=== PATIENT | female | born 1965 | race Caucasian/White ===

== ENCOUNTER 2018-07-26 13:02 | Emergency (ER) | payer OTHER ==
[~2018-07-26] VITALS: Ht 167.6 cm; Wt 68.0 kg
[~2018-07-26 13:02] MED LIST: BACTRIM DS TAB1 EACH PO; CEPHALEXIN500 MG PO; CIPRO500 MG PO; NORCO 5-325 TA1 EACH PO
== END 2018-07-26 13:31 | disposition home or self-care (01) ==
LOC: ED 13:02
DX: M79.602 Pain in left arm (principal); R21 Rash and other nonspecific skin eruption

== ENCOUNTER 2020-03-20 10:09 | Emergency (ER) | payer OTHER ==
[~2020-03-20] VITALS: Ht 167.6 cm; Wt 68.0 kg
--- OUTSIDE RECORDS SUMMARY | ~2020-03-20 | XMS | Encounter Summary ---
Demographics + + + | Address | [address] | | | [place] [address] | + + + | Home Phone | | + + + | Preferred Language | Unknown | + + + | Marital Status | | + + + | Congregational Affiliation | 1013 | + + + | Race | Unknown | + + + | Ethnic Group | Not or | + + + Author + + + | Author | [facility] | | | and [place] | + + + | Organization | [facility] | | | and [place] | + + + | Address | Unknown | + + + | Phone | Unavailable | + + + Support + + +---------+ + | Name | Relationship | Address | Phone | + + +---------+ + | Aggie Black | ECON | Unknown | | + + +---------+ + | Wily Beauregard | ECON | Unknown | | + + +---------+ + Care Team Providers + +------+ + | Care Uniform Patrol Police Officer Name | Role | Phone | + +------+ + | No, Physician | PCP | Unavailable | + +------+ + Reason for Visit +--------+ + | Reason | Comments | +--------+ + | Rash | | +--------+ + Encounter Details +--------+ + + + + | Date | Type | Department | Care Team | Description | +--------+ + + + + | 05/06/ | Emergency | [facility] | Bam Dean, | Herpes zoster | | 2017 | | [facility] | MD [address] | without complication | | | | CENTER [address] | [place], [place] | (Primary Dx); Chest | | | | [place], [place] | [address] | pain, unspecified | | | | [address] | | type | | | | [phone] | | | +--------+ + + + + Social History + + + +--------+------+ | Tobacco Use | Types | Packs/Day | Years | Date | | | | | Used | | + + + +--------+------+ | Current Every Day | Cigarettes | 1 | | | | Smoker | | | | | + + + +--------+------+ + + +---------+ + | Alcohol Use | Drinks/Week | oz/Week | Comments | + + +---------+ + | Yes | | | rarely | + + +---------+ + + + + | Sex Assigned at | Date Recorded | | | | + + + | Not on file | | + + + documented as of this encounter Last Filed Vital Signs + + + + + | Vital Sign | Reading | Time Taken | Comments | + + + + + | Blood Pressure | 110/96 | 05/06/2017 6:42 PM | | | | | PDT | | + + + + + | Pulse | 94 | 05/06/2017 6:42 PM | | | | | PDT | | + + + + + | Temperature | 36 C (96.8 F) | 05/06/2017 6:42 PM | | | | | PDT | | + + + + + | Respiratory Rate | 12 | 05/06/2017 6:42 PM | | | | | PDT | | + + + + + | Oxygen Saturation | 100% | 05/06/2017 6:42 PM | | | | | PDT | | + + + + + | Inhaled Oxygen | - | - | | | Concentration | | | | + + + + + | Weight | 65.8 kg (145 lb) | 05/06/2017 6:42 PM | | | | | PDT | | + + + + + | Height | 167.6 cm (5' 6") | 05/06/2017 6:42 PM | | | | | PDT | | + + + + + | Body Mass Index | 23.4 | 05/06/2017 6:42 PM | | | | | PDT | | + + + + + documented in this encounter Discharge Instructions AttachmentsThe following attachments cannot be sent through Care Everywhere.Asher (Herpe s Zoster) (Lebanese)documented in this encounter Medications at Time of Discharge + + + +---------+ + + | Medication | Sig | Dispensed | Refills | Start | End Date | | | | | | Date | | + + + +---------+ + + | acyclovir | Take 1 tablet by | 35 | 0 | 05/06/20 | | | (ZOVIRAX) 800 mg | mouth 5 times daily | tablet | | 17 | 7 | | tablet | for 7 days. | | | | | + + + +---------+ + + | | Take 1 tablet by | 30 | 0 | 05/06/20 | | | HYDROcodone-acetamin | mouth every 6 hours | tablet | | 17 | 8 | | ophen (NORCO) 5-325 | as needed. | | | | | | mg per tablet | | | | | | + + + +---------+ + + | lidocaine | Apply up to 3 | 30 | 0 | 05/06/20 | | | (LIDODERM) 5% patch | patches at once in a | patch | | 17 | 8 | | | 12 hour period to | | | | | | | affected area; | | | | | | | remove after 12 | | | | | | | hours | | | | | + + + +---------+ + + | methylPREDNISolone | Follow package | 21 | 0 | 05/06/20 | | | (MEDROL DOSEPAK) 4 | directions. | tablet | | 17 | 8 | | mg tablet | | | | | | + + + +---------+ + + documented as of this encounter ED Notes Amelia Juan RN - 05/06/2017 6:42 PM PDTC/o Rt rib/chest pain & rash. Possible shingles . axBam weathers MD - 05/06/2017 6:40 PM PDT [facility] Leslie Leung Emergency Department Encounter Note [address] [place] [id number] PCP:No Physician on file ED08 CHIEF COMPLAINT: Chief Complaint Patient presents with Rash HPI Leslie Leung is a 51 y.o. female who presents to the Emergency Department with chest wall pain on the right. This is a 51-year-old female who developed a severe burning type pain i n her back wrapping around her chest at about the T4 dermatome. Now she has a large vesicul ar burning rash associated with pain. There are lesions on the skin. The rash is made wors e with any movement. Nothing makes it better. Initially, she felt she had chest pain and h e could not breathe. That has resolved but now the pain from the rash has worsened. PAST MEDICAL & SURGICAL HISTORY History reviewed. No pertinent past medical history. History reviewed. No pertinent surgical history. CURRENT MEDICATIONS Previous Medications No medications on file ALLERGIES Allergies Allergen Reactions Sulfa Antibiotics Other (See Comments) "lip swelling" FAMILY AND SOCIAL HISTORY History reviewed. No pertinent family history. Social History Social History Marital status: Spouse name: N/A Number of children: N/A Years of education: N/A Social History Main Topics Smoking status: Current Every Day Smoker Packs/day: 1.00 Types: Cigarettes Smokeless tobacco: None Alcohol use Yes Comment: rarely Drug use: Types: Marijuana Sexual activity: Not Asked Other Topics Concern None Social History Narrative None REVIEW OF SYSTEMS Review of Systems Constitutional: Negative for chills and fever. Cardiovascular: Positive for chest pain. Skin: Positive for rash. As in history of present illness. A 10 system review was otherwise negative. PHYSICAL EXAM VITAL SIGNS: (first vital signs):Temp: 36 C (96.8 F) Pulse: 94 Resp: 12 SpO2: 100 % BP: (!) 110/96 Body mass index is 23.4 kg/m. Constitutional: female patient, anxious, alert and appropriate, conversant with nurse and staff. HEENT: Atraumatic, patient follows me around the room with their eyes, PERRL, Oropharynx s hows no redness, moist mucus membranes. Skin: Warm, Dry. Capillary refill is brisk <3 seconds and shows good perfusion on areas o f visible skin. The patient does have a vesicular rash over the T4 dermatome on the right side. It is very clearly shingles and stops at the midline Neurologic: Alert & oriented. Cranial nerves II-XII intact. No focal deficits. Gait is n ormal. Speech is normal. Psychiatric: Normal mood, affect and judgement. No evidence of suicidal or homicidal idea tion at this time. LABS No results found for this or any previous visit. IMAGING STUDIES Recent imaging: No results found for this or any previous visit (from the past 360 hour(s)). ED COURSE & MEDICAL DECISION MAKING Pertinent Labs & Imaging studies were reviewed along with EMS notes and retirement record s if applicable. Medication and Allergy lists reviewed in [facility]. Nurses note and old record s were reviewed if available within [facility] ER course 18:40 - Patient care initiated. After introducing myself to the patient, I performed a car eful history and physical examination. This is a 51-year-old female with a very clear-cut case of herpes zoster. We will treat wi th oral pain medications, steroids, antivirals, and patches. Last Set of Vital Signs: Temp: 36 C (96.8 F) Pulse: 94 Resp: 12 SpO2: 100 % BP: (!) 110 /96 FINAL IMPRESSION 1. Herpes zoster without complication 2. Chest pain, unspecified type Disposition: Discharge home Condition: Stable Follow-up Information [facility]. Specialty: Emergency Medicine Why: If symptoms worsen Contact information: [address] [place] [address] New Prescriptions ACYCLOVIR (ZOVIRAX) 800 MG TABLET Take 1 tablet by mouth 5 times daily for 7 days. HYDROCODONE-ACETAMINOPHEN (NORCO) 5-325 MG PER TABLET Take 1 tablet by mouth every 6 ho urs as needed. LIDOCAINE (LIDODERM) 5% PATCH Apply up to 3 patches at once in a 12 hour period to affe cted area; remove after 12 hours METHYLPREDNISOLONE (MEDROL DOSEPAK) 4 MG TABLET Follow package directions. Discontinued Medications No medications on file Discharge References/Attachments Shingles (Herpes Zoster) (Lebanese) Portions of this chart may have been created with [employer]ima voice recognition software. Occasi onal wrong-word or sound-alike substitutions may have occurred due to the inherent galdamez itations of voice recognition software. Please read the chart carefully and recognize, using context, where these substitutions have occurred. Bam Dean MD 05/06/17 1848 documented in this e ncounter Plan of Treatment Not on filedocumented as of this encounter Visit Diagnoses + + | Diagnosis | + + | Herpes zoster without complication - Primary | + + | Chest pain, unspecified type | + + documented in this encounter Administered Medications + +--------+ + +------+------+ | Medication Order | MAR | Action | Dose | Rate | Site | | | Action | Date | | | | + +--------+ + +------+------+ | HYDROcodone-acetaminophen | Given | 05/06/20 | 1 tablet | | | | (NORCO) 5-325 mg per tablet 1 | | 17 6:54 | | | | | tablet 1 tablet, Oral, ONCE, Mon | | PM PDT | | | | | 05/06/17 at 1845, For 1 dose | | | | | | + +--------+ + +------+------+ +---+---+ | | | +---+---+ + +---------+ +---------+---+ + | lidocaine (LIDODERM) 5% patch 3 | Patch | 05/06/20 | 3 | | Chest-Ri | | patch 3 patch, Transdermal, | Applied | 17 6:54 | patches | | ght | | ONCE, 05/06/17 at 1845, For 1 | | PM PDT | | | Anterior | | dose, Apply for 12 hours, then | | | | | | | remove for 12 hours., Time to | | | | | | | remove patch: 6:41 AM | | | | | | + +---------+ +---------+---+ + +---+---+ | | | +---+---+ documented in this encounter
--- OUTSIDE RECORDS SUMMARY | ~2020-03-20 | XMS | Encounter Summary ---
Demographics + + + | Address | [address] | | | [place] [address] | + + + | Home Phone | | + + + | Preferred Language | Unknown | + + + | Marital Status | | + + + | Congregation Affiliation | 1013 | + + + | Race | Unknown | + + + | Ethnic Group | Not or | + + + Author + + + | Author | [facility] | | | and [place] | + + + | Organization | [facility] | | | and [place] | + + + | Address | Unknown | + + + | Phone | Unavailable | + + + Support + + +---------+ + | Name | Relationship | Address | Phone | + + +---------+ + | Aggie Black | ECON | Unknown | | + + +---------+ + | Wily Darden | ECON | Unknown | | + + +---------+ + Care Team Providers + +------+ + | Care Manager Change Name | Role | Phone | + +------+ + PCP | Unavailable | + +------+ + Encounter Details +--------+ + + + + | Date | Type | Department | Care Team | Description | +--------+ + + + + | 02/15/ | Hospital | [facility] | Scottie Elliott | | | 2003 | Encounter | [facility] | [address] | | | | | EMERGENCY [address] | [place] [address] | | | | | [address] [place] | [phone] | | | | | [address] | | | | | | [phone] | Physician, Er | | +--------+ + + + + Social History + +-------+ +--------+------+ | Tobacco Use | Types | Packs/Day | Years | Date | | | | | Used | | + +-------+ +--------+------+ | Never Assessed | | | | | + +-------+ +--------+------+ + + + | Sex Assigned at | Date Recorded | | | | + + + | Not on file | | + + + documented as of this encounter Plan of Treatment Not on filedocumented as of this encounter Visit Diagnoses Not on filedocumented in this encounter"
--- OUTSIDE RECORDS SUMMARY | ~2020-03-20 | XMS | Encounter Summary ---
Demographics + + + | Address | [address] | | | [place] [address] | + + + | Home Phone | | + + + | Preferred Language | Unknown | + + + | Marital Status | | + + + | Sabianist Affiliation | 1013 | + + + | Race | Unknown | + + + | Ethnic Group | Not or | + + + Author + + + | Author | [facility] | | | and [place] | + + + | Organization | [facility] | | | [...] Team Providers + +------+ + | Care Cafeteria Helper Name | Role | Phone | + +------+ + | Miguel Gomez | PCP | | + +------+ + Reason for Visit +--------+ + | Reason | Comments | +--------+ + | Other | HCV | +--------+ + Evaluate & Treat (Routine) +--------+--------+ + + + + | Status | Reason | Specialty | Diagnoses / | Referred By | Referred To | | | | | Procedures | Contact | Contact | +--------+--------+ + + + + | Closed | | | Diagnoses | Jason, | Marialuisa, | | | | | Unspecified | TITO Rivera | [place], | | | | | viral | [address] | | | | | hepatitis C | [address] | | | | | without | [address] | | | | | hepatic coma | [place], | [place], | | | | | Procedures | [place] [address] | [place] [address] | | | | | office | Phone: | Phone: | | | | | visit | [phone] | [phone] | | | | | | Fax: | Fax: | | | | | | [phone] | [phone] | +--------+--------+ + + + + Encounter Details +--------+---------+ + + + | Date | Type | Department | Care Team | Description | +--------+---------+ + + + | 11/05/ | Office | [facility] | [facility], | Chronic hepatitis C | | 2019 | Visit | GASTROENTEROLOGY | [address] | without hepatic coma | | | | [address] | [address] | (HCC) (Primary Dx); | | | | [address] [place], [place] | [place], [place] | Heroin addiction | | | | [address] | [address] | (HCC) | | | | [phone] | | | +--------+---------+ + + + Social History + + + +--------+------+ | Tobacco Use | Types | Packs/Day | Years | Date | | | | | Used | | + + + +--------+------+ | Current Every Day | Cigarettes | 1 | | | | Smoker | | | | | + + + +--------+------+ + +---+---+---+ | Smokeless Tobacco: | | | | | Never Used | | | | + +---+---+---+ + + | Tobacco Cessation: Counseling Given: Yes | + + + + +---------+ + | Alcohol Use [...] + + + | Blood Pressure | 108/76 | 11/05/2018 10:15 AM | | | | | PDT | | + + + + + | Pulse | 81 | 11/05/2018 10:15 AM | | | | | PDT | | + + + + + | Temperature | 36.6 C (97.9 F) | 11/05/2018 10:15 AM | | | | | PDT | | + + + + + | Respiratory Rate | 16 | 11/05/2018 10:15 AM | | | | | PDT | | + + + + + | Oxygen Saturation | 100% | 11/05/2018 10:15 AM | | | | | PDT | | + + + + + | Inhaled Oxygen | - | - | | | Concentration | | | | + + + + + | Weight | 69.4 kg (153 lb) | 11/05/2018 10:15 AM | | | | | PDT | | + + + + + | Height | - | - | | + + + + + | Body Mass Index | 24.69 | 08/22/2017 11:03 AM | | | | | PST | | + + + + + documented in this encounter Functional Status + + + + | Functional Status | Response | Date of Assessment | + + + + | Are you deaf or do you have serious | No | 08/28/2017 | | difficulty hearing? | | | + + + + | Are you blind or do you have serious | No | 08/28/2017 | | difficulty seeing, even when wearing | | | | glasses? | | | + + + + | Do you have serious difficulty walking or | No | 08/28/2017 | | climbing stairs? (5 years old or older) | | | + + + + | Do you have difficulty dressing or bathing? | No | 08/28/2017 | | (5 years old or older) | | | + + + + | Because of a physical, mental, or emotional | No | 08/28/2017 | | condition, do you have difficulty doing | | | | errands alone such as visiting a doctor's | | | | office or shopping? [15 years old or | | | | older)] | | | + + + + + + + + | Cognitive Status | Response | Date of Assessment | + + + + | Because of a physical, mental, or emotional | No | 08/28/2017 | | condition, do you have serious difficulty | | | | concentrating, remembering, or making | | | | decisions? (5 years old or older) | | | + + + + documented as of this encounter Progress Notes Pascale Elam ARNP - 11/05/2018 10:00 AM PDTFormatting of this note might be differe nt from the original. PATIENT NAME: Leslie Wilson : 1965: AGE: 53 y.o. REFERRED BY: Miguel Gomez PRIMARY CARE: TITO Villa CHIEF COMPLAINT: Leslie Wilson is a 53 y.o. female referred by Miguel Gomez for evaluation and tr eatment of HCV. HISTORY OF PRESENT ILLNESS: She was initially diagnosed with HCV 20 years ago. Likely cause of infection of HCV is hist ory of IV drug use or intranasal drug use. Has never been treated for HCV in the past. She does not remember being told a fibrosis level. Last drank alcohol: last week, she had 4-5 vodka drinks. She reports that she typically dri nks about once every 6 months. Last smoked marijuana: about 6 months ago. Last used illegal drugs: This am. She is waiting for Methadone clinic to open. Clinic is se t to open 11/10/2018. She has appointment 11/11/2018 No known risk factors for NAFLD. There is no known personal or family history of autoimmune diseases. Denies ascites, jaundice, hematemesis, peripheral edema, sleep changes, or confusion. Allergies Allergen Reactions Sulfa Antibiotics Other (See Comments) "lip swelling" Past Medical History: Diagnosis Date Hepatitis C Tobacco abuse Past Surgical History: Procedure Laterality Date DILATION AND CURETTAGE OF UTERUS INCISION AND DRAINAGE Right 08/26/2017 Procedure: INCISION AND DRAINAGE RIGHT SHOULDER WITH WOUND CLOSURE OVER DRAIN; Surgeon: Diana Mclain MD; Location: [facility] MAIN OR ROTATOR CUFF REPAIR N/A 08/22/2017 Procedure: I&D of Right Shoulder Abscess and Wound Vac Placement; Surgeon: Ernesto wolfe MD; Location: [facility] MAIN OR TONSILLECTOMY AND ADENOIDECTOMY Family History Problem Relation Age of Onset TIA Mother Hypertension Mother Diabetes Mother Osteoporosis Mother Cancer Father Prostate Social History Socioeconomic History Marital status: Spouse name: Not on file Number of children: Not on file Years of education: Not on file Highest education level: Not on file Social Needs Financial resource strain: Not on file Food insecurity - worry: Not on file Food insecurity - inability: Not on file Transportation needs - medical: Not on file Transportation needs - non-medical: Not on file Occupational History Not on file Tobacco Use Smoking status: Current Every Day Smoker Packs/day: 1.00 Types: Cigarettes Smokeless tobacco: Never Used Substance and Sexual Activity Alcohol use: Yes Comment: rarely Drug use: Yes Types: Marijuana Sexual activity: Not on file Other Topics Concern Not on file Social History Narrative Not on file Review of Systems Constitutional: Negative for diaphoresis, fatigue, fever and unexpected weight change. HENT: Positive for rhinorrhea. Negative for congestion, hearing loss, mouth sores and troub le swallowing. Eyes: Negative for redness and visual disturbance. Respiratory: Positive for cough. Negative for choking, chest tightness, shortness of breath and wheezing. Cardiovascular: Negative for chest pain, palpitations and leg swelling. Gastrointestinal: Positive for nausea. Negative for abdominal distention, abdominal pain, a nal bleeding, blood in stool, constipation, diarrhea, rectal pain and vomiting. Endocrine: Denies enlarged thyroid Genitourinary: Negative for dysuria, flank pain and frequency. Musculoskeletal: Positive for back pain. Negative for arthralgias and joint swelling. Skin: Negative for color change and rash. Neurological: Positive for numbness. Negative for seizures, syncope, weakness and headaches . Hematological: Does not bruise/bleed easily. Denies anemia or enlarged lymph glands. Psychiatric/Behavioral: Negative for dysphoric mood. The patient is not nervous/anxious. OBJECTIVE: PHYSICAL EXAM General: well developed, well nourished, in no acute distress, no muscle wasting noted Head: normocephalic and atraumatic Eyes: Sclera clear Mouth: MMM Lungs: Clear to auscultate bilaterally and throughout Heart: regular rate and rhythm Abdomen: Soft, non tender, non distended, bowel tones positive times 4 quadrants, negative Kaycee y's sign, negative rebound tenderness, no guarding, no hepatosplenomegaly palpated. Msk: symmetrical with no deformity, with normal posture and gait, normal strength. Extremities: no clubbing, cyanosis, edema, or deformity noted Neurologic: no focal deficits, cranial nerves II-XII grossly intact, Negative for asterixis Skin: intact without lesions or rashes. Negative for spider angioma Psych: alert and cooperative; normal mood and affect; normal attention span and concentration, No visits with results within 1 Month(s) from this visit. Latest known visit with results is: Abstract on 09/18/2018 Component Date Value Ref Range Status HEP A IGM 09/19/2017 Non Reactive Non Reactive Final Hepatitis B Surface Ag, External 09/19/2017 Negative Final Hepatitis B Core Ab, Total 09/19/2017 Non Reactive Non Reactive Final HCV Ab 09/19/2017 Positive Final Signal/Cutoff 09/19/2017 38.98 Final ASSESSMENT: 1. Chronic hepatitis C without hepatic coma (HCC) US Abdomen Limited 2. Heroin addiction (HCC) PLAN: Liver fibrosis: A liver biopsy has never been done. Requesting labs from previous hepatitis C workup. Once these records have been reviewed, w devi then order additional laboratory tests as needed. Ordered abdominal ultrasound for routine screening for HCC. APRI Lab Results Component Value Date AST 37 08/23/2017 ALT 31 08/23/2017 PLT 305 08/28/2017 ALBUMIN 2.7 (L) 08/23/2017 MELD Lab Results Component Value Date BILITOT 0.3 08/23/2017 CREA 0.91 08/27/2017 NA 139 08/27/2017 Vaccination: If it has not been done, recommend patient is vaccinated for both Hepatitis A and Hepatitis B. Transmission: Discussed following infection control guidelines. Inform tattoo parlors and [facility] providers of HCV infection. Avoid sharing personal items that might have blood on them, such as razors, toothbrushes, and nail clippers.Despite low risk of transmission throu gh routine sexual contact, recommend safe sex practices, especially if multiple sexual partn ers. Substance use/abuse: Patient was educated on the importance of avoiding all alcohol, illega l drugs, and marijuana. Patient was advised that it does not safe to use heroin and then drive. Highly encouraged patient to have her friend drive her home. Patient agreed. Contraindications to HCV treatment: Absolute contraindications to HCV treatment include: 1. Short life expectancy.severe co morbidities (less than 10 years). 2. Known advanced cirrhosis with clinical decompensation (e.g. Ascites, encephalopathy, va riceal bleeding or SBP) 3. or inability to reliably use control. 4. Severe cardiac disease. Will follow up with results. Patient is to call with any question or concerns. Any fevers, chills, chest pain, SOB or other serious symptoms patient is to call the office or go to ER . Cc: TITO Villa This note was dictated using voice recognition software. Please contact me if there are an y questions regarding its content. Electronically signed by DL Ovalles at 10/27 6:06 PM PDTdocumented in this encounter Plan of Treatment + +---------+--------+ + + | Name | Type | Priori | Associated Diagnoses | Order Schedule | | | | ty | | | + +---------+--------+ + + | US Abdomen Limited | Imaging | Routin | Chronic hepatitis | Expected: | | | | e | C without hepatic | 11/05/2018, Expires: | | | | | coma (HCC) | 03/05/2019 | + +---------+--------+ + + documented as of this encounter Procedures + +--------+ + + + | Procedure Name | Priori | Date/Time | Associated Diagnosis | Comments | | | ty | | | | + +--------+ + + + | LABS - EXTERNAL SCAN | | 11/13/2018 | | Results for this | | | | 12:00 AM | | procedure are in the | | | | PDT | | results section. | + +--------+ + + + documented in this encounter Results LABS - EXTERNAL SCAN (11/13/2018 12:00 AM PDT) + + + | Narrative | Performed At | + + + | Ordered by an | | | unspecified provider. | | + + + documented in this encounter Visit Diagnoses + + | Diagnosis | + + | Chronic hepatitis C without hepatic coma (HCC) - Primary | + + | Heroin addiction (HCC) Opioid type dependence, unspecified | + + documented in this encounter
--- OUTSIDE RECORDS SUMMARY | ~2020-03-20 | XMS | Encounter Summary ---
Demographics + + + | Address | [address] | | | [place] [address] | + + + | Home Phone | | + + + | Preferred Language | Unknown | + + + | Marital Status | | + + + | Church Affiliation | 1013 | + + + | Race | Unknown | + + + | Ethnic Group | Not or | + + + Author + + + | Author | [facility] | | | and [place] | + + + | Organization | [facility] | | | and [...] Team Providers + +------+ + | Care Relocation Director Name | Role | Phone | + +------+ + | No, Physician | PCP | Unavailable | + +------+ + Reason for Visit + + + | Reason | Comments | + + + | Wound Infection | | | (Complicated) | | + + + Auth/Cert +--------+--------+ + + + + | Status | Reason | Specialty | Diagnoses / | Referred By | Referred To | | | | | Procedures | Contact | Contact | +--------+--------+ + + + + | | | | Diagnoses | | | | | | | Abscess of | | | | | | | deltoid | | | | | | | region | | | | | | | Procedures | | | | | | | I&D of | | | | | | | Left/Right | | | | | | | Shoulder | | | | | | | Abscess | | | +--------+--------+ + + + + Encounter Details +--------+---------+ + + + | Date | Type | Department | Care Team | Description | +--------+---------+ + + + | 08/26/ | Surgery | [facility] | Micha Ayala | INC[facility] AND | | 2018 | | [facility] | MD Genaro [address] | DRAINAGE RIGHT | | | | [address] | [place], [place] | SHOULDER WITH WOUND | | | | [place] | [phone] | CLOSURE OVER DRAIN | | | | [phone] | | | | | | [phone] | | | +--------+---------+ + + + [...] + + + | Blood Pressure | 143/85 | 08/26/2017 5:40 PM | | | | | PST | | + + + + + | Pulse | 58 | 08/26/2017 5:40 PM | | | | | PST | | + + + + + | Temperature | 36.3 C (97.3 F) | 08/26/2017 4:40 PM | | | | | PST | | + + + + + | Respiratory Rate | 12 | 08/26/2017 5:40 PM | | | | | PST | | + + + + + | Oxygen Saturation | 99% | 08/26/2017 5:40 PM | | | | | PST | | + + + + + | Inhaled Oxygen | - | - | | | Concentration | | | | + + + + + | Weight | 65.8 kg (145 lb 1 | 08/26/2017 8:45 AM | | | | oz) | PST | | + + + + + | Height | 167.6 cm (5' 6") | 08/22/2017 11:03 AM | | | | | PST | | + + + + + | Body Mass Index | 23.41 | 08/22/2017 11:03 AM | | | [...] + + documented as of this encounter Discharge Summaries Yonathan Krause PA-C - 08/28/2017 9:15 AM PSTFormatting of this note might be differe nt from the original. Name: Jessica Damon : 1965 Age: 52 y.o. Sex: female Todays Date: 08/28/2017 PCP:No Physician on file Date of admission: 08/22/17 Date of Discharge: 08/28/17 Admitting Physician: Dr. Micha Ayala Discharging Physician: Yonathan Krause PA-C Admitting Diagnosis: Chief Complaint Patient presents with Wound Infection (Complicated) *right shoulder abscess *Tobacco abuse *Heroin use Discharge Diagnosis: Right shoulder abscess with incision and drainage Admitting Condition: Stable and Comfortable Discharge Condition: Comfortable. Pain well controlled. Hospital Course: Pt was admitted to [facility] for a incision and drainage of right shoulder abscess. This surgical procedure was performed by Dr. Micha Ayala and Yonathan Krause PA-C. Pt was admitted to inpatient status for recovery. Wound VAC was install ed at the time of incision and drainage. This is in place for 3 days. Within closure on po stoperative day 4 and placed a GEOFFREY drain. Drain output is minimal over the past 2 days with less than 5 ML's out produced last night. The GEOFFREY drain was pulled today and bandages placed at the right shoulder incision and drain site. The plan is for her to be discharged to [facility] for continued recovery and rehabilitation. She will be sent home with Keflex 5 mg 4 times a day 14 days. Follow-up in our office in approximately 1 week for reevaluation. Consults: PT, OT, Respiratory Labs: Vitals: 08/27/17 1516 08/27/17 2026 08/27/17 2300 08/28/17 0847 BP: 119/74 108/59 109/61 123/83 Pulse: 74 77 71 72 Resp: 16 16 16 16 Temp: 36.8 C (98.2 F) 37.1 C (98.8 F) 36.7 C (98.1 F) 35.8 C (96.4 F) TempSrc: Oral Oral Oral Oral SpO2: 96% 94% 94% 99% Weight: Height: @[id number]@ Recent Results (from the past 24 hour(s)) Basic Metabolic Panel Result Value Ref Range NA 139 136 - 149 mmol/L K 3.8 3.5 - 5.1 mmol/L CL 103 98 - 109 mmol/L CO2 29 24 - 31 mmol/L ANION GAP 7 3 - 16 mmol/L GLUCOSE 125 (H) 70 - 109 mg/dL BUN 20 (H) 7 - 18 mg/dL Creatinine, Serum/Plasma 0.91 0.60 - 1.30 mg/dL eGFR if not >60 >=60 mL/min/1.73m2 CALCIUM 8.6 8.3 - 10.5 mg/dL BUN/CREA 22.0 CBC with Differential Result Value Ref Range WBC 13.2 (H) 4.0 - 11.0 K/uL RBC 3.81 3.70 - 5.20 M/uL Hgb 10.7 (L) 11.5 - 16.0 g/dL Hct 32.7 (L) 34.0 - 47.0 % MCV 85.9 83.0 - 101.0 fL MCH 28.1 28.0 - 35.0 pg MCHC 32.7 32.0 - 36.0 g/dL RDW-CV 13.1 <15.0 % Platelet Count 305 140 - 440 K/uL MPV 7.9 fL % Neutrophils 58.5 45.0 - 82.0 % % Lymphocytes 31.2 20.0 - 45.0 % % Monocytes 6.7 4.0 - 12.0 % % Eosinophils 3.2 0.0 - 5.0 % % Basophils 0.4 0.0 - 1.0 % Absolute Neutrophils 7.70 1.80 - 8.50 K/uL Absolute Lymphocytes 4.10 (H) 0.60 - 3.20 K/uL Absolute Monocytes 0.90 0.00 - 1.00 K/uL Absolute Eosinophils 0.40 0.00 - 0.40 K/uL Absolute Basophils 0.10 0.00 - 0.10 K/uL Treatments: No current facility-administered medications on file prior to encounter. No current outpatient prescriptions on file prior to encounter. Discharge Physical Exam: Constitutional:Alert and oriented x 3, in no acute distress Head: Atraumatic and normocephalic Eyes: EOM intact bilaterally Respiratory: Non-labored respiration, no acute SOA Cardiovascular: No ankle or foot edema lower extremities Skin: Removed right anterior shoulder GEOFFREY drain today cement: Less than 5 ML's output overni ght. Incision sites cleaned with Betadine. Dressed with Aquasol bandage over incision and drain site. There is no erythema, induration, ecchymosis, blistering or signs of retained i nfection at the right shoulder. No purulent drainage observed Neuro: Neurovascularly intact lower extremities, bilaterally Pysch: Cooperative with exam and answers questions promptly when asked. M/S: Moves the right elbow and fingers well. Did not assess range of motion of the shoulde r Discharge Medications New Medications Details oxyCODONE 5 mg tablet Take 2 tablets by mouth every 6 hours as needed for Pain. aka: ROXICODONE Changed Medications Details cephalexin 500 mg capsule Take 1 capsule by mouth 4 times daily for 14 days. What changed: when to take this additional instructions aka: KEFLEX Discontinued Medications ibuprofen 200 mg tablet aka: ADVIL, MOTRIN Diet: Regular diet Activity: activity as tolerated on affected shoulder with light activities Wound Care: Keep aquacell bandage in place. At right shoulder until first postoperative vi sit next week Follow Up: Follow up as scheduled with Dr. Ayala at office. Yonathan Krause PA-C 08/28/17. This not was dictated using Swirl Voice recognition system. There may be minor errors in grammar. documented in t his encounter Discharge Instructions Instructions Yonathan Krause PA-C - 08/28/2017Please keep appointment in Dr Ayala' s office as already scheduled. Keep bandages clean and intact at the right shoulder. Keep aqua cell bandage in place at the right shoulder until first postoperative visit next week Take pain medication only as prescribed as necessary. Once prescribed pain medication is c ompleted continue with [id number] anti-inflammatories as needed for right shoulder yevgeniy n control First postoperative visit is scheduled for next week and sutures will be removed at this vi sit Continue with antibiotic Keflex as prescribed today and continue for duration of treatment If you have any questions, comments or concerns please feel free to contact our office Do not exceed 4,000 mg of acetaminophen (Tylenol) per day. Hydrocodone-acetaminophen ([place] ) and Oxycodone-acetaminophen (Percocet) have 325 mg acetaminophen per tablet. Regular [facility] acetaminophen is 325 mg per tablet. Extra strength has 500 mg per tablet. Do not consume alcohol while taking opioid mediations. If constipation arises, try docusate-senna one tablet twice daily; milk of magnesia 30 mL o nce each night; or Miralax one capful (17 grams) dissolved in half a cup of water once daily for 3 days. If constipation does not resolve within 3 days after discharge, contact the doc tor's office. documented in this encounter Medications at Time of Discharge + + + +---------+ + + | Medication | Sig | Dispensed | Refills | Start | End Date | | | | | | Date | | + + + +---------+ + + | cephalexin | Take 1 capsule by | 56 | 0 | 08/28/19 | | | (KEFLEX) 500 mg | mouth 4 times daily | capsule | | 18 | 8 | | capsule | for 14 days. | | | | | + + + +---------+ + + | oxyCODONE | Take 2 tablets by | 42 | 0 | 08/28/19 | | | (ROXICODONE) 5 mg | mouth every 6 hours | tablet | | 18 | 9 | | tablet | as needed for Pain. | | | | | + + + +---------+ + + documented as of this encounter Progress Notes Andres Capone MD - 08/27/2017 7:23 PM PSTFormatting of this note might be different fro m the original. [facility] Hospitalist Progress Note Jessica Damon is a 52 y.o. female INTERVAL HPI: This is a 52 y.o. female with a history of polysubstance abuse , Hepatitis C who presented on 08/22 with right shoulder pain s/p heroin injection in the deltoid 1.5 weeks prior to pre sentation. CT revealed abscess in deltoid region. S/p incision and drainage on 08/22; drain i n place. Wound culture growing Streptococcus intermedius. Vancomycin/zosyn were de-escalated to ceftriaxone. SUBJECTIVE: Doing well. Denies any chest pain, SOB, nausea or vomiting. VITALS: Temp: 36.8 C (98.2 F), Pulse: 74, Resp: 16, BP: 119/74, SpO2 96 % on room air at flow r ate 1L/min Temp Min: 35.9 C (96.6 F) Max: 37 C (98.6 F) Weight: 65.8 kg (145 lb) Intake/Output Summary (Last 24 hours) at 08/27/171922 Last data filed at 08/27/17 1300 Gross per 24 hour Intake 1200 ml Output 1100 ml Net 100 ml PHYSICAL EXAM: Gen Angelique - alert, cooperative and no distress Head - Normocephalic, without obvious abnormality Eyes - PERRL, conjunctiva/corneas clear ENT - mucous membranes moist Neck - supple Lungs - clear to auscultation, no wheezes or rales and unlabored breathing Heart - normal rate, regular rhythm, normal S1, S2, no murmurs, rubs, clicks or gallops Abdomen - soft, non-tender, without masses or organomegaly Extremities - Drain in situ over R arm Skin - no rashes Neurologic - No focal weakness clinically DIAGNOSTIC STUDIES: Available data and images were reviewed personally. Significant results and findings are a ddressed here or in the Assessment and Plan. Recent Results (from the past 24 hour(s)) Basic Metabolic Panel Result Value Ref Range NA 139 136 - 149 mmol/L K 3.8 3.5 - 5.1 mmol/L CL 103 98 - 109 mmol/L CO2 29 24 - 31 mmol/L ANION GAP 7 3 - 16 mmol/L GLUCOSE 125 (H) 70 - 109 mg/dL BUN 20 (H) 7 - 18 mg/dL Creatinine, Serum/Plasma 0.91 0.60 - 1.30 mg/dL eGFR if not >60 >=60 mL/min/1.73m2 CALCIUM 8.6 8.3 - 10.5 mg/dL BUN/CREA 22.0 No results found. Current Facility-Administered Medications: cefTRIAXone 2 g Intravenous Daily diphenhydrAMINE 12.5 mg Intravenous Q4H PRN Or diphenhydrAMINE 25 mg Oral Q4H PRN Or diphenhydrAMINE 25 mg Oral Q4H PRN docusate sodium 100 mg Oral BID PRN lactated ringers Intravenous Continuous magnesium hydroxide 30 mL Oral Nightly PRN melatonin 3 mg Oral Nightly PRN nicotine 1 patch Transdermal Daily ondansetron 4 mg Intravenous Q6H PRN oxyCODONE 5-20 mg Oral Q3H PRN ASSESSMENT and PLAN: Active Hospital Problems Diagnosis Heroin abuse Abscess of deltoid region Substance abuse Hepatitis C Resolved Hospital Problems Diagnosis Date Noted Date Resolved No resolved problems to display. 1. Abscess of deltoid region s/p I and D on 08/22 - h/o heroin injection in the deltoid 1.5 weeks prior to presentation. - Final Currently growing Streptococcus intermedius - blood culture NGTD - continue ceftriaxone - plan to remove the drain tomorrow if output is minimal per primary. - should be okay to switch to PO keflex 500mg QID for atleast 2 weeks after removal of drai nCrescencio Anthony d/w Infectious disease Pharmacy tomorrow. 2. Substance abuse with IM injections 3. Hepatitis C DVT Prophylaxis:encourage ambulation Diet: General Lines: Left arm PICC Code Status: Full Code. Disposition: Per primary team Total time of approximately 30 minutes was spent with the patient and/or patient's family, and/or on the patient's floor/unit, of which more than 50% was spent counseling and/or coord ination the patient's care as outlined above. Andres Capone 08/27/2017 19:23 [facility] Micha Valladares MD - 08/27/2017 8:03 AM PST Jessica Damon SUBJECTIVE: Feeling progressively better. No complaints other than wanting to go home. OBJECTIVE: Vitals with Comments 08/26/2017 08/27/2017 08/27/2017 08/27/2017 SYSTOLIC 121 - 135 - DIASTOLIC 59 - 81 - Pulse 82 69 62 56 Temp - - 97.9 - Resp 16 16 16 16 Weight - - - - Height - - - - SPO2 93 93 95 96 BMI - - - - Intake/Output Summary (Last 24 hours) at 08/27/17 0803 Last data filed at 08/27/17 0525 Gross per 24 hour Intake 1500 ml Output 3405 ml Net -1905 ml No results found for this or any previous visit (from the past 24 hour(s)). Microbiology Results (72 hrs) No results found for the last 72 hours. Bandages clean and dry. NV function intact to both hands. 5 cc out in drain last night. ASSESSMENT: Stable. PLAN: D/C drain tomorrow if minimal output and switch to oral antibiotics. Micha Ayala MD Sonia Ruffin RN - 08/26/2017 6:42 PM PSTPt just arrived, to 310 post surgery. Vital signs stable. Alert and Oriented x 4. Pt pain score 7, will medicate. GEOFFREY drain with T elfa and Tegaderm. Sanguinous drainage, dressing has scant amounts of sanguinous drainage. Hira Danielson MD - 08/25/2017 4:45 PM PST [facility] Hospitalist Progress Note Jessica Damon is a 52 y.o. female ASSESSMENT and PLAN: Active Hospital Problems Heroin abuse Abscess of deltoid region Currently growing a alpha strep which would be an unusual pathogen for a soft tissue infect ion. Will convert from Zosyn and vancomycin to IV ceftriaxone. This patient is not a zack date for outpatient IV antibiotic therapy given that she was skin popping heroin as an etiol ogy for infection. Substance abuse Hepatitis C SUBJECTIVE: Patient reports no new problems. She denies tingling or numbness in her arm, nausea, short ness of breath, or other discomfort. VITALS: Temp: 36.7 C (98.1 F), Pulse: 54, Resp: 16, BP: 139/87, SpO2 98 % on room air at flow r ate L/min Temp Min: 36.7 C (98.1 F) Max: 37.1 C (98.8 F) Weight: 65.8 kg (145 lb) Intake/Output Summary (Last 24 hours) at 08/25/17 1645 Last data filed at 08/25/17 1000 Gross per 24 hour Intake 2510 ml Output 1100 ml Net 1410 ml PHYSICAL EXAM: Cardiovascular: Regular rate and rhythm Respiratory: Clear bilaterally Abdomen: Soft without tenderness Extremities: Examination right upper extremity shows improving erythema/induration DIAGNOSTIC STUDIES: Available data and images were reviewed personally. Significant results and findings are a ddressed here or in the Assessment and Plan. Lab Results Component Value Date HGB 10.5 (L) 08/23/2017 HCT 31.7 (L) 08/23/2017 PLT 284 08/23/2017 WBC 17.4 (H) 08/23/2017 Lab Results Component Value Date NA 141 08/24/2017 K 3.7 08/24/2017 CL 108 08/24/2017 CO2 28 08/24/2017 CREA 0.67 08/24/2017 BUN 12 08/24/2017 MG 1.7 (L) 08/23/2017 No results found for: POCGLU No results found for: POCGLU Xr Chest Ap Portable Result Date: 08/24/2017 CLINICAL INFORMATION: picc line placement. COMPARISON: 08/22/2017. FINDINGS: Portable fronta l chest radiograph. Left internal jugular central venous catheter with the tip at the superi or vena cava. Left PICC line the tip at the superior vena cava. Lungs: No focal airspace dis ease, pleural effusion, or pneumothorax. Heart/mediastinum: Cardiac silhouette is of normal size. Central pulmonary vasculature has a normal appearance. Bones: No acute osseous abnorma lity appreciated. IMPRESSION - Lines as above. No acute cardiopulmonary disease. Dictated an d Signed by: Ambrosio Albarado MD Electronically signed: 08/24/2017 12:19 PM Total time of approximately 20 minutes was spent with the patient and/or patient's family, and/or on the patient's floor/unit, of which more than 50% was spent counseling and/or coord ination the patient's care as outlined above. Hira Mullins 08/25/2017 16:45 [facility] Portions of this chart may have been created with Swirl voice recognition software. Occasi onal wrong-word or sound-alike substitutions may have occurred due to the inherent galdamez itations of voice recognition software. Please read the chart carefully and recognize, using context, where these substitutions have occurred Yonathan Ham P A-C - 08/25/2017 8:35 AM PST Name:Jessica Damon Todays Date: 08/25/2017 SUBJECTIVE: Stable; wants to go home today. OBJECTIVE: Wound vac in place at working appropriately; minimal output noted this am. Comfortable but anxious and verbalizes what she wants to go home. Long discussion about proper treatment f or her shoulder and out anticipated plan. Verbalizes understanding. Vitals with Comments 08/24/2017 08/24/2017 08/24/2017 08/25/2017 SYSTOLIC 116 132 145 139 DIASTOLIC 66 75 73 87 Pulse 64 54 52 54 Temp 97.7 99 98.8 98.1 Resp 16 16 16 16 Weight - - - - Height - - - - SPO2 96 95 98 98 BMI - - - - I/O last 3 completed shifts: In: 3490 [P.O.:2040; IV Piggyback:1450] Out: 1200 [Urine:1200] Vitals: 08/24/17 0802 08/24/17 1547 08/24/17 2000 08/25/17 0731 BP: 116/66 132/75 145/73 139/87 Pulse: 64 54 52 54 Resp: 16 16 16 16 Temp: 36.5 C (97.7 F) 37.2 C (99 F) 37.1 C (98.8 F) 36.7 C (98.1 F) TempSrc: Oral Oral Oral Oral SpO2: 96% 95% 98% 98% Weight: Height: No results found for this or any previous visit (from the past 24 hour(s)). Scheduled Meds: piperacillin-tazobactam 3.375 g Intravenous 3 times per day vancomycin 1 g Intravenous Q12H vancomycin per pharmacy Other Pharmacy Consult Continuous Infusions: PRN Meds:.diphenhydrAMINE OR diphenhydrAMINE OR diphenhydrAMINE, docusate sodium, m agnesium hydroxide, melatonin, ondansetron, oxyCODONE ASSESSMENT/PLAN: 1.Right shoulder abscess with I and D A. Awaiting final sensitivity results of right shoulder. Planning for closure of shoulder tomorrow. NPO at midnight today. Long discussion this am about her treatment plan. Contin ue with current tx plan. B. Patient is advised that if they have any questions, comments or concerns to contact our office. Electronically signed by: Yonathan Krause PA-C 08/25/2017 8:35 This note was dictated using the Swirl voice recognition system. Minor errors in grammar may have occurred Hira Danielson MD - 08/24/2017 3:04 PM PST [facility] Hospitalist Progress Note Jessica Damon is a 52 y.o. female ASSESSMENT and PLAN: Active Hospital Problems Heroin abuse Abscess of deltoid region Currently growing a alpha strep which would be an unusual pathogen for a soft tissue infect ion. If MRSA is not isolated and there is confidence with respect to the culture then certa inly ceftriaxone would be a good choice for continued antibiotic therapy while receiving IV treatment. With a history of heroin use and substance abuse placement of a PICC catheter ce rtainly should only be him placed in a supervised setting and removed if the patient attempt s AMA discharge. Substance abuse Hepatitis C SUBJECTIVE: Patient reports no new problems. She denies tingling or numbness in her arm, nausea, short ness of breath, or other discomfort. VITALS: Temp: 36.5 C (97.7 F), Pulse: 64, Resp: 16, BP: 116/66, SpO2 96 % on room air at flow r ate L/min Temp Min: 36.4 C (97.5 F) Max: 37 C (98.6 F) Weight: 65.8 kg (145 lb) Intake/Output Summary (Last 24 hours) at 08/24/17 1504 Last data filed at 08/24/17 0923 Gross per 24 hour Intake 1100 ml Output 1400 ml Net -300 ml PHYSICAL EXAM: Cardiovascular: Regular rate and rhythm Respiratory: Clear bilaterally Abdomen: Soft without tenderness Extremities: Examination right upper extremity shows improving erythema/induration DIAGNOSTIC STUDIES: Available data and images were reviewed personally. Significant results and findings are a ddressed here or in the Assessment and Plan. Lab Results Component Value Date HGB 10.5 (L) 08/23/2017 HCT 31.7 (L) 08/23/2017 PLT 284 08/23/2017 WBC 17.4 (H) 08/23/2017 Lab Results Component Value Date NA 141 08/24/2017 K 3.7 08/24/2017 CL 108 08/24/2017 CO2 28 08/24/2017 CREA 0.67 08/24/2017 BUN 12 08/24/2017 MG 1.7 (L) 08/23/2017 No results found for: POCGLU No results found for: POCGLU Xr Chest Ap Portable Result Date: 08/24/2017 CLINICAL INFORMATION: picc line placement. COMPARISON: 08/22/2017. FINDINGS: Portable fronta l chest radiograph. Left internal jugular central venous catheter with the tip at the superi or vena cava. Left PICC line the tip at the superior vena cava. Lungs: No focal airspace dis ease, pleural effusion, or pneumothorax. Heart/mediastinum: Cardiac silhouette is of normal size. Central pulmonary vasculature has a normal appearance. Bones: No acute osseous abnorma lity appreciated. IMPRESSION - Lines as above. No acute cardiopulmonary disease. Dictated an d Signed by: Ambrosio Albarado MD Electronically signed: 08/24/2017 12:19 PM Xr Chest Ap Portable Result Date: 08/22/2017 CLINICAL INFORMATION: Central Venous Catheter Placement . COMPARISON: None available. FINDI NGS: Portable frontal chest radiographs. Left internal jugular central venous catheter with the tip at the superior vena cava. Lungs: No focal airspace disease, pleural effusion, or pn eumothorax. Heart/mediastinum: Cardiac silhouette is of normal size. Central pulmonary vascu lature has a normal appearance. Bones: No acute osseous abnormality appreciated. IMPRESSION - Left internal jugular central venous catheter terminating at the superior vena cava. No pn eumothorax. Dictated and Signed by: Ambrosio Albarado MD Electronically signed: 08/22/2017 6:0 6 PM Total time of approximately 20 minutes was spent with the patient and/or patient's family, and/or on the patient's floor/unit, of which more than 50% was spent counseling and/or coord ination the patient's care as outlined above. Hira Mullins 08/24/2017 15:04 [facility] Portions of this chart may have been created with Swirl voice recognition software. Occasi onal wrong-word or sound-alike substitutions may have occurred due to the inherent galdamez itations of voice recognition software. Please read the chart carefully and recognize, using context, where these substitutions have occurred Manjula Case RN - 08/24/2017 1:29 PM PSTVascular access team note- Single lumen PICC placed LEFT basilic per INS standards after discussion with pt and consen t given in unhurried manner. Tolerated stx x1 well despite initial visible anxiety r/t proce dure. States post procedure that "it was a lot better than I thought it would be". Educati on and home management discussed with pt- questions asked and answered- post hospital plan o f care is not in place at this time, probabilities discussed. PICC flushes well and draws bl ood well. Thank you for this referral. Yonathan Ham PA-C - 08/24/2017 8:53 AM PSTFormatting of this note might be different from the or iginal. Name:Jsesica Damon Todays Date: 08/24/2017 SUBJECTIVE: Stable; notes increased pain this am. OBJECTIVE: Appears quite comfortable laying in bed. Family at bedside. Wound vac is operational this am w/ minimal amt of drainage in canister noted. Did not assess range of motion at shoulder . Moves elbow, fingers and wrist well. Vitals with Comments 08/23/2017 08/24/2017 08/24/2017 08/24/2017 SYSTOLIC 103 107 104 116 DIASTOLIC 59 64 61 66 Pulse 76 74 72 64 Temp 98.6 98.2 98.6 97.7 Resp 16 16 16 16 Weight - - - - Height - - - - SPO2 98 99 97 96 BMI - - - - I/O last 3 completed shifts: In: 2700 [P.O.:1800; I.V.:450; IV Piggyback:450] Out: 4750 [Urine:4650; Other:100] Vitals: 08/23/17 2042 08/24/17 0004 08/24/17 0420 08/24/17 0802 BP: 103/59 107/64 104/61 116/66 Pulse: 76 74 72 64 Resp: 16 16 16 16 Temp: 37 C (98.6 F) 36.8 C (98.2 F) 37 C (98.6 F) 36.5 C (97.7 F) TempSrc: Oral Oral Oral Oral SpO2: 98% 99% 97% 96% Weight: Height: Recent Results (from the past 24 hour(s)) CBC no Differential Collection Time: 08/23/17 11:54 Result Value Ref Range WBC 17.4 (H) 4.0 - 11.0 K/uL RBC 3.70 3.70 - 5.20 M/uL Hgb 10.5 (L) 11.5 - 16.0 g/dL Hct 31.7 (L) 34.0 - 47.0 % MCV 85.8 83.0 - 101.0 fL MCH 28.4 28.0 - 35.0 pg MCHC 33.2 32.0 - 36.0 g/dL RDW-CV 13.2 <15.0 % Platelet Count 284 140 - 440 K/uL MPV 8.5 fL Vancomycin, Trough Collection Time: 08/24/17 4:08 Result Value Ref Range DATE OF LAST DOSE TIME OF LAST DOSE VANCOMYCIN TROUGH 11.2 <=20.0 ug/mL Basic Metabolic Panel Collection Time: 08/24/17 4:08 Result Value Ref Range NA 141 136 - 149 mmol/L K 3.7 3.5 - 5.1 mmol/L CL 108 98 - 109 mmol/L CO2 28 24 - 31 mmol/L ANION GAP 5 3 - 16 mmol/L GLUCOSE 114 (H) 70 - 109 mg/dL BUN 12 7 - 18 mg/dL Creatinine, Serum/Plasma 0.67 0.60 - 1.30 mg/dL eGFR if not >60 >=60 mL/min/1.73m2 CALCIUM 8.8 8.3 - 10.5 mg/dL BUN/CREA 17.9 Scheduled Meds: ketorolac 30 mg Intravenous Once piperacillin-tazobactam 3.375 g Intravenous 3 times per day vancomycin 1 g Intravenous Q12H vancomycin per pharmacy Other Pharmacy Consult Continuous Infusions: PRN Meds:.diphenhydrAMINE OR diphenhydrAMINE OR diphenhydrAMINE, docusate sodium, m agnesium hydroxide, melatonin, ondansetron, oxyCODONE ASSESSMENT/PLAN: 1.Right shoulder abscess I and D A. Pain overall appears to be well controlled but I will give her a one time dose of torad ol 30mg. Discussed pain management with patient. Cultures still pending. Gram stain does demonstrate gram positive cocci and bacilli. Will wait for final c and s tomorrow. Continu e with current tx plan. B. Patient is advised that if they have any questions, comments or concerns to contact our office. Electronically signed by: Yonathan Krause PA-C 08/24/2017 8:53 This note was dictated using the Swirl voice recognition system. Minor errors in grammar may have occurred aMaciel an PharmD - 08/24/2017 8:32 AM PSTFormatting of this note might be different from the or iginal. VANCOMYCIN PER PHARMACY PROTOCOL: Subjective/Objective: Jessica Damon is a 52 y.o. female admitted on 08/22/2017 for right shoulder abscess Patien t is receiving vancomycin starting on 08/22/17 for right shoulder abscess. Patient has a pas t medical history of Hepatitis C. Allergies Sulfa antibiotics Historical Vancomycin dosing (previous & current encounter): none Admission Wt: Weight: 65.8 kg (145 lb) Current Wt: Weight: 65.8 kg (145 lb) Min/Max Temp past 24 hours:Temp Av.8 C (98.2 F) Min: 36.4 C (97.5 F) Max: 3 7 C (98.6 F) Estimated Creatinine Clearance: 90 mL/min (based on SCr of 0.67 mg/dL). Intake/Output Summary (Last 24 hours) at 08/24/17 0832 Last data filed at 08/24/17 0619 Gross per 24 hour Intake 1250 ml Output 1950 ml Net -700 ml Temp: [36.4 C (97.5 F)-37 C (98.6 F)] 36.5 C (97.7 F) Pulse: [64-79] 64 Resp: [16-18] 16 BP: (103-118)/(58-68) 116/66 Micro/Cultures/Diagnostics: Microbiology Results (Last 14 Days by Collected Date with Culture/Sensitivity) Procedure Component Value Units Date/Time Culture, Blood [[id number]] (Normal) Collected: 08/22/172044 Order Status: Completed Lab Status: Preliminary result Updated: 08/23/17850 Specimen: Blood from Peripheral Blood Culture No growth: Monitored continually by instrument for 5 days Culture, Blood [[id number]] (Normal) Collected: 08/22/172030 Order Status: Completed Lab Status: Preliminary result Updated: 08/23/1751 Specimen: Blood from Line Culture No growth: Monitored continually by instrument for 5 days Culture, Wound, Smear, w/Anaerobe [[id number]] Collected: 08/22/171809 Order Status: Sent Lab Status: In process Updated: 08/22/171809 Specimen: Wound from Arm Narrative: The following orders were created for panel order Culture, Wound, Smear, w/Anaerobe. Procedure Abnormality Status --------- ------ Culture, Wound, Smear[[id number]] Preliminary result Culture, Anaerobic[[id number]] In process Please view results for these tests on the individual orders. Culture, Wound, Smear [[id number]] Collected: 08/22/171809 Order Status: Completed Lab Status: Preliminary result Updated: 08/23/1747 Specimen: Wound from Arm Culture No growth to date Gram Stain Result 4+ White Blood Cells 4+ Gram positive cocci 2+ Gram positive bacilli Culture, Anaerobic [[id number]] Collected: 08/22/171809 Order Status: Resulted Lab Status: In process Updated: 08/22/171809 Specimen: Wound from Arm UA: none Recent Labs Lab 08/24/17 0408 08/23/17 1154 08/23/17 0340 08/23/17 0339 08/22/17 1347 WBC -- 17.4* 12.5* -- 18.3* CREA 0.67 -- -- 0.57* 0.56* VANCOTROUGH 11.2 -- -- -- -- Imagin/25 CT: LARGE COLLECTION OF HYPOATTENUATING, LIKELY RIM ENHANCING MATERIAL WITHIN THE DELT OID MUSCLE BELLY, CONSISTENT WITH ABSCESS Date 08/22 08/23 08/24 Time of Vanco level -- -- 0400 Vancomycin level -- -- 11.2 Serum Creatinine 0.56 0.57 0.67 CrCl (mL/min) >100 >100 90 Vanco load/bolus 1000 mg - - Vanco dose - current -- 1000 mg q12hr 1000 mg q12hr Vanco dose - new 1000 mg q12hr - -- Assessment: Vancomycin Day # 2 s/p I&D Other antibiotics: zosyn Target Trough: 13-17 mcg/ml for shoulder abscess WBC: leukocytosis on admin ; Renal: wnl on admin ; Temp: afebrile on admin ; Culture: BC X: pending; Wound GPC pending sensitivitiesVS: stable Renal function: stable Dosing wt: IBW = 59.3 kg Plan: 1. Vancomycin load of 1000 mg (~17 mg/kg) IVPB x 1 given on 08/22/17 @ 1700, followed by nguyễn ntenance vancomycin 1000 mg IVPB q12h 2. Vancomycin trough ordered for 08/24/17 @ 0400 (draw 60 minutes prior to hanging the 4 dos e) - came at 11.2 3. Since trough very close to goal of 13-17, will contnue same dosing and check trough agai n (08/25-1600) before the 4th dose. 4. Serum creatinine DAILY for first 3 days, then at least every 3 days while on vancomycin. 5. Will monitor renal function, clinical status, infection markers daily with troughs and d ose adjustment as needed. References: Vancomycin dosing protocol IDSA guidelines Procalcitonin Algorithm Per P&T-approved Vancomycin Dosing and Monitoring Protocol Electronically signed by: Deepika Pérez PharmD 08/23/2017 11:04 ADDENDUM: Vancomycin trough = 11.2 Continue with current dose of 1G q12h AM Clinical pharmacist to follow up with ordering of labs as needed. Electronically signed by: Brayden Warren PharmD 08/24/2017 8:32 Annmarie Resendiz RN - 08/23/2017 10:19 PM PSTPt sat up in bed during assessment and a pack of cig arets fell out of bed on floor. Pt states she was going to try to sneak out to smoke . Pt e ducated on this being a nonsmoking environment. Pt then agreed not to smoke and pt placed ci garretes in garbage. Electronically signed by: Annmarie Blanco RN 08/23/2017 22:22 Timo Louis PharmD - 08/23/2017 8:20 PM PSTFormatting of this note might be different from the augustina suazo. PHARMACY SERVICES: ADMISSION MEDICATION REVIEW Jessica Damon is a 52 y.o. female admitted on 08/22/17. Patient is a reliable historian. Location of Patient when reviewed: ED X Medical Floor Patient s prior to admit medication and over the counter (OTC) medications/herbal supplem ents list obtained from: X Verbal interview X Patient ABLE to recall name, strength, and directions X Pharmacy list names: [facility] - [place], [place] X Outside Information Vaccines up to date? Yes No Unsure Influenza x Pneumococcal x Tdap x Shingles x Noted medications discrepancies or medication-related issues: Patient states she does not take any other prescription medication. Dosage change: Medication: Prior to Admission Sig: Correct sig: Cephalexin 500 mg cap 1 cap by mouth three times daily 1 cap by mouth three times daily for 7 days- Patient started therapy 08/18/17 Medication added: Medication: Prior to Admission Sig: Ibuprofen 200 mg tab 600 mg by mouth every 8 hours as needed for pain Recreational Substances , Tobacco & Alcohol use : Drug: Route Frequency: Last Used: Tobacco smoke 1 pack daily "2 days ago" Alcohol "couple drinks" Heroin Daily use "2 days ago" Medication review performed and electronically signed by Carly David, Mortgage Specialist 19:59 Reviewed by Timo Vaca PharmD 08/23/2017 20:20 Yonathan Ham PA-C - 08/23/2017 5:36 PM PST Name:Jessica Damon Todays Date: 08/23/2017 SUBJECTIVE: Stable. No complaints today OBJECTIVE: Wound VAC is in place of the right shoulder and appears to be working appropriately. A sma ll amount of drainage is within the canister of the wound VAC container. Did not assess ran ge of motion of the right upper extremity. Skin is warm and dry. Patient is alert and orie nted and answers questions appropriately when asked Vitals with Comments 08/23/2017 08/23/2017 08/23/2017 08/23/2017 SYSTOLIC 118 - 108 - DIASTOLIC 68 - 58 - Pulse 75 79 72 75 Temp 98.6 - 97.5 - Resp 18 18 18 Weight - - - - Height - - - - SPO2 95 94 93 95 BMI - - - - I/O last 3 completed shifts: In: 2450 [P.O.:650; I.V.:1450; IV Piggyback:350] Out: 3150 [Urine:3050; Other:100] Vitals: 08/23/17 1159 08/23/17 1245 08/23/17 1600 08/23/17 1722 BP: 118/68 108/58 Pulse: 75 79 72 75 Resp: 18 Temp: 37 C (98.6 F) 36.4 C (97.5 F) TempSrc: Oral Oral SpO2: 95% 94% 93% 95% Weight: Height: Recent Results (from the past 24 hour(s)) Culture, Wound, Smear Collection Time: 08/22/17 18:10 Result Value Ref Range Culture No growth to date Gram Stain Result 4+ White Blood Cells Gram Stain Result 4+ Gram positive cocci Gram Stain Result 2+ Gram positive bacilli Culture, Blood Collection Time: 08/22/17 20:31 Result Value Ref Range Culture No growth: Monitored continually by instrument for 5 days Culture, Blood Collection Time: 08/22/17 20:45 Result Value Ref Range Culture No growth: Monitored continually by instrument for 5 days Basic Metabolic Panel Collection Time: 08/23/17 3:39 Result Value Ref Range NA 138 136 - 149 mmol/L K 3.9 3.5 - 5.1 mmol/L CL 103 98 - 109 mmol/L CO2 29 24 - 31 mmol/L ANION GAP 6 3 - 16 mmol/L GLUCOSE 160 (H) 70 - 109 mg/dL BUN 8 7 - 18 mg/dL Creatinine, Serum/Plasma 0.57 (L) 0.60 - 1.30 mg/dL eGFR if not >60 >=60 mL/min/1.73m2 CALCIUM 9.1 8.3 - 10.5 mg/dL BUN/CREA 14.0 Drugs of Abuse, Screen, Urine Collection Time: 08/23/17 3:40 Result Value Ref Range Amphetamine Screen, Urine Positive (A) Negative Barbiturates Screen, Urine Negative Negative Benzodiazepines, Urine, Screen Positive (A) Negative Cannabinoids Screen, Urine Negative Negative Cocaine Screen, Urine Negative Negative Methadone Screen, Urine Negative Negative Opiates Screen, Urine Positive (A) Negative CBC with Differential Collection Time: 08/23/17 3:40 Result Value Ref Range WBC 12.5 (H) 4.0 - 11.0 K/uL RBC 3.92 3.70 - 5.20 M/uL Hgb 10.7 (L) 11.5 - 16.0 g/dL Hct 33.6 (L) 34.0 - 47.0 % MCV 85.7 83.0 - 101.0 fL MCH 27.4 (L) 28.0 - 35.0 pg MCHC 32.0 32.0 - 36.0 g/dL RDW-CV 13.2 <15.0 % Platelet Count 286 140 - 440 K/uL MPV 8.3 fL % Neutrophils 93.0 (H) 45.0 - 82.0 % % Lymphocytes 6.0 (L) 20.0 - 45.0 % % Monocytes 0.8 (L) 4.0 - 12.0 % % Eosinophils 0.0 0.0 - 5.0 % % Basophils 0.2 0.0 - 1.0 % Absolute Neutrophils 11.60 (H) 1.80 - 8.50 K/uL Absolute Lymphocytes 0.70 0.60 - 3.20 K/uL Absolute Monocytes 0.10 0.00 - 1.00 K/uL Absolute Eosinophils 0.00 0.00 - 0.40 K/uL Absolute Basophils 0.00 0.00 - 0.10 K/uL Magnesium Collection Time: 08/23/17 3:40 Result Value Ref Range MG 1.7 (L) 1.8 - 2.5 mg/dL Hepatic Function Panel Collection Time: 08/23/17 3:41 Result Value Ref Range BILIRUBIN TOTAL 0.3 0.1 - 1.5 mg/dL Total protein 6.9 6.0 - 7.8 g/dL ALBUMIN 2.7 (L) 3.2 - 5.0 g/dL AST 37 10 - 42 U/L ALT 31 6 - 45 U/L ALK PHOS 68 40 - 110 U/L GLOBULIN 4.2 (H) 2.1 - 3.8 g/dL Albumin/Globulin ratio 0.6 (L) 0.8 - 2.0 Bilirubin, Direct 0.10 0.00 - 0.20 mg/dl CBC no Differential Collection Time: 08/23/17 11:54 Result Value Ref Range WBC 17.4 (H) 4.0 - 11.0 K/uL RBC 3.70 3.70 - 5.20 M/uL Hgb 10.5 (L) 11.5 - 16.0 g/dL Hct 31.7 (L) 34.0 - 47.0 % MCV 85.8 83.0 - 101.0 fL MCH 28.4 28.0 - 35.0 pg MCHC 33.2 32.0 - 36.0 g/dL RDW-CV 13.2 <15.0 % Platelet Count 284 140 - 440 K/uL MPV 8.5 fL Scheduled Meds: piperacillin-tazobactam 3.375 g Intravenous 3 times per day vancomycin 1 g Intravenous Q12H vancomycin per pharmacy Other Pharmacy Consult Continuous Infusions: PRN Meds:.diphenhydrAMINE OR diphenhydrAMINE OR diphenhydrAMINE, docusate sodium, [ START ON 08/24/2017] magnesium hydroxide, melatonin, ondansetron, oxyCODONE ASSESSMENT/PLAN: 1. Right shoulder abscess A. wound VAC working appropriately today. Continue with wound VAC therapy. Waiting for c ulture and sensitivity results. Continue with current treatment plan. B. Patient is advised that if they have any questions, comments or concerns to contact our office. Electronically signed by: Yonathan Krause PA-C 08/23/2017 17:36 This note was dictated using the Swirl voice recognition system. Minor errors in grammar may have occurred aillard, Dexter Wade PharmD - 08/23/2017 11:04 AM PSTFormatting of this note might be different from the ary gijeffrey. VANCOMYCIN PER PHARMACY PROTOCOL: Subjective/Objective: Jessica Damon is a 52 y.o. female admitted on 08/22/2017 for right shoulder abscess Patien t is receiving vancomycin starting on 08/22/17 for right shoulder abscess. Patient has a pas t medical history of Hepatitis C. Allergies Sulfa antibiotics Historical Vancomycin dosing (previous & current encounter): none Admission Wt: Weight: 65.8 kg (145 lb) Current Wt: Weight: 65.8 kg (145 lb) Min/Max Temp past 24 hours:Temp Av.8 C (98.3 F) Min: 36.4 C (97.5 F) Max: 3 7 C (98.6 F) Estimated Creatinine Clearance: 90 mL/min (based on SCr of 0.67 mg/dL). Intake/Output Summary (Last 24 hours) at 08/24/17 0525 Last data filed at 08/23/176 Gross per 24 hour Intake 800 ml Output 1450 ml Net -650 ml Temp: [36.4 C (97.5 F)-37 C (98.6 F)] 37 C (98.6 F) Pulse: [66-79] 72 Resp: [16-18] 16 BP: (103-123)/(58-68) 104/61 Micro/Cultures/Diagnostics: Microbiology Results (Last 14 Days by Collected Date with Culture/Sensitivity) Procedure Component Value Units Date/Time Culture, Blood [[id number]] (Normal) Collected: 08/22/172044 Order Status: Completed Lab Status: Preliminary result Updated: 08/23/17 0851 Specimen: Blood from Peripheral Blood Culture No growth: Monitored continually by instrument for 5 days Culture, Blood [[id number]] (Normal) Collected: 08/22/172030 Order Status: Completed Lab Status: Preliminary result Updated: 08/23/17 0851 Specimen: Blood from Line Culture No growth: Monitored continually by instrument for 5 days Culture, Wound, Smear, w/Anaerobe [[id number]] Collected: 08/22/171809 Order Status: Sent Lab Status: In process Updated: 08/22/171809 Specimen: Wound from Arm Narrative: The following orders were created for panel order Culture, Wound, Smear, w/Anaerobe. Procedure Abnormality Status --------- ------ Culture, Wound, Smear[[id number]] Preliminary result Culture, Anaerobic[[id number]] In process Please view results for these tests on the individual orders. Culture, Wound, Smear [[id number]] Collected: 08/22/171809 Order Status: Completed Lab Status: Preliminary result Updated: 08/23/17 0847 Specimen: Wound from Arm Culture No growth to date Gram Stain Result 4+ White Blood Cells 4+ Gram positive cocci 2+ Gram positive bacilli Culture, Anaerobic [[id number]] Collected: 08/22/171809 Order Status: Resulted Lab Status: In process Updated: 08/22/171809 Specimen: Wound from Arm UA: none Recent Labs Lab 08/24/17 0408 08/23/17 1154 08/23/17 0340 08/23/17 0339 08/22/17 1347 WBC -- 17.4* 12.5* -- 18.3* CREA 0.67 -- -- 0.57* 0.56* VANCOTROUGH 11.2 -- -- -- -- Imagin/25 CT: LARGE COLLECTION OF HYPOATTENUATING, LIKELY RIM ENHANCING MATERIAL WITHIN THE DELT OID MUSCLE BELLY, CONSISTENT WITH ABSCESS Date 08/22 08/23 08/24 Time of Vanco level -- -- 0400 Vancomycin level -- -- 11.2 Serum Creatinine 0.56 0.57 0.67 CrCl (mL/min) >100 >100 90 Vanco load/bolus 1000 mg - - Vanco dose - current -- 1000 mg q12hr 1000 mg q12hr Vanco dose - new 1000 mg q12hr - -- Assessment: Vancomycin Day # 2 s/p I&D Other antibiotics: zosyn Target Trough: 13-17 mcg/ml for shoulder abscess WBC: leukocytosis on admin ; Renal: wnl on admin ; Temp: afebrile on admin ; Culture: BC X: pending; VS: stable Renal function: stable Dosing wt: IBW = 59.3 kg Plan: 1. Vancomycin load of 1000 mg (~17 mg/kg) IVPB x 1 given on 08/22/17 @ 1700, followed by nguyễn ntenance vancomycin 1000 mg IVPB q12h 2. Vancomycin trough ordered for 08/24/17 @ 0400 (draw 60 minutes prior to hanging the 4 dos e) 3. Serum creatinine DAILY for first 3 days, then at least every 3 days while on vancomycin. 4. Will monitor renal function, clinical status, infection markers daily with troughs and d ose adjustment as needed. References: Vancomycin dosing protocol IDSA guidelines Procalcitonin Algorithm Per P&T-approved Vancomycin Dosing and Monitoring Protocol Electronically signed by: Deepika Pérez PharmD 08/23/2017 11:04 ADDENDUM: Vancomycin trough = 11.2 Continue with current dose of 1G q12h AM Clinical pharmacist to follow up with ordering of labs as needed. Electronically signed by: Leora Mcginnis PharmD 08/24/2017 5:25 Annmarie Bravo RN - 08/22/2017 10:29 PM PSTWound vac not functioning since arrival to floor from [facility]. Luis A rn in [facility] states the wound vac has been alarming since arrival to [facility].vac alar urvashi blockage, new pump and tubing and cannister changed. Vac still alarming. Dr. Ayala called and came in and Dr. Ayala changed wound vac d ressing and set wound vac pump on 100 suction continuous. Now vac functioning with serosangu inous drainage in cannister. Electronically signed by: Annmarie Blanco RN 08/22/2017 22:33 imDeepika , PharmD - 08/22/2017 4:12 PM PSTFormatting of this note might be different from the origin al. VANCOMYCIN PER PHARMACY PROTOCOL: Subjective/Objective: Jessica Damon is a 52 y.o. female admitted on 08/22/2017 for right shoulder abscess Patien t is receiving vancomycin starting on 08/22/17 for right shoulder abscess. Patient has a pas t medical history of Hepatitis C. Allergies Sulfa antibiotics Historical Vancomycin dosing (previous & current encounter): none Admission Wt: Weight: 65.8 kg (145 lb) Current Wt: Weight: 65.8 kg (145 lb) Min/Max Temp past 24 hours:Temp Av.6 C (97.8 F) Min: 36.6 C (97.8 F) Max: 3 6.6 C (97.8 F) Estimated Creatinine Clearance: 108 mL/min (based on SCr of 0.56 mg/dL (L)). No intake or output data in the 24 hours ending 08/22/17 1612 Temp: [36.6 C (97.8 F)] 36.6 C (97.8 F) Pulse: [81-88] 81 Resp: [20] 20 BP: (108-120)/(57-76) 120/76 Micro/Cultures/Diagnostics: Microbiology Results (Last 14 Days by Collected Date with Culture/Sensitivity) Procedure Component Value Units Date/Time Culture, Blood [[id number]] Order Status: Sent Lab Status: No result Specimen: Blood from Line Culture, Blood [[id number]] Order Status: Sent Lab Status: No result Specimen: Blood from Peripheral Blood UA: none Recent Labs Lab 08/22/17 1347 WBC 18.3* CREA 0.56* Imagin/25 CT: LARGE COLLECTION OF HYPOATTENUATING, LIKELY RIM ENHANCING MATERIAL WITHIN THE DELT OID MUSCLE BELLY, CONSISTENT WITH ABSCESS Date 08/22 08/23 08/24 Time of Vanco level -- -- 0400 Vancomycin level -- -- ?? Serum Creatinine 0.56 CrCl (mL/min) >100 Vanco load/bolus 1000 mg Vanco dose - current -- 1000 mg q12hr 1000 mg q12hr Vanco dose - new 1000 mg q12hr - ?? Assessment: Vancomycin Day # 1 Other antibiotics: zosyn Target Trough: 13-17 mcg/ml for shoulder abscess WBC: leukocytosis on admin ; Renal: wnl on admin ; Temp: afebrile on admin ; Culture: BC X: pending; VS: stable Renal function: stable Dosing wt: IBW = 59.3 kg Plan: 1. Vancomycin load of 1000 mg (~17 mg/kg) IVPB x 1 given on 08/22/17 @ 1700, followed by nguyễn pat vancomycin 1000 mg IVPB q12h 2. Vancomycin trough ordered for 08/24/17 @ 0400 (draw 60 minutes prior to hanging the 4 dos e) 3. Serum creatinine DAILY for first 3 days, then at least every 3 days while on vancomycin. 4. Will monitor renal function, clinical status, infection markers daily with troughs and d ose adjustment as needed. References: Vancomycin dosing protocol IDSA guidelines Procalcitonin Algorithm Per P&T-approved Vancomycin Dosing and Monitoring Protocol Electronically signed by: Deepika Pérez PharmD 08/22/2017 16:12 documented in this encounter H&P Notes Micha Ayala MD - 08/22/2017 3:15 PM PSTFormatting of this note might be differen t from the original. History of present illness: Jessica is a 52 y.o. female who noted some swelling and pain in h er right lateral shoulder after "skin popping" heroin approximately 5-6 days ago. She was s een in the ER in [place], [place] on 08/18/17 and received a prescription for Keflex 500 mg qid which she began to take. Unfortunately, she noted increasing pain and redness over the pas t 36 hours and now has come to [facility] for evaluation and care. She last had a meal last but had coffee and a small sweet candy at 10 AM today. Past Medical History: Diagnosis Date Hepatitis C Past Surgical History: Procedure Laterality Date DILATION AND CURETTAGE OF UTERUS TONSILLECTOMY AND ADENOIDECTOMY Allergies Allergen Reactions Sulfa Antibiotics Other (See Comments) "lip swelling" No current facility-administered medications on file prior to encounter. No current outpatient prescriptions on file prior to encounter. No family history on file. Social History Social History Marital status: Spouse name: N/A Number of children: N/A Years of education: N/A Occupational History Not on file. Social History Main Topics Smoking status: Current Every Day Smoker Packs/day: 1.00 Types: Cigarettes Smokeless tobacco: Not on file Alcohol use Yes Comment: rarely Drug use: Yes Types: Marijuana Sexual activity: Not on file Other Topics Concern Not on file Social History Narrative No narrative on file Review of Systems Eyes: [] Double vision [] Glasses/contacts [] Failing vision Ear/Nose/Throat: [] Frequent Colds [] Sinus Disease [] Nose obstruction [] Sneezing Spells [] Change in taste [] Artificial teeth [] Ears ringing [] Ear pain [] Hearing loss [] Teeth problems [] Hoarseness [] Neck swelling [] Sore throat [] Congestion [] Nosebleeds [] Nasal allergies Respiratory: [] Asthma/Wheezing [] Pneumonia [] Night sweats [] Shortness of breath [] Chronic cough [] Coughing up blood [] Exposure to tuberculosis Cardiovascular: [] Heart Problems [] Hypertension [] Heart murmur [] Palpitations [] Rheumatic fever [] Phlebitis [] Chest pain [] Ankle swelling [] Leg cramps [] Racin g heart [] Skipping beats [] Blood clots Gastrointestinal: [] Abdominal pain [] Heartburn [] Blood from rectum [] Colitis [] Gallbladder problems [] Troubl e swallowing [] Bloated stomach [] Change in stools [] Vomiting blood [] Nausea [] Hemorrhoids [] Jaundice [ ] Hepatitis [] Diarrhea [] Constipation [] Diverticulitis Urinary Tract: [] Painful urination [] Kidney Stones [] Any urine leakage [] Weak urine stream [] Night urination [] Urine infections [] Bedwetting [] Blood in urine Skin: [] Skin rashes [] Itching/Burning [] Skin bruises easil y [] Artificial tanning [] Skin cancer [] Hair loss [] Changes in moles Musculoskeletal: [] Physical handicaps [] Back or shoulder pain []Rheumatoid disease [] Osteoarthritis [] Joint pain [] Joint swelling []Gout [] Leg cramps at night Neurological: [] Headaches [] Seizures [] Stroke/TIA [] Faintness [] Tremors [] Numbness [] Dizziness [] Changes in handwriting [] Memory loss [] Shooting pains Psychiatric: [] Depression [] Suicidal thoughts [] Sleep pattern changes [] Appetite changes [] Recent counseling [] Nervousness/anxiety [] Physical violence [] Marital problems Endocrine: [] Thyroid [] Diabetes Systemic: []Weight loss/gain (over 10 lbs) []Fever/chills []Fatigue [] Sleeping Difficulties [] Speech change [] Voice change Vitals: 08/22/17 1442 BP: Pulse: 81 Resp: Temp: Estimated body mass index is 23.4 kg/m as calculated from the following: Height as of this encounter: 1.676 m (5' 6"). Weight as of this encounter: 65.8 kg (145 lb). Physical examination:Patient is alert and oriented and in no acute distress. Inspection reveals: Skin is warm dry and intact with no gross deformity. Head: Oral pharnyx nonerythematous nonedematous no exudate noted Neck: Supple nontender without any lymphadenopathy. Heart: Regular rate and rhythm. Lungs: Clear to auscultation. Abdomen: Soft nontender no masses organomegaly. Cranial nerves 2-12 grossly intact. Musculoskeletal: The lateral right shoulder is obviously swollen, tender, and erythematous . Right shoulder motion is restricted. NV function is intact to the right hand. CT scan of the right shoulder from today shows a large extra-muscular and intra-muscular ab cess in the region of the right deltoid muscle. Assessment: Right shoulder abcess secondary to skin popping. Plan: The patient is scheduled for a right shoulder incision and drainage and wound vac on 08/22/17. Therefore, the planned procedure with its risks, possible complications, expected prognosis, and treatment alternatives was discussed with the patient. Risks and possible co mplications were listed but not limited to infection, nerve and vessel damage, bleeding, yevgeniy n, scarring, stiffness, residual symptoms remaining after surgery, and the risk of anesthesi a including . No guarantees were given or implied other than that of diligent effort. documented in th is encounter Consult Notes Norman Alfaro MD - 08/22/2017 4:03 PM PSTFormatting of this note might be different fr om the original. [place], [place] HOSPITALIST CONSULT NOTE Patient: Jessica Damon : 1965: Age: 52 y.o. MedRec: [id number] Admission date: 08/22/2017 Hospital day # : 0 Physician author: Norman Alfaro MD Today: 08/22/2017 Provider requesting consult: Dr. Hernandez Reason for consult: Antibiotic Management HISTORY OF PRESENT ILLNESS: This is a 52 y.o. female with a history of polysubstance abuse, Hepatitis C who presents fo r right shoulder pain. Patient reports injecting heroin in the deltoid 1.5 weeks ago. Patien t initially had small induration with erythema. (+) subjective fevers/chills. (+) tenderness . Patient went to a clinic on the 08/15 and started on keflex 500mg TID. Patient reports comp liance with the medication. The deltoid area worsened with pain/erythema. No discharge. Loraine ent reports mild cases of cellulitis in the past. PAST MEDICAL and SURGICAL HISTORY: Past Medical History: Diagnosis Date Hepatitis C Past Surgical History: Procedure Laterality Date DILATION AND CURETTAGE OF UTERUS TONSILLECTOMY AND ADENOIDECTOMY FAMILY HISTORY: Denies history of hepatitis C. SOCIAL HISTORY: reports that she has been smoking Cigarettes. She has been smoking about 1.00 pack per da y. She does not have any smokeless tobacco history on file. She reports that she drinks alco hol. She reports that she uses drugs, including Marijuana. HOME MEDICATIONS: PT REPORTED TAKING NOT TAKING Medication Sig Last Dose Dispense Doc. Provider cephalexin (KEFLEX) 500 mg capsule Take 500 mg by mouth 3 times daily. Historical Provid er, ALLERGIES: Allergies Allergen Reactions Sulfa Antibiotics Other (See Comments) "lip swelling" CURRENT MEDICATIONS: Current Facility-Administered Medications Medication Dose Route Frequency Provider Last Rate Last Dose piperacillin-tazobactam (ZOSYN) 3.375 g in sodium chloride 0.9% 100 mL IVPB 3.375 g In travenous 3 times per day Norman Alfaro MD [SEP Hold] vancomycin 1 g in sodium chloride 0.9% 250 mL IVPB 1 g Intravenous Once Amina Rosales PharmD [SEP Hold] vancomycin per pharmacy Other Pharmacy Consult Madisyn Ya MD REVIEW OF SYSTEMS: All remaining ROS is negative except for HPI. Most recent weight: Wt Readings from Last 1 Encounters: 08/22/17 65.8 kg (145 lb) Input and output for last 24hrs: No intake/output data recorded. Vitals Ranges: Temp: [36.6 C (97.8 F)] 36.6 C (97.8 F) Pulse: [81-88] 81 Resp: [20] 20 BP: (108-120)/(57-76) 120/76 Vitals: Temp: 36.6 C (97.8 F) BP: 120/76 Pulse: 81 Resp: 20 SpO2: 99 % SpO2 99 % on room air at flow rate L/min PHYSICAL EXAMINATION: Constitutional NAD Eye No conjunctivitis nor scleral icterus ENT Unremarkable oral ear and nose Neck No adenopathy, thyromegaly nor masses Lymph node exam Negative in the following areas: neck and epitrochlear Cardiac S1, S2 present, no murmurs Lung CTA throughout Abdomen + BS, Soft, NT, no HSM nor masses Extremities R deltoid erythema, induration, (+) warmth Psych Mood and affect normal Neuro No focal deficit DIAGNOSTIC STUDIES: Point of care glucose No results for input(s): POCGLU in the last 168 hours. Lab results last 24 hours Recent Results (from the past 24 hour(s)) CBC with Differential Collection Time: 08/22/17 13:47 Result Value Ref Range WBC 18.3 (H) 4.0 - 11.0 K/uL RBC 4.00 3.70 - 5.20 M/uL Hgb 11.4 (L) 11.5 - 16.0 g/dL Hct 34.1 34.0 - 47.0 % MCV 85.3 83.0 - 101.0 fL MCH 28.4 28.0 - 35.0 pg MCHC 33.4 32.0 - 36.0 g/dL RDW-CV 13.2 <15.0 % Platelet Count 290 140 - 440 K/uL MPV 8.2 fL % Neutrophils 73.6 45.0 - 82.0 % % Lymphocytes 14.8 (L) 20.0 - 45.0 % % Monocytes 7.3 4.0 - 12.0 % % Eosinophils 3.3 0.0 - 5.0 % % Basophils 1.0 0.0 - 1.0 % Absolute Neutrophils 13.40 (H) 1.80 - 8.50 K/uL Absolute Lymphocytes 2.70 0.60 - 3.20 K/uL Absolute Monocytes 1.30 (H) 0.00 - 1.00 K/uL Absolute Eosinophils 0.60 (H) 0.00 - 0.40 K/uL Absolute Basophils 0.20 (H) 0.00 - 0.10 K/uL Basic Metabolic Panel Collection Time: 08/22/17 13:47 Result Value Ref Range NA 136 136 - 149 mmol/L K 4.1 3.5 - 5.1 mmol/L CL 103 98 - 109 mmol/L CO2 24 24 - 31 mmol/L ANION GAP 9 3 - 16 mmol/L GLUCOSE 78 70 - 109 mg/dL BUN 7 7 - 18 mg/dL Creatinine, Serum/Plasma 0.56 (L) 0.60 - 1.30 mg/dL eGFR if not >60 >=60 mL/min/1.73m2 CALCIUM 9.2 8.3 - 10.5 mg/dL BUN/CREA 12.5 CK Total Collection Time: 08/22/17 13:47 Result Value Ref Range CK TOTAL 49 22 - 269 U/L Micro results Microbiology Results (72 hrs) No results found for the last [address] Upper Extremity W Contrast Right Result Date: 08/22/[address] RIGHT UPPER EXTREMITY 08/22/2017 2:08 PM CLINICAL HISTORY: large area of swelli ng anterior right shoulder COMPARISON: None available TECHNIQUE: Axial images are perfo rmed through the right upper arm following the uneventful intravenous administration of 85 m L Omnipaque-350 contrast. Multiplanar reformations are also performed. FINDINGS: There is a large, likely rim enhancing, but fairly thin-walled collection of homogeneously hypoattenu ating material within the right deltoid muscle, extending from the level of the greater tube rosity of the humerus inferiorly to the mid diaphyseal level, and measuring up to 12.2 x 4.4 x 6.5 cm in size. There is some internal septation within the mid to superior aspects of t he collection. No internal gas or foreign body is evident. Stranding of the overlying subc utaneous fat is present. The musculature is unremarkable elsewhere. No associated osseous abnormality is visible. The glenohumeral joint is maintained, demonstrating early marginal osteophyte formation inferiorly. There is mild to moderate capsular and osseous hypertrophy about the acromioclavicular joint, which is normally aligned. Emphysematous changes are pr esent in the imaged right lung, along with bronchial wall thickening. Mildly prominent lymph nodes are scattered throughout the right axilla and supraclavicular region. The imaged vas culature is widely patent. IMPRESSION - 1. LARGE COLLECTION OF HYPOATTENUATING, LIKELY RIM ENHANCING MATERIAL WITHIN THE DELTOID MUSCLE BELLY, CONSISTENT WITH ABSCESS. NO ASSOCIATED OSSEOUS ABNORMALITY IS VISIBLE. MILDLY PROMINENT AXILLARY AND SUPRACLAVICULAR LYMPH NODES ARE LIKELY REACTIVE. 2. EMPHYSEMA AND PROBABLE INFECTIOUS OR INFLAMMATORY BRONCHIAL WALL TH ICKENING. 3. ACROMIOCLAVICULAR AND GLENOHUMERAL JOINT ARTHROSIS. Images were provided for i nterpretation on August 22, 2017 at 1410 hours. Results were finalized at 1430 hours. Dicta lynnette and Signed by: Dangelo Fritz MD Electronically signed: 08/22/2017 2:27 PM ASSESSMENT: Active Hospital Problems Diagnosis Abscess of deltoid region Substance abuse Resolved Hospital Problems Diagnosis No resolved problems to display. PLAN: R deltoid erythema 2/2 to soft tissue infection/abscess Patient presented with R deltoid erythema/pain. Vitals stable. WBC 18.3. CT R upper extremi ty showed large collection of hypoattenuating, likely rim enhancing material within the delt oid muscle belly. Patient reports history of injecting heroin into the muscle. -Start vancomycin/Zosyn -Primary service, orthopedics will perform I/D in [place] -Blood cultures ordered -Will await wound cultures to narrow abx Substance abuse (heroin) -Ordered urine drug screen -When close to discharge rec CM to speak to patient for support information Hepatitis C Patient denies history of liver complications/cirrhosis -Order LFTs, hepatitis panel -Follow up outpatient setting Remainder as per the primary team Thank you very much for consulting us in the care of your patient. We will continue to fol low along. I reviewed and summarized old records I reviewed imaging Electronically signed by: Norman Alfaro MD 08/22/2017 16:06 [facility] Portions of this chart may have been created with Swirl voice recognition software. Occasi onal wrong-word or sound-alike substitutions may have occurred due to the inherent galdamez itations of voice recognition software. Please read the chart carefully and recognize, using context, where these substitutions have occurred documented in this encounter Nursing Notes Sonia Tolliver RN - 08/26/2017 6:18 PM PSTPt tolerating Po. Voided on bedpan while in PACU. Calling RN on floor to give report. Sonia Paz RN - 08/26/2017 6:00 PM PSTPt ready to transfer to floor. Floor called, LINH Bojorquez not available. Will call back in 10-15 minutes. Electro nically signed by Sonia Tolliver RN at 08/26/2017 6:01 PM Bouchra Randle RN - 07/30 5:56 PM PSTVerbal handoff given to sonia gamez.airway patent on [email or web address].vss.nad or sob noted.goldstein well.dressing c/d/i. Drain intact. All findings reviewed at bedside documented in this encounter ED Notes Madisyn Ya MD - 08/22/2017 11:08 AM PSTFormatting of this note might be diffe rent from the original. [facility] Jessica Damon Emergency Department Encounter Note [address] [place] [id number] PCP:No Physician on file [phone] CHIEF COMPLAINT: Chief Complaint Patient presents with Wound Infection (Complicated) ED Room: ED12/ED12 HPI Jessica Damon is a 52 y.o. female who presents to the Emergency Department with right should er and arm pain. Patient reports that she has been injecting B12 from a friend into her rig ht shoulder, notes that she has had erythema, with progressively worsening swelling over the past 5 days. She was started on Keflex, without improvement in her symptoms. She denies f ever, nausea, vomiting, pain with shoulder movement. Reports significant pain with palpatio n of the right shoulder. Per nursing note: "Patient presents with an inflamed and swollen right shoulder is probably due to her recent injections of b12 that she was giving herself and was using same needle PAST MEDICAL & SURGICAL HISTORY No past medical history on file. No past surgical history on file. CURRENT MEDICATIONS Previous Medications CEPHALEXIN (KEFLEX) 500 MG CAPSULE Take 500 mg by mouth 3 times daily. ALLERGIES Allergies Allergen Reactions Sulfa Antibiotics Other (See Comments) "lip swelling" FAMILY AND SOCIAL HISTORY No family history on file. Social History Social History Marital status: Spouse name: N/A Number of children: N/A Years of education: N/A Social History Main Topics Smoking status: Current Every Day Smoker Packs/day: 1.00 Types: Cigarettes Smokeless tobacco: Not on file Alcohol use Yes Comment: rarely Drug use: Yes Types: Marijuana Sexual activity: Not on file Other Topics Concern Not on file Social History Narrative No narrative on file REVIEW OF SYSTEMS As in history of present illness. A full review of systems was otherwise negative. PHYSICAL EXAM VITAL SIGNS: (first vital signs):Temp: 36.6 C (97.8 F) Pulse: 88 Resp: 20 SpO2: 99 % BP : 108/57 Body mass index is 23.4 kg/m. Constitutional: female patient, No acute distress, resting in seated position in bed. HEENT: AT/NC, PERRLA, EOMI, MMM Neck: fROM, no meningismus noted CV: RRR, no m/r/g/ noted Pulm: CTA-b, no w/r/c, no respiratory distress Ext: wwp, large area of swelling overlying the anterior right shoulder, firm. Covers anter ior and middle head of the deltoid, radiating superiorly to lateral clavicular region. Neuro: No focal neurologic deficits Skin: no rashes or petichiae noted Psych: normal mood and affect EKG None LABS Results for orders placed or performed during the hospital encounter of 08/22/17 CBC with Differential Result Value Ref Range WBC 18.3 (H) 4.0 - 11.0 K/uL RBC 4.00 3.70 - 5.20 M/uL Hgb 11.4 (L) 11.5 - 16.0 g/dL Hct 34.1 34.0 - 47.0 % MCV 85.3 83.0 - 101.0 fL MCH 28.4 28.0 - 35.0 pg MCHC 33.4 32.0 - 36.0 g/dL RDW-CV 13.2 <15.0 % Platelet Count 290 140 - 440 K/uL MPV 8.2 fL % Neutrophils 73.6 45.0 - 82.0 % % Lymphocytes 14.8 (L) 20.0 - 45.0 % % Monocytes 7.3 4.0 - 12.0 % % Eosinophils 3.3 0.0 - 5.0 % % Basophils 1.0 0.0 - 1.0 % Absolute Neutrophils 13.40 (H) 1.80 - 8.50 K/uL Absolute Lymphocytes 2.70 0.60 - 3.20 K/uL Absolute Monocytes 1.30 (H) 0.00 - 1.00 K/uL Absolute Eosinophils 0.60 (H) 0.00 - 0.40 K/uL Absolute Basophils 0.20 (H) 0.00 - 0.10 K/uL Basic Metabolic Panel Result Value Ref Range NA 136 136 - 149 mmol/L K 4.1 3.5 - 5.1 mmol/L CL 103 98 - 109 mmol/L CO2 24 24 - 31 mmol/L ANION GAP 9 3 - 16 mmol/L GLUCOSE 78 70 - 109 mg/dL BUN 7 7 - 18 mg/dL Creatinine, Serum/Plasma 0.56 (L) 0.60 - 1.30 mg/dL eGFR if not >60 >=60 mL/min/1.73m2 CALCIUM 9.2 8.3 - 10.5 mg/dL BUN/CREA 12.5 CK Total Result Value Ref Range CK TOTAL 49 22 - 269 U/L IMAGING STUDIES (X-Rays interpreted by ED Physician) No results found for this or any previous visit (from the past 360 hour(s)). Large loculated abscess in right deltoid. Final read pending. ED COURSE & MEDICAL DECISION MAKING Pertinent Labs & Imaging studies were reviewed along with EMS notes and longterm record s if applicable. (See chart for details) Medications and Allergy list reviewed. Nurses note and old records were reviewed Patient is a 52-year-old female, history of IV drug use, who presents with a right deltoid abscess after self-reported B-12 injections. Very difficult for IV access, however axis compa lexy, labs obtained demonstrating a leukocytosis. Large, firm region that is difficult to de lineate. Obtained a CT with IV contrast of the right upper extremity which demonstrated a v true large abscess near vasculature. Unlikely to be able to I&D appropriately at a bedside s etting. Discussed with Dr. Ayala of orthopedic surgery who will evaluate the patient at bedside and likely take to OR for washout. Patient given IV vancomycin and zosyn. Patient si gned out to Dr. Perrin in the emergency department. Last Set of Vital Signs: Temp: 36.6 C (97.8 F) Pulse: 88 Resp: 20 SpO2: 99 % BP: 108/57 FINAL IMPRESSION ICD-10-CM ICD-9-CM 1. Abscess of deltoid region L02.419 682.3 Madisyn Ya MD 08/22/17 1429 ox, Baltazar Al RN - 08/22/2017 11:02 AM PSTPatient presents with an inflamed and swollen right shoulder is probably due to her recent injections of b12 that she was giving herself and was using sa me needle documented in this encounter Miscellaneous Notes Plan of Care - Gary Velasquez RN - 08/28/2017 10:55 AM PSTProblem: Patient Care Overview (Adult) Goal: Care Team Goals & Evaluation PROBLEM-RELATED GOALS: Pt will void spontaneously by 08/28/17 Jessica will meet 75% of predicted incentive spirometer goal of 2400ml by 08/28/2017. Pt will have adequate pain management 08/27/17 Patient will have no injuries or falls by 08/29/2017 STRATEGY TO ACHIEVE GOALS: 2. Monitor I and O 3. Instruct patient how use of Incentive Spirometry and deep breath and cough. Nursing and Respiratory to work together to have patient use every hour while awake. Respiratory to mo nitor progress 4 times daily until 75% goal met then turn over to nursing. 4. Patient is educated how to get out of bed and to calls for assistance properly. Assess for pain use non pharmacological and pharmacological interventions as needed RESTRAINT-RELATED GOALS: STRATEGIES TO ACHIEVE RESTRAINT GOALS: Outcome: Adequate for Discharge Date Met: 08/28/17 Goal Evaluation: Pt c/o pain to right arm after MD removed GEOFFREY denis, medicated with PO Oxycodone PRN. Indep endent in the room with ambulation. Dressing to right upper arm c/d/i. Pt denies nausea, shira erating a regular diet well. Voiding on her own with no difficulty. PICC line to left upper arm removed per MD orders, pressure was held for 10 min, no s/s of bleeding noted. Pt will go home today. lan of [facility] - Radha Rodriguez RN - 08/28/2017 10:22 AM PSTDischarge Planning: Discharge order obtained. Per provider Ryland, would like patient seen in one week wit Dr. Ayala. CM contacted Dr. Ayala's office and obtained appointment for 09/03/17 at 1145. CM added to follow up in EPIC to show on patient's discharge paperwork. In addition , CM to patient room to discuss follow up. Patient informed of date/time for follow up with Dr. Ayala. Patient agreeable and denies any additional questions, complaints, or anuj rns regarding anticipated plan to discharge home today. Disposition: Home, no needs. Electronically signed by: Radha George RN 08/28/2017 10:24 lan of [facility] - Chelita Nelson RN - 08/28/2017 4:12 AM PSTProblem: Patient Care Overview (Adult) Goal: Care Team Goals & Evaluation PROBLEM-RELATED GOALS: Pt will void spontaneously by 08/28/17 Jessica will meet 75% of predicted incentive spirometer goal of 2400ml by 08/28/2017. Pt will have adequate pain management 08/27/17 Patient will have no injuries or falls by 08/29/2017 STRATEGY TO ACHIEVE GOALS: 2. Monitor I and O 3. Instruct patient how use of Incentive Spirometry and deep breath and cough. Nursing and Respiratory to work together to have patient use every hour while awake. Respiratory to mo nitor progress 4 times daily until 75% goal met then turn over to nursing. 4. Patient is educated how to get out of bed and to calls for assistance properly. Assess for pain use non pharmacological and pharmacological interventions as needed RESTRAINT-RELATED GOALS: STRATEGIES TO ACHIEVE RESTRAINT GOALS: Outcome: Improving Goal Evaluation: Patient A/O. VSS. Heart regular. Lungs are clear. GEOFFREY to right arm (deltoid) , dressing is CDI. Draining sanguinous fluids. CMS is intact. Denies numbness and tingling. Pain has bee n managed with oxycodone 20 mg PRN. Urinating well to the bedside commode. Last bowel moveme nt was 08/26/2017. Patient had no injuries or falls during this shift. Patient is on general diet, tolerating well. lan of Jake Farnsworth RN - 08/27/2017 6:13 PM PSTProblem: Patient Care Overview (Adult) Goal: Care Team Goals & Evaluation PROBLEM-RELATED GOALS: Pt will void spontaneously by 08/28/17 Jessica will meet 75% of predicted incentive spirometer goal of 2400ml by 08/28/2017. Pt will have adequate pain management 08/27/17 Patient will have no injuries or falls by 08/29/2017 STRATEGY TO ACHIEVE GOALS: 2. Monitor I and O 3. Instruct patient how use of Incentive Spirometry and deep breath and cough. Nursing and Respiratory to work together to have patient use every hour while awake. Respiratory to mo nitor progress 4 times daily until 75% goal met then turn over to nursing. 4. Patient is educated how to get out of bed and to calls for assistance properly. Assess for pain use non pharmacological and pharmacological interventions as needed RESTRAINT-RELATED GOALS: STRATEGIES TO ACHIEVE RESTRAINT GOALS: Outcome: Improving Goal Evaluation: Pt is alert and oriented x4 and reports pain at 4/10 that has been well controlled with 20 mg oxycodone PRN. Pt is independent to ambulate in room and hallways. Pt lungs are clear and equal bilaterally. Pt is voiding spontaneously and without difficulty. Bowel tones are manuel ble and active in all quadrants. Last BM: 08/24/17. Pt calls appropriately for assistance and remains free of falls. Pt has been pleasant, calm, and cooperative throughout shift. lan of Chelita Higginbotham RN - 08/27/2017 4:28 AM PSTProblem: Patient Care Overview (Adult) Goal: Care Team Goals & Evaluation PROBLEM-RELATED GOALS: Pt will void spontaneously by 08/28/17 Jessica will meet 75% of predicted incentive spirometer goal of 2400ml by 08/28/2017. Pt will have adequate pain management 08/27/17 Patient will have no injuries or falls by 08/29/2017 STRATEGY TO ACHIEVE GOALS: 2. Monitor I and O 3. Instruct patient how use of Incentive Spirometry and deep breath and cough. Nursing and Respiratory to work together to have patient use every hour while awake. Respiratory to mo nitor progress 4 times daily until 75% goal met then turn over to nursing. 4. Patient is educated how to get out of bed and to calls for assistance properly. Assess for pain use non pharmacological and pharmacological interventions as needed RESTRAINT-RELATED GOALS: STRATEGIES TO ACHIEVE RESTRAINT GOALS: Outcome: Improving Goal Evaluation: Patient alert and oriented. VSS. Heart regular. Lungs are clear. GEOFFREY to right arm (deltoid) , dressing is CDI. Draining sanguinous fluids. CMS is intact. Denies numbness and tinglin g. Pain has been managed with oxycodone 20 mg PRN. Urinating well to the bedside commode. La st bowel movement was 08/24/2017. Patient had no injuries or falls during this shift. Patient is on general diet, tolerating well. lan [facility] , Valencia Millard RN - 08/26/2017 4:47 PM PSTProblem: Patient Care Overview (Adult) Goal: Care Team Goals & Evaluation PROBLEM-RELATED GOALS: Pt will void spontaneously by 08/26/17 Jessica will meet 75% of predicted incentive spirometer goal of 2400ml by 08/26/2017. Pt will have adequate pain management 08/27/17 STRATEGY TO ACHIEVE GOALS: 2. Monitor I and O 3. Instruct patient how use of Incentive Spirometry and deep breath and cough. Nursing and Respiratory to work together to have patient use every hour while awake. Respiratory to mo nitor progress 4 times daily until 75% goal met then turn over to nursing. Assess for pain use non pharmacological and pharmacological interventions as needed RESTRAINT-RELATED GOALS: STRATEGIES TO ACHIEVE RESTRAINT GOALS: Goal Evaluation: Jessica's pain was managed with Q3 oxycodone. Pts. Heart rate was regular, lungs were clear bilaterally.Pt. Was NPO since midnight. Pt. Underwent a surgical procedure to remove the wou nd vac. on right shoulder and to close the wound. VS were stable before pt went down to OR suite. Awaiting for pt return. p Note - Darryl ta, Micha Suazo MD - 08/26/2017 4:42 PM PST [address] [address] OPERATIVE REPORT MICHA AYALA MD Patient: JESSICA DAMON Admitting: MICHA Suazo JAMIE MR #: [id number] LOC: PT TYPE: Adm Date: 08/22/2017 : 1965 DATE OF SURGERY AND DATE OF DICTATION: 08/26/2017 OPERATING SURGEON: Micha Ayala MD ENVIRONMENTAL SUSTAINABILITY MANAGER: TITO Maldonado. ANESTHESIOLOGIST: Lam Granados MD PREOPERATIVE DIAGNOSIS: Right shoulder intradeltoid and subdeltoid abscess secondary to skin popping. POSTOPERATIVE DIAGNOSIS: Right shoulder intradeltoid and subdeltoid abscess secondary to skin popping. TITLE OF OPERATION: Irrigation, debridement and removal of wound VAC with closure over a #15 round drain. HISTORY AND REASON FOR SURGERY: Jessica Damon is a 52-year-old female who is a known IV drug addict. She has run out of peripheral veins and therefore has been skin popping with heroin. She developed some redness in her right shoulder and was seen in the emergency room at [place], [place], where she was given a prescription for Keflex. In spite of this, she noted increasing pain and redness and ultimately was brought to the emergency room at [facility] where she was found to have a large right shoulder intradeltoid and subdeltoid abscess under pressure. She therefore was subsequently taken to surgery on 08/22/2017 at which time the abscess was incised and drained and a wound VAC was placed. She has been treated appropriately with IV antibiotics and ongoing use of a wound VAC. She was found to have streptococcus and has been placed on ceftriaxone as an appropriate medicine for this infection. Her right shoulder has gradually decreased in redness and inflammation and she now is felt to be ready for removal of the wound VAC, irrigation, debridement and possible closure over a drain. Therefore, the planned procedure with its risks plus complications, expected prognosis and treatment alternatives was discussed with the patient. Risks and possible complications were listed, but not limited to, infection, nerve and vessel damage, bleeding, pain, scarring, stiffness, possibility of residual symptoms remaining after surgery and the risk of anesthesia. She verbalized understanding. No guarantees were given or implied other than that of diligent effort. OPERATIVE PROCEDURE: After the patient signed the consent for surgery, she was brought to the operating room where she underwent general anesthesia successfully. She was carefully placed in the beach chair position, used a donut for her head and a folded towel under her right shoulder. The entire right upper extremity was prepped with alcohol and DuraPrep and draped in the usual free and sterile manner. At this time, the middle column of the surgical safety checklist was carried out by the surgical team. We then freed up the sponge that was located within the shoulder subdeltoid space and removed this without difficulty. We then irrigated the wound thoroughly and copiously using 2000 mL of normal saline with the Pulsavac lavage. We debrided the skin and subcutaneous tissue with a sponge and found that it was clean and appropriate to close. We therefore placed a #15 drain in the depths of the wound and brought this out at the distal end of the abscess cavity. We placed this within the shoulder abscess cavity itself. We then commenced closure. We closed subcutaneous tissues with 2-0 Vicryl, taking care to close the space by grabbing the deeper layer with the stitch as we placed the sutures. We then closed the skin with horizontal mattress sutures of 3-0 nylon. The drain was attached and the wound was then dressed with Telfa and Tegaderm. Anesthesia was terminated. The patient was transported to the recovery room in stable condition. There were no immediate postoperative complications. BLOOD LOSS: About 5 mL. BLOOD REPLACED: None. SPECIMENS: None. FINDINGS: Same as postoperative diagnosis. PROGNOSIS: Overall is fair, but guarded in view of the patient's known IV drug habit. MICHA AYALA MD Dictated by MICHA AYALA MD 08/26/2017 16:42:33 Transcribed on 08/26/2017 17:21:13 by [facility] job# [id number] Confirmation #: [id number] p Note - Arethaani ball, Micha Suazo MD - 08/26/2017 4:42 PM PSTOp note dictation # [id number]. nterval H&P Note (unlinked) - Radha kostaMicha MD - 08/26/2017 3:43 PM PSTSURGICAL INTERIM HISTORY & PHYSICAL UPDATE Pt. Name/Age/: Jessica Damon 52 y.o. 1965 Date of admission: 08/22/2017 The current H&P was reviewed. The patient was reexamined. Re-evaluation of the patient co nfirms the necessity for the scheduled procedure. Changes have occurred in the patient s condition since the H&P was performed less than 30 days ago that would be significant for th e planned course of treatment. These changes are as follows: The wound vac has been functioning well for 4 days and the shoulder appears less inflamed a nd potentially ready for closure. VERIFICATION OF CONSENT (PARQ) The patient was counseled regarding the procedure, its indications, risks, potential compli cations and alternatives. Any questions were answered. Consent was obtained. Electronically signed by: Micha Ayala MD, 08/26/2017 15:43 [facility] lan of Urvashi Fernandez - 08/26/2017 7:48 AM PSTFaxed referra l to [facility] in [place]. Electronically signed by: Urvashi Sutton 08/26/2017 7:48 lan of Yordan Higginbotham RN - 08/26/2017 5:21 AM PSTProblem: Patient Care Overview (Adult) Goal: Care Team Goals & Evaluation PROBLEM-RELATED GOALS: Pt will void spontaneously by 08/26/17 Jessica will meet 75% of predicted incentive spirometer goal of 2400ml by 08/26/2017. Pt will have adequate pain management 08/27/17 STRATEGY TO ACHIEVE GOALS: 2. Monitor I and O 3. Instruct patient how use of Incentive Spirometry and deep breath and cough. Nursing and Respiratory to work together to have patient use every hour while awake. Respiratory to mo nitor progress 4 times daily until 75% goal met then turn over to nursing. Assess for pain use non pharmacological and pharmacological interventions as needed RESTRAINT-RELATED GOALS: STRATEGIES TO ACHIEVE RESTRAINT GOALS: Outcome: Improving Goal Evaluation: Patient alert and oriented. VSS. Heart regular. Lungs are clear. Wound vac to right arm (de ltoid) , dressing is CDI. CMS is intact. Denies numbness and tingling. Has nicotine patch t o left shoulder. Pain has been managed wit oxycodone 20 mg PRN. Urinating well to the [facility] commode. Last bowel movement was 08/24/2017. Patient had no injuries or falls during this s hift. Patient was NPO after midnight. lan of [facility] - Bakari Benoit RN - 08/25/2017 5:08 PM PSTProblem: Patient Care Overview (Adult) Goal: Care Team Goals & Evaluation PROBLEM-RELATED GOALS: Pt will void spontaneously by 08/26/17 Jessica will meet 75% of predicted incentive spirometer goal of 2400ml by 08/26/2017. Pt will have adequate pain management 08/27/17 STRATEGY TO ACHIEVE GOALS: 2. Monitor I and O 3. Instruct patient how use of Incentive Spirometry and deep breath and cough. Nursing and Respiratory to work together to have patient use every hour while awake. Respiratory to mo nitor progress 4 times daily until 75% goal met then turn over to nursing. Assess for pain use non pharmacological and pharmacological interventions as needed RESTRAINT-RELATED GOALS: STRATEGIES TO ACHIEVE RESTRAINT GOALS: Goal Evaluation: Pt pain has been managed well with prn oxy. Wound vac to right arm, dressing is CDI. CMS i s intact. Denies numbness and tingling. Has nicotine patch to left shoulder. lan of Care - Ingrid Cesar Chaplain - 08/25/2017 2:27 PM PSTProblem: Patient Care Overview (Adult) Goal: Care Team Goals & Evaluation PROBLEM-RELATED GOALS: Pt will tolerate general diet by 08/23/16 Pt will void spontaneously by 08/23/16 Jessica will meet 75% of predicted incentive spirometer goal of 2400ml by 08/24/2017. STRATEGY TO ACHIEVE GOALS: 1. Advance diet as tolerated 2. Monitor I and O 3. Instruct patient how use of Incentive Spirometry and deep breath and cough. Nursing and Respiratory to work together to have patient use every hour while awake. Respiratory to mo nitor progress 4 times daily until 75% goal met then turn over to nursing. RESTRAINT-RELATED GOALS: STRATEGIES TO ACHIEVE RESTRAINT GOALS: Spiritual Care Jessica Damon is a 52 y.o. female who is admitted for Abscess of deltoid region [L02.419]. Conduit Cleaner visit was part of routine rounding. Spiritual Evaluation: Patient was resting in a bed and welcomed spiritual care. She is from [facility] and [facility] to return home. She is awaiting her dogs and her job there. 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 She is a Jew and has attended [employer] in the past. Spiritual Interventions: Film Composer attended, offered care, listened actively and explored meaning. Spiritual Outcomes: Patient appreciated the offer of spiritual care. Spiritual Goals/Follow-up: Follow up as needed. lan of Annmarie Rapp RN - 08/25/2017 2:15 AM PSTProblem: Patient Care Overview (Adult) Goal: Care Team Goals & Evaluation PROBLEM-RELATED GOALS: Pt will tolerate general diet by 08/23/16 Pt will void spontaneously by 08/23/16 Jessica will meet 75% of predicted incentive spirometer goal of 2400ml by 08/24/2017. STRATEGY TO ACHIEVE GOALS: 1. Advance diet as tolerated 2. Monitor I and O 3. Instruct patient how use of Incentive Spirometry and deep breath and cough. Nursing and Respiratory to work together to have patient use every hour while awake. Respiratory to mo nitor progress 4 times daily until 75% goal met then turn over to nursing. RESTRAINT-RELATED GOALS: STRATEGIES TO ACHIEVE RESTRAINT GOALS: Outcome: Improving Goal Evaluation: Wound vac drsg inplace right deltoid with continuous suction at 100 . Med for pain in right shoulder with percocet 20 mg with good relief, melatonin given for sleep with good results. lan of [facility] - Bakari Guevara RN - 08/24/2017 3:38 PM PSTProblem: Patient Care Overview (Adult) Goal: Care Team Goals & Evaluation PROBLEM-RELATED GOALS: Pt will tolerate general diet by 08/23/16 Pt will void spontaneously by 08/23/16 Jessica will meet 75% of predicted incentive spirometer goal of 2400ml by 08/24/2017. STRATEGY TO ACHIEVE GOALS: 1. Advance diet as tolerated 2. Monitor I and O 3. Instruct patient how use of Incentive Spirometry and deep breath and cough. Nursing and Respiratory to work together to have patient use every hour while awake. Respiratory to mo nitor progress 4 times daily until 75% goal met then turn over to nursing. RESTRAINT-RELATED GOALS: STRATEGIES TO ACHIEVE RESTRAINT GOALS: Goal Evaluation: Pt pain is managed well at this time with prn oxy. Wound vac to right arm. CMS is intact, denies numbness and tingling. Voiding without difficulty. BM today. lan of Annmarie Sue RN - 08/24/2017 4:37 AM PSTProblem: Patient Care Overview (Adult) Goal: Care Team Goals & Evaluation PROBLEM-RELATED GOALS: Pt will tolerate general diet by 08/23/16 Pt will void spontaneously by 08/23/16 Jessica will meet 75% of predicted incentive spirometer goal of 2400ml by 08/24/2017. STRATEGY TO ACHIEVE GOALS: 1. Advance diet as tolerated 2. Monitor I and O 3. Instruct patient how use of Incentive Spirometry and deep breath and cough. Nursing and Respiratory to work together to have patient use every hour while awake. Respiratory to mo nitor progress 4 times daily until 75% goal met then turn over to nursing. RESTRAINT-RELATED GOALS: STRATEGIES TO ACHIEVE RESTRAINT GOALS: Outcome: Improving Goal Evaluation: Tolerating general diet, voiding without problems, wound vac inplac e right upper extremity, oxycodone given for pain with good relief. lan of Yonathan Turner RRT - 08/23/2017 5:39 PM PSTProblem: Patient Care Overview (Adult) Goal: Care Team Goals & Evaluation PROBLEM-RELATED GOALS: Pt will tolerate general diet by 08/23/16 Pt will void spontaneously by 08/23/16 Jessica will meet 75% of predicted incentive spirometer goal of 2400ml by 08/24/2017. STRATEGY TO ACHIEVE GOALS: 1. Advance diet as tolerated 2. Monitor I and O 3. Instruct patient how use of Incentive Spirometry and deep breath and cough. Nursing and Respiratory to work together to have patient use every hour while awake. Respiratory to mo nitor progress 4 times daily until 75% goal met then turn over to nursing. RESTRAINT-RELATED GOALS: STRATEGIES TO ACHIEVE RESTRAINT GOALS: Outcome: Unchanged Goal Evaluation: SpO2: 95 % on room air. Jessica has not required any additional therapies from me today. She has done well on room air. lan of [facility] Bakari Faiht RN - 08/23/2017 4:07 PM PSTProblem: Patient Care Overview (Adult) Goal: Care Team Goals & Evaluation PROBLEM-RELATED GOALS: Pt will tolerate general diet by 08/23/16 Pt will void spontaneously by 08/23/16 Jessica will meet 75% of predicted incentive spirometer goal of 2400ml by 08/24/2017. STRATEGY TO ACHIEVE GOALS: 1. Advance diet as tolerated 2. Monitor I and O 3. Instruct patient how use of Incentive Spirometry and deep breath and cough. Nursing and Respiratory to work together to have patient use every hour while awake. Respiratory to mo nitor progress 4 times daily until 75% goal met then turn over to nursing. RESTRAINT-RELATED GOALS: STRATEGIES TO ACHIEVE RESTRAINT GOALS: Outcome: Improving Goal Evaluation: Pt pain is managed well with prn oxy. Wound vac to right upper arm, noted moderate amount sanguinous drainage to wound vac canister. CMS is intact. Tolerating diet well. Voiding with out difficulty. lan of [facility] - Edelmira Vo LICSW - 08/23/2017 12:49 PM PSTDischarge Planning Goal: Pt to be discharged in a safe manner Summary /Intervention: Met with patient regarding discharge plans. Pt is sitting up in bed, presents as polite an d pleasant. Pt was driven to the ER by her significant other yesterday due to right shoulder and arm pa in. Pt states that she has been a heroin user for the past 25 years. Pt reports she injected herself with heroin resulting in her infection. Jessica states she has been trying to stop using heroin and has been recently connected with the [facility]. She has been connected with Suboxone therapy, she is also working with [facility]A.and group therapy through the [facility] Pt lacks primary care, handbook writer provided options for primary care. Bpm Solution Architect to see who is available in [place]. Telephone call to [facility] ) [facility] has a nurse practictoner available, Kennedy Ruiz. He (like all their providers) require medical information to review prior to accepting patients. Their fax number is [phone]) Plan: Continue to assess Pt intends to return home, her significant other or her mother will provide transportation Will need follow up with patient regarding her ok with sending her information for review f or primary care provider Electronically signed by: LISA Castro 08/23/2017 12:50 Discharge Planning: Attempted follow up visit with patient, she is sleeping soundly Electronically signed by: LISA Castro 08/23/2017 17:03 lan of Josh - Caterina House, ANTONY - 08/23/2017 5:43 AM PSTProblem: Patient Care Overview (Adult) Goal: Care Team Goals & Evaluation PROBLEM-RELATED GOALS: Pt will tolerate general diet by 08/23/16 Pt will void spontaneously by 08/23/16 Jessica will meet 75% of predicted incentive spirometer goal of 2400ml by 08/24/2017. STRATEGY TO ACHIEVE GOALS: 1. Advance diet as tolerated 2. Monitor I and O 3. Instruct patient how use of Incentive Spirometry and deep breath and cough. Nursing and Respiratory to work together to have patient use every hour while awake. Respiratory to mo nitor progress 4 times daily until 75% goal met then turn over to nursing. RESTRAINT-RELATED GOALS: STRATEGIES TO ACHIEVE RESTRAINT GOALS: Outcome: Improving Goal Evaluation: Patient was instructed on how to use a incentive spirometer. Patient did well and was able to surpass her goal. Breath sounds are clear and regular. SpO2: 93 % on room air lan of Care - Annmarie Adhikari RN - 08/23/2017 2:59 AM PSTProblem: Patient Care Overview (Adult) Goal: Care Team Goals & Evaluation PROBLEM-RELATED GOALS: Pt will tolerate general diet by 08/23/16 Pt will void spontaneously by 08/23/16 STRATEGY TO ACHIEVE GOALS: 1. Advance diet as tolerated 2. Monitor I and O RESTRAINT-RELATED GOALS: STRATEGIES TO ACHIEVE RESTRAINT GOALS: Outcome: Improving Goal Evaluation: Postop vss, wound vac drsg changed by , Vac with serosanguinous drainage, med for pain with oxycodone with oxycodone, Tolerating general diet well. One person assist to manage tubing for mobility. p Note - Micha Moore MD - 08/22/2017 6:[address] [id number] OPERATIVE REPORT MICHA AYALA MD Patient: JESSICA DAMON Admitting: MICHA AYALA MR #: [id number] LOC: PT TYPE: Adm Date: 08/22/2017 : 1965 DATE OF SURGERY AND DATE OF DICTATION: 08/22/2017. OPERATING SURGEON: Micha Ayala MD. ENVIRONMENTAL SUSTAINABILITY MANAGER: TITO Maldonado. ANESTHESIOLOGIST: Lam Granados MD. PREOPERATIVE DIAGNOSIS: Right shoulder intradeltoid abscess. POSTOPERATIVE DIAGNOSIS: Right shoulder intradeltoid abscess. TITLE OF OPERATION: Incision, drainage, and debridement of intradeltoid abscess, right shoulder, with wound VAC application. HISTORY AND REASON FOR SURGERY: Jessica Damon is a 52-year-old female who resides in [place], [place]. She has a habit of skin popping with heroin. She was performing heroin injections into her right shoulder about a week ago and then developed some redness in her shoulder. She was seen in an emergency room in [place], [place], and was given a prescription for Keflex. Unfortunately, she noted increasing pain and redness over the past 36 hours and came to [facility] emergency room today for evaluation and care. A CT scan was obtained showing a large right shoulder abscess and therefore orthopedic consultation was requested. Her shoulder was found to be swollen, painful, and red, consistent with an intradeltoid abscess and for this reason, she is felt to be a candidate for emergent incision and drainage and therefore the planned procedure with its risks, possible complications, expected prognosis, and treatment alternatives were discussed with the patient. Risks and possible complications were listed, but not limited to persistence of infection, nerve and vessel damage, bleeding, pain, scarring, stiffness, the need for further surgery, and the risk of anesthesia. She verbalized understanding. No guarantees were given or implied other than that of diligent effort. OPERATIVE PROCEDURE: After the patient signed the consent for surgery, she was brought to the operating room where she underwent general anesthesia successfully. An inferior jugular central line was placed by anesthesia. She was then carefully placed in the beach chair position with a towel bump under her right shoulder. The entire right upper extremity and right shoulder was then prepped with alcohol and ChloraPrep and draped in the usual free and sterile manner. At this time, the middle column of the surgical safety checklist was carried out by the surgical team. We then made a 1 inch incision into the central aspect of the very swollen shoulder and were rewarded with purulent material that gushed out across the room. We sampled the fluid for aerobic and anaerobic cultures. We then drained the rest of the shoulder abscess cavity with suction. We debrided the cavity gently with a finger gauze technique and then irrigated the cavity thoroughly with 4 liters of normal saline with the Pulsavac lavage. This being completed, we then placed a size small wound VAC sponge within the cavity and sealed this in place with wound VAC seal tape. The sucker for it was applied. The wound VAC cannister was attached to the wound VAC device and suction was applied and we were found to have excellent seal and excellent wound VAC function. We therefore secured the wound VAC system to the patient's arm and then placed her in a shoulder immobilizer. Anesthesia was terminated. She was transported to the recovery room in stable condition. There were no immediate postoperative complications. Blood loss was about 5 mL intraoperatively. We also removed approximately 30-35 mL of shoulder abscess material. FINDINGS: Same as postoperative diagnosis. SPECIMENS: Include aerobic and anaerobic cultures. PROGNOSIS: Guarded. MICHA AYALA MD Dictated by MICHA AYALA MD 08/22/2017 18:00:11 Transcribed on 08/22/2017 18:30:55 by kate job# [id number] Confirmation #: [id number] p Note - Micha Fernandes MD - 08/22/2017 6:00 PM PSTOp note dictation # [id number]. documented in this encounter Plan of Treatment Not on filedocumented as of this encounter Procedures + +--------+ + + + | Procedure Name | Priori | Date/Time | Associated Diagnosis | Comments | | | ty | | | | + +--------+ + + + | CBC WITH | Routin | 08/28/2017 | | Results for this | | DIFFERENTIAL | e | 6:26 AM | | procedure are in the | | | | PST | | results section. | + +--------+ + + + | BASIC METABOLIC | Routin | 08/27/2017 | | Results for this | | PANEL | e | 2:15 PM | | procedure are in the | | | | PST | | results section. | + +--------+ + + + | INCISION AND | | 08/26/2017 | Abscess of deltoid | | | DRAINAGE UPPER | | 4:04 PM | region [L02.419]; | | | EXTREMITY | | PST | | | + +--------+ + + + | PROCALCITONIN, SERUM | Routin | 08/26/2017 | | Results for this | | | e | 6:45 AM | | procedure are in the | | | | PST | | results section. | + +--------+ + + + | PROCALCITONIN, SERUM | Routin | 08/25/2017 | | Results for this | | | e | 10:49 AM | | procedure are in the | | | | PST | | results section. | + +--------+ + + + | XR CHEST AP PORTABLE | ONI | 08/24/2017 | Abscess of deltoid | Results for this | | | | 12:19 PM | region | procedure are in the | | | | PST | | results section. | + +--------+ + + + | VANCOMYCIN, TROUGH | Timed | 08/24/2017 | | Results for this | | | | 4:08 AM | | procedure are in the | | | | PST | | results section. | + +--------+ + + + | BASIC METABOLIC | Routin | 08/24/2017 | | Results for this | | PANEL | e | 4:08 AM | | procedure are in the | | | | PST | | results section. | + +--------+ + + + | CBC NO DIFFERENTIAL | Routin | 08/23/2017 | | Results for this | | | e | 11:54 AM | | procedure are in the | | | | PST | | results section. | + +--------+ + + + | HEPATITIS PANEL, | Routin | 08/23/2017 | | Results for this | | ACUTE | e | 3:41 AM | | procedure are in the | | | | PST | | results section. | + +--------+ + + + | HEPATIC FUNCTION | Routin | 08/23/2017 | | Results for this | | PANEL | e | 3:41 AM | | procedure are in the | | | | PST | | results section. | + +--------+ + + + | DRUGS OF ABUSE, | Routin | 08/23/2017 | | Results for this | | SCREEN, URINE | e | 3:40 AM | | procedure are in the | | | | PST | | results section. | + +--------+ + + + | CBC WITH | Routin | 08/23/2017 | | Results for this | | DIFFERENTIAL | e | 3:40 AM | | procedure are in the | | | | PST | | results section. | + +--------+ + + + | MAGNESIUM | Routin | 08/23/2017 | | Results for this | | | e | 3:40 AM | | procedure are in the | | | | PST | | results section. | + +--------+ + + + | BASIC METABOLIC | Routin | 08/23/2017 | | Results for this | | PANEL | e | 3:39 AM | | procedure are in the | | | | PST | | results section. | + +--------+ + + + | CULTURE, BLOOD | STAT | 08/22/2017 | | Results for this | | | | 8:45 PM | | procedure are in the | | | | PST | | results section. | + +--------+ + + + | CULTURE, BLOOD | STAT | 08/22/2017 | | Results for this | | | | 8:31 PM | | procedure are in the | | | | PST | | results section. | + +--------+ + + + | CULTURE, WOUND, | Routin | 08/22/2017 | | Results for this | | SMEAR | e | 6:10 PM | | procedure are in the | | | | PST | | results section. | + +--------+ + + + | CULTURE, WOUND, | Routin | 08/22/2017 | | Results for this | | SMEAR, W/ANAEROBE | e | 6:10 PM | | procedure are in the | | | | PST | | results section. | + +--------+ + + + | CULTURE, ANAEROBIC | Routin | 08/22/2017 | | Results for this | | | e | 6:10 PM | | procedure are in the | | | | PST | | results section. | + +--------+ + + + | XR CHEST AP PORTABLE | STAT | 08/22/2017 | | Results for this | | | | 5:59 PM | | procedure are in the | | | | PST | | results section. | + +--------+ + + + | CT UPPER EXTREMITY | Routin | 08/22/2017 | | Results for this | | RIGHT W CONTRAST | e | 2:08 PM | | procedure are in the | | | | PST | | results section. | + +--------+ + + + | CBC WITH | STAT | 08/22/2017 | | Results for this | | DIFFERENTIAL | | 1:47 PM | | procedure are in the | | | | PST | | results section. | + +--------+ + + + | CK TOTAL | STAT | 08/22/2017 | | Results for this | | | | 1:47 PM | | procedure are in the | | | | PST | | results section. | + +--------+ + + + | BASIC METABOLIC | STAT | 08/22/2017 | | Results for this | | PANEL | | 1:47 PM | | procedure are in the | | | | PST | | results section. | + +--------+ + + + documented in this encounter Results CBC with Differential (08/28/2017 6:26 AM PST) + + + + + + | Component | Value | Ref Range | Performed | Pathologist | | | | | At | Signature | + + + + + + | White Blood | 13.2 (H) | 4.0 - 11.0 K/uL | [facility] | | | Cells | | | [facility] | | | | | [facility] | | | | | [facility] - | | | | | | LAB[facility]ATORY | | + + + + + + | Red Blood | 3.81 | 3.70 - 5.20 | [facility] | | | Cells | | M/uL | [facility] | | | | | | [facility] | | | | | | [facility] - | | | | | | LABORATORY | | + + + + + + | Hemoglobin | 10.7 (L) | 11.5 - 16.0 | [facility] | | | | | g/dL | [facility] | | | | | | [facility] | | | | | | [facility] - | | | | | | LABORATORY | | + + + + + + | Hematocrit | 32.7 (L) | 34.0 - 47.0 % | [facility] | | | | | | [facility] | | | | | | [facility] | | | | | | [facility] - | | | | | | LABORATORY | | + + + + + + | MCV | 85.9 | 83.0 - 101.0 fL | [facility] | | | | | | [facility] | | | | | | [facility] | | | | | | [facility] - | | | | | | LABORATORY | | + + + + + + | MCH | 28.1 | 28.0 - 35.0 pg | [facility] | | | | | | [facility] | | | | | | [facility] | | | | | | [facility] - | | | | | | LABORATORY | | + + + + + + | MCHC | 32.7 | 32.0 - 36.0 | [facility] | | | | | g/dL | [facility] | | | | | | [facility] | | | | | | CENTER - | | | | | | LABORATORY | | + + + + + + | RDW-CV | 13.1 | <15.0 % | [facility] | | | | | | [facility] | [facility] | [facility] | | | | | | [facility] - | | | | | | LABORATORY | | + + + + + + | Platelet | 305 | 140 - 440 K/uL | [facility] | | | Count | | | [facility] | | | | | | [facility] | | | | | | CENTER - | | | | | | LABORATORY | | + + + + + + | MPV | 7.9 | fL | [facility] | | | | | | [facility] | | | | | | [facility] | | | | | | [facility] - | | | | | | LABORATORY | | + + + + + + | % | 58.5 | 45.0 - 82.0 % | [facility] | | | Neutrophils | | | [facility] | | | | | | [facility] | | | | | | CENTER - | | | | | | LABORATORY | | + + + + + + | % | 31.2 | 20.0 - 45.0 % | [facility] | | | Lymphocytes | | | [facility] | | | | | | [facility] | | | | | | CENTER - | | | | | | LABORATORY | | + + + + + + | % Monocytes | 6.7 | 4.0 - 12.0 % | [facility] | | | | | | [facility] | | | | | | [facility] | | | | | | [facility] - | | | | | | LABORATORY | | + + + + + + | % | 3.2 | 0.0 - 5.0 % | [facility] | | | Eosinophils | | | [facility] | | | | | | [facility] | | | | | | CENTER - | | | | | | LABORATORY | | + + + + + + | % Basophils | 0.4 | 0.0 - 1.0 % | [facility] | | | | | | [facility] | | | | | | [facility] | | | | | | [facility] - | | | | | | LABORATORY | | + + + + + + | Absolute | 7.70 | 1.80 - 8.50 | [facility] | | | Neutrophils | | K/uL | [facility] | | | | | | [facility] | | | | | | CENTER - | | | | | | LABORATORY | | + + + + + + | Absolute | 4.10 (H) | 0.60 - 3.20 | [facility] | | | Lymphocytes | | K/uL | [facility] | | | | | | [facility] | | | | | | CENTER - | | | | | | LABORATORY | | + + + + + + | Absolute | 0.90 | 0.00 - 1.00 | [facility] | | | Monocytes | | K/uL | [facility] | | | | | | [facility] | | | | | | CENTER - | | | | | | LABORATORY | | + + + + + + | Absolute | 0.40 | 0.00 - 0.40 | [facility] | | | Eosinophils | | K/uL | [facility] | | | | | | [facility] | | | | | | CENTER - | | | | | | LABORATORY | | + + + + + + | Absolute | 0.10 | 0.00 - 0.10 | [facility] | | | Basophils | | K/uL | [facility] | | | | | [facility] | | | | | | CENTER - | | | | | | LABORATORY | | + + + + + + + + | Specimen | + + | Blood | + + + + + + + | Performing | Address | City/State/Zipcode | Phone Number | | Organization | | | | + + + + + | [facility] | [address] | [place] | [phone] | | [facility] | | [address] | | | - LABORATORY | | | | + + + + + Basic Metabolic Panel (08/27/2017 2:15 PM PST) + + + + + + | Component | Value | Ref Range | Performed | Pathologist | | | | | At | Signature | + + + + + + | Na | 139 | 136 - 149 | [facility] | | | | | mmol/L | [facility] | | | | | | [facility] | | | | | | CENTER - | | | | | | LABORATORY | | + + + + + + | K | 3.8 | 3.5 - 5.1 | [facility] | | | | | mmol/L | [facility] | | | | | | [facility] | | | | | | CENTER - | | | | | | LABORATORY | | + + + + + + | Cl | 103 | 98 - 109 mmol/L | [facility] | | | | | | [facility] | | | | | | [facility] | | | | | | CENTER - | | | | | | LABORATORY | | + + + + + + | CO2 | 29 | 24 - 31 mmol/L | [facility] | | | | | | [facility] | | | | | | [facility] | | | | | | CENTER - | | | | | | LABORATORY | | + + + + + + | Anion Gap | 7 | 3 - 16 mmol/L | [facility] | | | | | | [facility] | | | | | | [facility] | | | | | | CENTER - | | | | | | LABORATORY | | + + + + + + | Glucose | 125 (H) | 70 - 109 mg/dL | [facility] | | | | | | [facility] | | | | | | [facility] | | | | | | CENTER - | | | | | | LABORATORY | | + + + + + + | BUN | 20 (H) | 7 - 18 mg/dL | [facility] | | | | | | [facility] | | | | | | [facility] | | | | | | CENTER - | | | | | | LABORATORY | | + + + + + + | Creatinine | 0.91 | 0.60 - 1.30 | [facility] | | | | | mg/dL | [facility] | | | | | | MEDICAL | | | | | | CENTER - | | | | | | LABORATORY | | + + + + + + | eGFR, | >60Comment: GLOMERULAR | >=60 | [facility] | | | non- | FILTRATION | mL/min/1.73m2 | [facility] | | | [place] | RATE,ESTIMATED | | MEDICAL | | | | mL/min/1.02m9Tprf than | | CENTER - | | | | 60 Chronic kidney | | LABORATORY | | | | disease,if found over a | | | | | | 3-month period.Less than | | | | | | 15 Kidney failureFor | | | | | | | | | | | | Americans,multiply the | | | | | | calculated GFR by 1.21. | | | | | | | | | | + + + + + + | Calcium | 8.6 | 8.3 - 10.5 | [facility] | | | | | mg/dL | [facility] | | | | | | MEDICAL | | | | | | CENTER - | | | | | | LABORATORY | | + + + + + + | BUN/Creatin | 22.0 | | [facility] | | | ine Ratio | | | [facility] | | | | | | MEDICAL | | | | | | CENTER - | | | | | | LABORATORY | | + + + + + + + + | Specimen | + + | Blood | + + + + + + + | Performing | Address | City/State/Zipcode | Phone Number | | Organization | | | | + + + + + | [facility] | [address] | [place] | [phone] | | [facility] | | [address] | | | - LABORATORY | | | | + + + + + Procalcitonin (08/26/2017 6:45 AM PST) + + + + + + | Component | Value | Ref Range | Performed | Pathologist | | | | | At | Signature | + + + + + + | Procalciton | <0.05 | <=0.50 ng/mL | [facility] | | | in | | | [facility] | | | | | | [facility] | | | | | | CENTER - | | | | | | LABORATORY | | + + + + + + | Comment | Comment: < 0.50 | | [facility] | | | | ng/mL:Procalcitonin | | [facility] | | | | levels below 0.50 ng/mL | | MEDICAL | | | | on the first day of | | CENTER - | | | | admission represents a | | LABORATORY | | | | low risk for progression | | | | | | to severe sepsis and/or | | | | | | septic shock, however | | | | | | these do not exclude an | | | | | | infection, because | | | | | | localized infections | | | | | | (without systemic signs) | | | | | | may also be associated | | | | | | with such low levels. | | | | | | > 2.00 | | | | | | ng/mL:Procalcitonin | | | | | | levels above 2.00 ng/mL | | | | | | on the first day of | | | | | | admission represents a | | | | | | high risk for | | | | | | progression to severe | | | | | | sepsis and/or septic | | | | | | shock. If the | | | | | | procalcitonin | | | | | | measurement is performed | | | | | | shortly after the | | | | | | systemic infection | | | | | | process has started | | | | | | (usually less than 6 | | | | | | hours), these values may | | | | | | still be low. As | | | | | | various non-infectious | | | | | | conditions are known to | | | | | | induce procalcitonin as | | | | | | well, procalcitonin | | | | | | levels between 0.50 | | | | | | ng/mL and 2.00 ng/mL | | | | | | should be reviewed | | | | | | carefully to take into | | | | | | account the specific | | | | | | clinical background and | | | | | | condition(s) of the | | | | | | individual patient. | | | | + + + + + + + + | Specimen | + + | Blood | + + + + + + + | Performing | Address | City/State/Zipcode | Phone Number | | Organization | | | | + + + + + | [facility] | [address] | [place] | [phone] | | [facility] | | [address] | | | - LABORATORY | | | | + + + + + Procalcitonin (08/25/2017 10:49 AM PST) + + + + + + | Component | Value | Ref Range | Performed | Pathologist | | | | | At | Signature | + + + + + + | Procalciton | <0.05 | <=0.50 ng/mL | [facility] | | | in | | | [facility] | | | | | | MEDICAL | | | | | | CENTER - | | | | | | LABORATORY | | + + + + + + | Comment | Comment: < 0.50 | | [facility] | | | | ng/mL:Procalcitonin | | [facility] | | | | levels below 0.50 ng/mL | | MEDICAL | | | | on the first day of | | CENTER - | | | | admission represents a | | LABORATORY | | | | low risk for progression | | | | | | to severe sepsis and/or | | | | | | septic shock, however | | | | | | these do not exclude an | | | | | | infection, because | | | | | | localized infections | | | | | | (without systemic signs) | | | | | | may also be associated | | | | | | with such low levels. | | | | | | > 2.00 | | | | | | ng/mL:Procalcitonin | | | | | | levels above 2.00 ng/mL | | | | | | on the first day of | | | | | | admission represents a | | | | | | high risk for | | | | | | progression to severe | | | | | | sepsis and/or septic | | | | | | shock. If the | | | | | | procalcitonin | | | | | | measurement is performed | | | | | | shortly after the | | | | | | systemic infection | | | | | | process has started | | | | | | (usually less than 6 | | | | | | hours), these values may | | | | | | still be low. As | | | | | | various non-infectious | | | | | | conditions are known to | | | | | | induce procalcitonin as | | | | | | well, procalcitonin | | | | | | levels between 0.50 | | | | | | ng/mL and 2.00 ng/mL | | | | | | should be reviewed | | | | | | carefully to take into | | | | | | account the specific | | | | | | clinical background and | | | | | | condition(s) of the | | | | | | individual patient. | | | | + + + + + + + + | Specimen | + + | Blood | + + + + + + + | Performing | Address | City/State/Zipcode | Phone Number | | Organization | | | | + + + + + | [facility] | [address] | [place] | [phone] | | [facility] | | [address] | | | - LABORATORY | | | | + + + + + XR Chest AP Portable (08/24/2017 12:19 PM PST) + + | Specimen | + + | | + + + + + | Narrative | Performed At | + + + | CLINICAL INFORMATION: picc line placement. COMPARISON: | [facility] | | 08/22/2017. FINDINGS: Portable frontal chest radiograph. Left | | | internal jugular central venous catheter with the tip at the superior | | | vena cava. Left PICC line the tip at the superior vena cava. | | | Lungs: No focal airspace disease, pleural effusion, or pneumothorax. | | | Heart/mediastinum: Cardiac silhouette is of normal size. Central | | | pulmonary vasculature has a normal appearance. Bones: No acute | | | osseous abnormality appreciated. IMPRESSION - Lines as above. | | | No acute cardiopulmonary disease. Dictated and Signed by: | | | Ambrosio Albarado MD Electronically signed: 08/24/2017 12:19 PM | | + + + + + | Procedure Note | + + | Tam Pierson Results In - 08/24/2017 12:22 PM PST | | CLINICAL INFORMATION: picc line placement. | | | | COMPARISON: 08/22/2017. | | | | FINDINGS: | | Portable frontal chest radiograph. | | | | Left internal jugular central venous catheter with the tip at the superior vena | | cava. | | Left PICC line the tip at the superior vena cava. | | | | Lungs: No focal airspace disease, pleural effusion, or pneumothorax. | | | | Heart/mediastinum: Cardiac silhouette is of normal size. Central pulmonary | | vasculature has a normal appearance. | | | | Bones: No acute osseous abnormality appreciated. | | | | IMPRESSION - | | Lines as above. | | | | No acute cardiopulmonary disease. | | | | Dictated and Signed by: Ambrosio Albarado MD | | Electronically signed: 08/24/2017 12:19 PM | + + + +---------+ + + | Performing | Address | City/State/Zipcode | Phone Number | | Organization | | | | + +---------+ + + | [facility] | | | | + +---------+ + + Basic Metabolic Panel (08/24/2017 4:08 AM PST) + + + + + + | Component | Value | Ref Range | Performed | Pathologist | | | | | At | Signature | + + + + + + | Na | 141 | 136 - 149 | [facility] | | | | | mmol/L | [facility] | | | | | | MEDICAL | | | | | | CENTER - | | | | | | LABORATORY | | + + + + + + | K | 3.7 | 3.5 - 5.1 | [facility] | | | | | mmol/L | [facility] | | | | | | MEDICAL | | | | | | CENTER - | | | | | | LABORATORY | | + + + + + + | Cl | 108 | 98 - 109 mmol/L | [facility] | | | | | | [facility] | | | | | | MEDICAL | | | | | | CENTER - | | | | | | LABORATORY | | + + + + + + | CO2 | 28 | 24 - 31 mmol/L | [facility] | | | | | | [facility] | | | | | | [facility] | | | | | | CENTER - | | | | | | LABORATORY | | + + + + + + | Anion Gap | 5 | 3 - 16 mmol/L | [facility] | | | | | | [facility] | | | | | | [facility] | | | | | | CENTER - | | | | | | LABORATORY | | + + + + + + | Glucose | 114 (H) | 70 - 109 mg/dL | [facility] | | | | | | [facility] | | | | | | [facility] | | | | | | CENTER - | | | | | | LABORATORY | | + + + + + + | BUN | 12 | 7 - 18 mg/dL | [facility] | | | | | | [facility] | | | | | | [facility] | | | | | | CENTER - | | | | | | LABORATORY | | + + + + + + | Creatinine | 0.67 | 0.60 - 1.30 | [facility] | | | | | mg/dL | [facility] | | | | | | MEDICAL | | | | | | CENTER - | | | | | | LABORATORY | | + + + + + + | eGFR, | >60Comment: GLOMERULAR | >=60 | [facility] | | | non- | FILTRATION | mL/min/1.73m2 | [facility] | | | [place] | RATE,ESTIMATED | | MEDICAL | | | | mL/min/1.58b2Qruq than | | CENTER - | | | | 60 Chronic kidney | | LABORATORY | | | | disease,if found over a | | | | | | 3-month period.Less than | | | | | | 15 Kidney failureFor | | | | | | | | | | | | Americans,multiply the | | | | | | calculated GFR by 1.21. | | | | | | | | | | + + + + + + | Calcium | 8.8 | 8.3 - 10.5 | [facility] | | | | | mg/dL | [facility] | | | | | | MEDICAL | | | | | | CENTER - | | | | | | LABORATORY | | + + + + + + | BUN/Creatin | 17.9 | | [facility] | | | ine Ratio | | | [facility] | | | | | | [facility] | | | | | | CENTER - | | | | | | LABORATORY | | + + + + + + + + | Specimen | + + | Blood | + + + + + + + | Performing | Address | City/State/Zipcode | Phone Number | | Organization | | | | + + + + + | [facility] | [address] | [place] | [phone] | | [facility] | | [address] | | | - LABORATORY | | | | + + + + + Vancomycin, Trough (08/24/2017 4:08 AM PST) + +-------+ + + + | Component | Value | Ref Range | Performed | Pathologist | | | | | At | Signature | + +-------+ + + + | Date of | | | [facility] | | | Last Dose | | | [facility] | | | | | | [facility]ICAL | | | | | | CENTER - | | | | | | LABORATORY | | + +-------+ + + + | Time of | | | [facility] | | | Last Dose | | | [facility] | | | | | | [facility] | | | | | | CENTER - | | | | | | LABORATORY | | + +-------+ + + + | Vancomycin | 11.2 | <=20.0 ug/mL | [facility] | | | Trough | | | [facility] | | | | | | MEDICAL | | | | | | CENTER - | | | | | | LABORATORY | | + +-------+ + + + + + | Specimen | + + | Blood | + + + + + + + | Performing | Address | City/State/Zipcode | Phone Number | | Organization | | | | + + + + + | [facility] | [address] | [place] | [phone] | | [facility] | | [address] | | | - LABORATORY | | | | + + + + + CBC no Differential (08/23/2017 11:54 AM PST) + + + + + + | Component | Value | Ref Range | Performed | Pathologist | | | | | At | Signature | + + + + + + | White Blood | 17.4 (H) | 4.0 - 11.0 K/uL | [facility] | | | Cells | | | [facility] | | | | | | MEDICAL | | | | | | CENTER - | | | | | | LABORATORY | | + + + + + + | Red Blood | 3.70 | 3.70 - 5.20 | [facility] | | | Cells | | M/uL | [facility] | | | | | | MEDICAL | | | | | | CENTER - | | | | | | LABORATORY | | + + + + + + | Hemoglobin | 10.5 (L) | 11.5 - 16.0 | [facility] | | | | | g/dL | [facility] | | | | | | MEDICAL | | | | | | CENTER - | | | | | | LABORATORY | | + + + + + + | Hematocrit | 31.7 (L) | 34.0 - 47.0 % | [facility] | | | | | | [facility] | | | | | | MEDICAL | | | | | | CENTER - | | | | | | LABORATORY | | + + + + + + | MCV | 85.8 | 83.0 - 101.0 fL | [facility] | | | | | | [facility] | | | | | | MEDICAL | | | | | | CENTER - | | | | | | LABORATORY | | + + + + + + | MCH | 28.4 | 28.0 - 35.0 pg | [facility] | | | | | | [facility] | | | | | | MEDICAL | | | | | | CENTER - | | | | | | LABORATORY | | + + + + + + | MCHC | 33.2 | 32.0 - 36.0 | [facility] | | | | | g/dL | [facility] | | | | | | MEDICAL | | | | | | CENTER - | | | | | | LABORATORY | | + + + + + + | RDW-CV | 13.2 | <15.0 % | [facility] | | | | | | [facility] | | | | | | MEDICAL | | | | | | CENTER - | | | | | | LABORATORY | | + + + + + + | Platelet | 284 | 140 - 440 K/uL | [facility] | | | Count | | | [facility] | | | | | | MEDICAL | | | | | | CENTER - | | | | | | LABORATORY | | + + + + + + | MPV | 8.5 | fL | [facility] | | | | | | [facility] | | | | | | MEDICAL | | | | | | CENTER - | | | | | | LABORATORY | | + + + + + + + + | Specimen | + + | Blood | + + + + + + + | Performing | Address | City/State/Zipcode | Phone Number | | Organization | | | | + + + + + | [facility] | [address] | [place] | [phone] | | [facility] | | [address] | | | - LABORATORY | | | | + + + + + Hepatitis Panel, Acute (08/23/2017 3:41 AM PST) + + + + + + | Component | Value | Ref Range | Performed | Pathologist | | | | | At | Signature | + + + + + + | HEP A IGM | Negative | Negative | [facility] | | | AB, REF | | | LAB [facility] | | | | | | - [facility] | | + + + + + + | Hepatitis B | Negative | Negative | [facility] | | | Surface Ag | | | [facility] | | | | | | - [facility] | | + + + + + + | HEP B Core | Negative | Negative | [facility] | | | IGM | | | [facility] | | | Antibody | | | - [facility] | | + + + + + + | Hepatitis C | >11.0 (H)Comment: | 0.0 - 0.9 s/co | [facility] | | | Ab | | ratio | LAB [facility] | | | | | | - [facility] | | | | Negative: < 0.8 | | | | | | | | | | | | | | | | | | Indeterminate: 0.8 - 0.9 | | | | | | | | | | | | | | | | | | Positive: > 0.9 | | | | | | The CDC recommends that | | | | | | a positive HCV antibody | | | | | | result be followed up | | | | | | with a HCV Nucleic Acid | | | | | | Amplification test | | | | | | ([id number]). | | | | + + + + + + + + | Specimen | + + | Blood | + + + + + | Narrative | Performed At | + + + | Performed at: [address] [facility] [address], | [facility] | | [place], [place] [id number] Flexboard Operator: Jordan Currie MD, Phone: | [facility] | | [phone] | | + + + + + + + + | Performing | Address | City/State/Zipcode | Phone Number | | Organization | | | | + + + + + | [facility] | [address] | [place], [place] | [phone] | | [facility] | Drive [facility] | [id number] | | + + + + + Hepatic Function Panel (08/23/2017 3:41 AM PST) + +---------+ + + + | Component | Value | Ref Range | Performed | Pathologist | | | | | At | Signature | + +---------+ + + + | Bilirubin | 0.3 | 0.1 - 1.5 mg/dL | [facility] | | | Total | | | [facility] | | | | | | MEDICAL | | | | | | CENTER - | | | | | | LABORATORY | | + +---------+ + + + | Total | 6.9 | 6.0 - 7.8 g/dL | [facility] | | | Protein | | | [facility] | | | | | | MEDICAL | | | | | | CENTER - | | | | | | LABORATORY | | + +---------+ + + + | Albumin | 2.7 (L) | 3.2 - 5.0 g/dL | [facility] | | | | | | [facility] | | | | | | MEDICAL | | | | | | CENTER - | | | | | | LABORATORY | | + +---------+ + + + | AST | 37 | 10 - 42 U/L | [facility] | | | | | | [facility] | | | | | | MEDICAL | | | | | | CENTER - | | | | | | LABORATORY | | + +---------+ + + + | ALT | 31 | 6 - 45 U/L | [facility] | | | | | | [facility] | | | | | | MEDICAL | | | | | | CENTER - | | | | | | LABORATORY | | + +---------+ + + + | Alkaline | 68 | 40 - 110 U/L | [facility] | | | Phosphatase | | | [facility] | | | | | | MEDICAL | | | | | | CENTER - | | | | | | LABORATORY | | + +---------+ + + + | Globulin | 4.2 (H) | 2.1 - 3.8 g/dL | [facility] | | | | | | [facility] | | | | | | MEDICAL | | | | | | CENTER - | | | | | | LABORATORY | | + +---------+ + + + | Albumin/Marilee | 0.6 (L) | 0.8 - 2.0 | [facility] | | | bulin Ratio | | | [facility] | | | | | | MEDICAL | | | | | | CENTER - | | | | | | LABORATORY | | + +---------+ + + + | Bilirubin, | 0.10 | 0.00 - 0.20 | [facility] | | | Direct | | mg/dl | [facility] | | | | | | [facility]ICAL | | | | | | CENTER - | | | | | | LABORATORY | | + +---------+ + + + + + | Specimen | + + | Blood | + + + + + + + | Performing | Address | City/State/Zipcode | Phone Number | | Organization | | | | + + + + + | [facility] | [address] | [place] | [phone] | | [facility] | | [address] | | | - LABORATORY | | | | + + + + + Magnesium (08/23/2017 3:40 AM PST) + +---------+ + + + | Component | Value | Ref Range | Performed | Pathologist | | | | | At | Signature | + +---------+ + + + | Magnesium | 1.7 (L) | 1.8 - 2.5 mg/dL | [facility] | | | | | | [facility] | | | | | | MEDICAL | | | | | | CENTER - | | | | | | LABORATORY | | + +---------+ + + + + + | Specimen | + + | Blood | + + + + + + + | Performing | Address | City/State/Zipcode | Phone Number | | Organization | | | | + + + + + | [facility] | [address] | [place] | [phone] | | [facility] | | [address] | | | - LABORATORY | | | | + + + + + CBC with Differential (08/23/2017 3:40 AM PST) + + + + + + | Component | Value | Ref Range | Performed | Pathologist | | | | | At | Signature | + + + + + + | White Blood | 12.5 (H) | 4.0 - 11.0 K/uL | [facility] | | | Cells | | | [facility] | | | | | | [facility] | | | | [facility] - | | | | | | LABORATORY | | + + + + + + | Red Blood | 3.92 | 3.70 - 5.20 | [facility] | | | Cells | | M/uL | [facility] | | | | | | [facility] | | | | | | [facility] - | | | | | | LABORATORY | | + + + + + + | Hemoglobin | 10.7 (L) | 11.5 - 16.0 | [facility] | | | | | g/dL | [facility] | | | | | | [facility] | | | | | | [facility] - | | | | | | LABORATORY | | + + + + + + | Hematocrit | 33.6 (L) | 34.0 - 47.0 % | [facility] | | | | | | [facility] | | | | | | [facility] | | | | | | [facility] - | | | | | | LABORATORY | | + + + + + + | MCV | 85.7 | 83.0 - 101.0 fL | [facility] | | | | | | [facility] | [facility] | [facility] | | | | | | [facility] - | | | | | | LABORATORY | | + + + + + + | MCH | 27.4 (L) | 28.0 - 35.0 pg | [facility] | | | | | | [facility] | | | | | | [facility] | | | | | | [facility] - | | | | | | LABORATORY | | + + + + + + | MCHC | 32.0 | 32.0 - 36.0 | [facility] | | | | | g/dL | [facility] | | | | | | [facility] | | | | | | CENTER - | | | | | | LABORATORY | | + + + + + + | RDW-CV | 13.2 | <15.0 % | [facility] | | | | | | [facility] | | | | | | [facility] | | | | | | [facility] - | | | | | | LABORATORY | | + + + + + + | Platelet | 286 | 140 - 440 K/uL | [facility] | | | Count | | | [facility] | | | | | | [facility] | | | | | | [facility] - | | | | | | LABORATORY | | + + + + + + | MPV | 8.3 | fL | [facility] | | | | | | [facility] | | | | | | [facility] | | | | | | [facility] - | | | | | | LABORATORY | | + + + + + + | % | 93.0 (H) | 45.0 - 82.0 % | [facility] | | | Neutrophils | | | [facility] | | | | | | [facility] | | | | | | CENTER - | | | | | | LABORATORY | | + + + + + + | % | 6.0 (L) | 20.0 - 45.0 % | [facility] | | | Lymphocytes | | | [facility] | | | | | | [facility] | | | | | | [facility] - | | | | | | LABORATORY | | + + + + + + | % Monocytes | 0.8 (L) | 4.0 - 12.0 % | [facility] | | | | | | [facility] | | | | | | [facility] | | | | | | [facility] - | | | | | | LABORATORY | | + + + + + + | % | 0.0 | 0.0 - 5.0 % | [facility] | | | Eosinophils | | | [facility] | | | | | | [facility] | | | | | | [facility]ENTER - | | | | | | LABORATORY | | + + + + + + | % Basophils | 0.2 | 0.0 - 1.0 % | [facility] | | | | | | [facility] | | | | | | [facility] | | | | | | [facility] - | | | | | | LABORATORY | | + + + + + + | Absolute | 11.60 (H) | 1.80 - 8.50 | [facility] | | | Neutrophils | | K/uL | [facility] | | | | | | [facility] | | | | | | CENTER - | | | | | | LABORATORY | | + + + + + + | Absolute | 0.70 | 0.60 - 3.20 | [facility] | | | Lymphocytes | | K/uL | [facility] | | | | | | [facility] | | | | | | [facility] - | | | | | | LABORATORY | | + + + + + + | Absolute | 0.10 | 0.00 - 1.00 | [facility] | | | Monocytes | | K/uL | [facility] | | | | | | [facility] | | | | | | CENTER - | | | | | | LABORATORY | | + + + + + + | Absolute | 0.00 | 0.00 - 0.40 | [facility] | | | Eosinophils | | K/uL | [facility] | | | | | | [facility] | | | | | | [facility] - | | | | | | LABORATORY | | + + + + + + | Absolute | 0.00 | 0.00 - 0.10 | [facility] | | | Basophils | | K/uL | [facility] | | | | | | [facility] | | | | | | [facility]ENTER - | | | | | | LABORATORY | | + + + + + + + + | Specimen | + + | Blood | + + + + + + + | Performing | Address | City/State/Zipcode | Phone Number | | Organization | | | | + + + + + | [facility] | [address] | [place] | [phone] | | [facility] | | [address] | | | - LABORATORY | | | | + + + + + Drugs of Abuse, Screen, Urine (08/23/2017 3:40 AM PST) + + + + + + | Component | Value | Ref Range | Performed | Pathologist | | | | | At | Signature | + + + + + + | Amphetamine | Positive (A) | Negative | [facility] | | | Screen, | | | [facility] | | | Urine | | | MEDICAL | | | | | | CENTER - | | | | | | LABORATORY | | + + + + + + | Barbiturate | Negative | Negative | [facility] | | | s Screen, | | | [facility] | | | Urine | | | MEDICAL | | | | | | CENTER - | | | | | | LABORATORY | | + + + + + + | Benzodiazep | Positive (A) | Negative | [facility] | | | matti | | | [facility] | | | Screen, | | | MEDICAL | | | Urine | | | CENTER - | | | | | | LABORATORY | | + + + + + + | Cannabinoid | Negative | Negative | [facility] | | | s Screen, | | | [facility] | | | Urine | | | MEDICAL | | | | | | CENTER - | | | | | | LABORATORY | | + + + + + + | Cocaine | Negative | Negative | [facility] | | | Screen, | | | [facility] | | | Urine | | | MEDICAL | | | | | | CENTER - | | | | | | LABORATORY | | + + + + + + | Methadone | Negative | Negative | [facility] | | | Screen, | | | [facility] | | | Urine | | | MEDICAL | | | | | | CENTER - | | | | | | LABORATORY | | + + + + + + | Opiates | Positive (A) | Negative | [facility] | | | Screen, | | | [facility] | | | Urine | | | MEDICAL | | | | | | CENTER - | | | | | | LABORATORY | | + + + + + + + + | Specimen | + + | Urine - Urine | | specimen obtained by | | clean catch | | procedure (specimen) | + + + + + + + | Performing | Address | City/State/Zipcode | Phone Number | | Organization | | | | + + + + + | [facility] | [address] | [place] | [phone] | | [facility] | | [address] | | | - LABORATORY | | | | + + + + + Basic Metabolic Panel (08/23/2017 3:39 AM PST) + + + + + + | Component | Value | Ref Range | Performed | Pathologist | | | | | At | Signature | + + + + + + | Na | 138Comment: This is an | 136 - 149 | [facility] | | | | appended report. These | mmol/L | [facility] | | | | results have been | | MEDICAL | | | | appended to a previously | | CENTER - | | | | preliminary verified | | LABORATORY | | | | report. | | | | + + + + + + | K | 3.9 | 3.5 - 5.1 | [facility] | | | | | mmol/L | [facility] | | | | | | MEDICAL | | | | | | CENTER - | | | | | | LABORATORY | | + + + + + + | Cl | 103Comment: This is an | 98 - 109 mmol/L | [facility] | | | | appended report. These | | [facility] | | | | results have been | | MEDICAL | | | | appended to a previously | | CENTER - | | | | preliminary verified | | LABORATORY | | | | report. | | | | + + + + + + | CO2 | 29 | 24 - 31 mmol/L | [facility] | | | | | | [facility] | | | | | | MEDICAL | | | | | | CENTER - | | | | | | LABORATORY | | + + + + + + | Anion Gap | 6Comment: This is an | 3 - 16 mmol/L | [facility] | | | | appended report. These | | [facility] | | | | results have been | | MEDICAL | | | | appended to a previously | | CENTER - | | | | preliminary verified | | LABORATORY | | | | report. | | | | + + + + + + | Glucose | 160 (H) | 70 - 109 mg/dL | [facility] | | | | | | [facility] | | | | | | MEDICAL | | | | | | CENTER - | | | | | | LABORATORY | | + + + + + + | BUN | 8 | 7 - 18 mg/dL | [facility] | | | | | | [facility] | | | | | | MEDICAL | | | | | | CENTER - | | | | | | LABORATORY | | + + + + + + | Creatinine | 0.57 (L) | 0.60 - 1.30 | [facility] | | | | | mg/dL | [facility] | | | | | | MEDICAL | | | | | | CENTER - | | | | | | LABORATORY | | + + + + + + | eGFR, | >60Comment: GLOMERULAR | >=60 | [facility] | | | non- | FILTRATION | mL/min/1.73m2 | [facility] | | | [place] | RATE,ESTIMATED | | MEDICAL | | | | mL/min/1.75f9Ijby than | | CENTER - | | | | 60 Chronic kidney | | LABORATORY | | | | disease,if found over a | | | | | | 3-month period.Less than | | | | | | 15 Kidney failureFor | | | | | | | | | | | | Americans,multiply the | | | | | | calculated GFR by 1.21. | | | | | | | | | | + + + + + + | Calcium | 9.1Comment: This is an | 8.3 - 10.5 | [facility] | | | | appended report. These | mg/dL | [facility] | | | | results have been | | MEDICAL | | | | appended to a previously | | CENTER - | | | | preliminary verified | | LABORATORY | | | | report. | | | | + + + + + + | BUN/Creatin | 14.0 | | [facility] | | | ine Ratio | | | [facility] | | | | | | MEDICAL | | | | | | CENTER - | | | | | | LABORATORY | | + + + + + + + + | Specimen | + + | Blood | + + + + + + + | Performing | Address | City/State/Zipcode | Phone Number | | Organization | | | | + + + + + | [facility] | [address] | [place] | [phone] | | [facility] | | [address] | | | - LABORATORY | | | | + + + + + Culture, Blood (08/22/2017 8:45 PM PST) + + + + + + | Component | Value | Ref Range | Performed | Pathologist | | | | | At | Signature | + + + + + + | Culture | No growth after 5 days | | [facility] | | | | incubation. | | [facility] | | | | | | MEDICAL | | | | | | CENTER - | | | | | | LABORATORY | | + + + + + + + + | Specimen | + + | Blood - Peripheral | | blood specimen | | (specimen) | + + + + + + + | Performing | Address | City/State/Zipcode | Phone Number | | Organization | | | | + + + + + | [facility] | [address] | [place] | [phone] | | [facility] | | [address] | | | - LABORATORY | | | | + + + + + Culture, Blood (08/22/2017 8:31 PM PST) + + + + + + | Component | Value | Ref Range | Performed | Pathologist | | | | | At | Signature | + + + + + + | Culture | No growth after 5 days | | [facility] | | | | incubation. | | [facility] | | | | | | MEDICAL | | | | | | CENTER - | | | | | | LABORATORY | | + + + + + + + + | Specimen | + + | Blood - Swab of line | | insertion site | | (specimen) | + + + + + + + | Performing | Address | City/State/Zipcode | Phone Number | | Organization | | | | + + + + + | [facility] | [address] | [place] | [phone] | | [facility] | | [address] | | | - LABORATORY | | | | + + + + + Culture, Anaerobic (08/22/2017 6:10 PM PST) + + + + + + | Component | Value | Ref Range | Performed | Pathologist | | | | | At | Signature | + + + + + + | Culture | No anaerobes isolated. | | [facility] | | | | | | [facility] | | | | | | MEDICAL | | | | | | CENTER - | | | | | | LABORATORY | | + + + + + + + + | Specimen | + + | Wound - Entire upper | | arm (body | | structure) | + + + + + + + | Performing | Address | City/State/Zipcode | Phone Number | | Organization | | | | + + + + + | [facility] | [address] | [place] | [phone] | | [facility] | | [address] | | | - LABORATORY | | | | + + + + + Culture, Wound, Smear (08/22/2017 6:10 PM PST) + + + + + + | Component | Value | Ref Range | Performed | Pathologist | | | | | At | Signature | + + + + + + | Culture | 3+ Streptococcus | | [facility] | | | | intermediusComment: | | . [facility] | | | | Streptococcus is usually | | MEDICAL | | | | sensitive to | | CENTER - | | | | amoxicillin, cephalexin, | | LABORATORY | | | | and cefazolin. Usually | | | | | | resistant to | | | | | | ciprofloxacin, | | | | | | levofloxacin and | | | | | | trimeth/sulfa. | | | | + + + + + + | Gram Stain | 4+ White Blood Cells | | [facility] | | | Result | | | [facility] | | | | | | MEDICAL | | | | | | CENTER - | | | | | | LABORATORY | | + + + + + + | Gram Stain | 4+ Gram positive cocci | | [facility] | | | Result | | | [facility] | | | | | | MEDICAL | | | | | | CENTER - | | | | | | LABORATORY | | + + + + + + | Gram Stain | 2+ Gram positive bacilli | | [facility] | | | Result | | | [facility] | | | | | | MEDICAL | | | | | | CENTER - | | | | | | LABORATORY | | + + + + + + + + | Specimen | + + | Wound - Entire upper | | arm (body | | structure) | + + + + + + + | Performing | Address | City/State/Zipcode | Phone Number | | Organization | | | | + + + + + | [facility] | [address] | [place] | [phone] | | [facility] | | [address] | | | - LABORATORY | | | | + + + + + XR Chest AP Portable (08/22/2017 5:59 PM PST) + + | Specimen | + + | | + + + + + | Narrative | Performed At | + + + | CLINICAL INFORMATION: Central Venous Catheter Placement . | [facility] | | COMPARISON: None available. FINDINGS: Portable frontal chest | | | radiographs. Left internal jugular central venous catheter with | | | the tip at the superior vena cava. Lungs: No focal airspace | | | disease, pleural effusion, or pneumothorax. Heart/mediastinum: | | | Cardiac silhouette is of normal size. Central pulmonary vasculature | | | has a normal appearance. Bones: No acute osseous abnormality | | | appreciated. IMPRESSION - Left internal jugular central venous | | | catheter terminating at the superior vena cava. No pneumothorax. | | | Dictated and Signed by: Ambrosio Albarado MD Electronically | | | signed: 08/22/2017 6:06 PM | | + + + + + | Procedure Note | + + | Dangelo, Tam Results In - 08/22/2017 6:09 PM PST | | CLINICAL INFORMATION: Central Venous Catheter Placement . | | | | COMPARISON: None available. | | | | FINDINGS: | | Portable frontal chest radiographs. | | | | Left internal jugular central venous catheter with the tip at the superior vena | | cava. | | | | Lungs: No focal airspace disease, pleural effusion, or pneumothorax. | | | | Heart/mediastinum: Cardiac silhouette is of normal size. Central pulmonary | | vasculature has a normal appearance. | | | | Bones: No acute osseous abnormality appreciated. | | | | IMPRESSION - | | Left internal jugular central venous catheter terminating at the superior vena | | cava. | | | | No pneumothorax. | | | | Dictated and Signed by: Ambrosio Albarado MD | | Electronically signed: 08/22/2017 6:06 PM | + + + +---------+ + + | Performing | Address | City/State/Zipcode | Phone Number | | Organization | | | | + +---------+ + + | [facility] | | | | + +---------+ + + CT Upper Extremity w Contrast Right (08/22/2017 2:08 PM PST) + + | Specimen | + + | | + + + + + | Narrative | Performed At | + + + | ENHANCED CT RIGHT UPPER EXTREMITY 08/22/2017 2:08 PM CLINICAL | [facility] | | HISTORY: large area of swelling anterior right shoulder | | | COMPARISON: None available TECHNIQUE: Axial images are performed | | | through the right upper arm following the uneventful intravenous | | | administration of 85 mL Omnipaque-350 contrast. Multiplanar | | | reformations are also performed. FINDINGS: There is a large, | | | likely rim enhancing, but fairly thin-walled collection of | | | homogeneously hypoattenuating material within the right deltoid | | | muscle, extending from the level of the greater tuberosity of the | | | humerus inferiorly to the mid diaphyseal level, and measuring up to | | | 12.2 x 4.4 x 6.5 cm in size. There is some internal septation | | | within the mid to superior aspects of the collection. No internal | | | gas or foreign body is evident. Stranding of the overlying | | | subcutaneous fat is present. The musculature is unremarkable | | | elsewhere. No associated osseous abnormality is visible. The | | | glenohumeral joint is maintained, demonstrating early marginal | | | osteophyte formation inferiorly. There is mild to moderate capsular | | | and osseous hypertrophy about the acromioclavicular joint, which is | | | normally aligned. Emphysematous changes are present in the imaged | | | right lung, along with bronchial wall thickening. Mildly prominent | | | lymph nodes are scattered throughout the right axilla and | | | supraclavicular region. The imaged vasculature is widely patent. | | | IMPRESSION - 1. LARGE COLLECTION OF HYPOATTENUATING, LIKELY RIM | | | ENHANCING MATERIAL WITHIN THE DELTOID MUSCLE BELLY, CONSISTENT WITH | | | ABSCESS. NO ASSOCIATED OSSEOUS ABNORMALITY IS VISIBLE. MILDLY | | | PROMINENT AXILLARY AND SUPRACLAVICULAR LYMPH NODES ARE LIKELY | | | REACTIVE. 2. EMPHYSEMA AND PROBABLE INFECTIOUS OR INFLAMMATORY | | | BRONCHIAL WALL THICKENING. 3. ACROMIOCLAVICULAR AND GLENOHUMERAL | | | JOINT ARTHROSIS. Images were provided for interpretation on | | | August 22, 2017 at 1410 hours. Results were finalized at 1430 | | | hours. Dictated and Signed by: Dangelo Fritz MD Electronically | | | signed: 08/22/2017 2:27 PM | | + + + + + | Procedure Note | + + | Dangelo, Rad Results In - 08/22/2017 2:[address] RIGHT UPPER EXTREMITY | | 08/22/2017 2:08 PM CLINICAL HISTORY: large area of swelling anterior right shoulder | | COMPARISON: None available TECHNIQUE: Axial images are performed through the right upper | | arm following theuneventful intravenous administration of 85 mL Omnipaque-350 | | contrast.Multiplanar reformations are also performed. FINDINGS: There is a large, | | likely rim enhancing, but fairly thin-walledcollection of homogeneously hypoattenuating | | material within the right deltoidmuscle, extending from the level of the greater | | tuberosity of the humerusinferiorly to the mid diaphyseal level, and measuring up to | | 12.2 x 4.4 x 6.5 cmin size. There is some internal septation within the mid to superior | | aspects ofthe collection. No internal gas or foreign body is evident. Stranding of | | theoverlying subcutaneous fat is present. The musculature is unremarkableelsewhere. No | | associated osseous abnormality is visible. The glenohumeraljoint is maintained, | | demonstrating early marginal osteophyte formationinferiorly. There is mild to moderate | | capsular and osseous hypertrophy aboutthe acromioclavicular joint, which is normally | | aligned. Emphysematous changesare present in the imaged right lung, along with | | bronchial wall thickening. Mildly prominent lymph nodes are scattered throughout the | | right axilla andsupraclavicular region. The imaged vasculature is widely patent. | | IMPRESSION - 1. LARGE COLLECTION OF HYPOATTENUATING, LIKELY RIM ENHANCING MATERIAL | | WITHINTHE DELTOID MUSCLE BELLY, CONSISTENT WITH ABSCESS. NO ASSOCIATED | | OSSEOUSABNORMALITY IS VISIBLE. MILDLY PROMINENT AXILLARY AND SUPRACLAVICULAR LYMPHNODES | | ARE LIKELY REACTIVE.2. EMPHYSEMA AND PROBABLE INFECTIOUS OR INFLAMMATORY BRONCHIAL | | WALL THICKENING.3. ACROMIOCLAVICULAR AND GLENOHUMERAL JOINT ARTHROSIS.Images were | | provided for interpretation on August 22, 2017 at 1410 hours. Results were finalized at | | 1430 hours.Dictated and Signed by: Dangelo Fritz MD Electronically signed: 08/22/2017 | | 2:27 PM | |IMPRESSION - | |1. LARGE COLLECTION OF HYPOATTENUATING, LIKELY RIM ENHANCING MATERIAL WITHIN | |THE DELTOID MUSCLE BELLY, CONSISTENT WITH ABSCESS. NO ASSOCIATED OSSEOUS | |ABNORMALITY IS VISIBLE. MILDLY PROMINENT AXILLARY AND SUPRACLAVICULAR LYMPH | |NODES ARE LIKELY REACTIVE. | | | |2. EMPHYSEMA AND PROBABLE INFECTIOUS OR INFLAMMATORY BRONCHIAL WALL THICKENING. | | | |3. ACROMIOCLAVICULAR AND GLENOHUMERAL JOINT ARTHROSIS. | | | |Images were provided for interpretation on August 22, 2017 at 1410 hours. | |Results were finalized at 1430 hours. | | | |Dictated and Signed by: Dangelo Fritz MD | | Electronically signed: 08/22/2017 2:27 PM | + + + +---------+ + + | Performing | Address | City/State/Zipcode | Phone Number | | Organization | | | | + +---------+ + + | [facility] | | | | + +---------+ + + CK Total (08/22/2017 1:47 PM PST) + +-------+ + + + | Component | Value | Ref Range | Performed | Pathologist | | | | | At | Signature | + +-------+ + + + | CK TOTAL | 49 | 22 - 269 U/L | [facility] | | | | | | [facility] | | | | | | MEDICAL | | | | | | CENTER - | | | | | | LABORATORY | | + +-------+ + + + + + | Specimen | + + | Blood | + + + + + + + | Performing | Address | City/State/Zipcode | Phone Number | | Organization | | | | + + + + + | [facility] | [address] | [place] | [phone] | | [facility] | | [address] | | | - LABORATORY | | | | + + + + + Basic Metabolic Panel (08/22/2017 1:47 PM PST) + + + + + + | Component | Value | Ref Range | Performed | Pathologist | | | | | At | Signature | + + + + + + | Na | 136 | 136 - 149 | [facility] | | | | | mmol/L | [facility] | | | | | | MEDICAL | | | | | | CENTER - | | | | | | LABORATORY | | + + + + + + | K | 4.1 | 3.5 - 5.1 | [facility] | | | | | mmol/L | [facility] | | | | | | MEDICAL | | | | | | CENTER - | | | | | | LABORATORY | | + + + + + + | Cl | 103 | 98 - 109 mmol/L | [facility] | | | | | | [facility] | | | | | | MEDICAL | | | | | | CENTER - | | | | | | LABORATORY | | + + + + + + | CO2 | 24 | 24 - 31 mmol/L | [facility] | | | | | | [facility] | | | | | | MEDICAL | | | | | | CENTER - | | | | | | LABORATORY | | + + + + + + | Anion Gap | 9 | 3 - 16 mmol/L | [facility] | | | | | | [facility] | | | | | | MEDICAL | | | | | | CENTER - | | | | | | LABORATORY | | + + + + + + | Glucose | 78 | 70 - 109 mg/dL | [facility] | | | | | | [facility] | | | | | | MEDICAL | | | | | | CENTER - | | | | | | LABORATORY | | + + + + + + | BUN | 7 | 7 - 18 mg/dL | [facility] | | | | | | [facility] | | | | | | MEDICAL | | | | | | CENTER - | | | | | | LABORATORY | | + + + + + + | Creatinine | 0.56 (L) | 0.60 - 1.30 | [facility] | | | | | mg/dL | [facility] | | | | | | MEDICAL | | | | | | CENTER - | | | | | | LABORATORY | | + + + + + + | eGFR, | >60Comment: GLOMERULAR | >=60 | [facility] | | | non- | FILTRATION | mL/min/1.73m2 | [facility] | | | [place] | RATE,ESTIMATED | | MEDICAL | | | | mL/min/1.40e4Fmxs than | | CENTER - | | | | 60 Chronic kidney | | LABORATORY | | | | disease,if found over a | | | | | | 3-month period.Less than | | | | | | 15 Kidney failureFor | | | | | | | | | | | | Americans,multiply the | | | | | | calculated GFR by 1.21. | | | | | | | | | | + + + + + + | Calcium | 9.2 | 8.3 - 10.5 | [facility] | | | | | mg/dL | [facility] | | | | | | MEDICAL | | | | | | CENTER - | | | | | | LABORATORY | | + + + + + + | BUN/Creatin | 12.5 | | [facility] | | | ine Ratio | | | [facility] | | | | | | MEDICAL | | | | | | CENTER - | | | | | | LABORATORY | | + + + + + + + + | Specimen | + + | Blood | + + + + + + + | Performing | Address | City/State/Zipcode | Phone Number | | Organization | | | | + + + + + | [facility] | [address] | [place] | [phone] | | [facility] | | [address] | | | - LABORATORY | | | | + + + + + CBC with Differential (08/22/2017 1:47 PM PST) + + + + + + | Component | Value | Ref Range | Performed | Pathologist | | | | | At | Signature | + + + + + + | White Blood | 18.3 (H) | 4.0 - 11.0 K/uL | [facility] | | | Cells | | | [facility] | | | | | | MEDICAL | | | | | | CENTER - | | | | | | LABORATORY | | + + + + + + | Red Blood | 4.00 | 3.70 - 5.20 | [facility] | | | Cells | | M/uL | [facility] | | | | | | MEDICAL | | | | | | CENTER - | | | | | | LABORATORY | | + + + + + + | Hemoglobin | 11.4 (L) | 11.5 - 16.0 | [facility] | | | | | g/dL | [facility] | | | | | | MEDICAL | | | | | | CENTER - | | | | | | LABORATORY | | + + + + + + | Hematocrit | 34.1 | 34.0 - 47.0 % | [facility] | | | | | | [facility] | | | | | | MEDICAL | | | | | | CENTER - | | | | | | LABORATORY | | + + + + + + | MCV | 85.3 | 83.0 - 101.0 fL | [facility] | | | | | | [facility] | | | | | | MEDICAL | | | | | | CENTER - | | | | | | LABORATORY | | + + + + + + | MCH | 28.4 | 28.0 - 35.0 pg | [facility] | | | | | | [facility] | | | | | | MEDICAL | | | | | | CENTER - | | | | | | LABORATORY | | + + + + + + | MCHC | 33.4 | 32.0 - 36.0 | [facility] | | | | | g/dL | [facility] | | | | | | MEDICAL | | | | | | CENTER - | | | | | | LABORATORY | | + + + + + + | RDW-CV | 13.2 | <15.0 % | [facility] | | | | | | [facility] | | | | | | MEDICAL | | | | | | CENTER - | | | | | | LABORATORY | | + + + + + + | Platelet | 290 | 140 - 440 K/uL | [facility] | | | Count | | | [facility] | | | | | | MEDICAL | | | | | | CENTER - | | | | | | LABORATORY | | + + + + + + | MPV | 8.2 | fL | [facility] | | | | | | [facility] | | | | | | MEDICAL | | | | | | CENTER - | | | | | | LABORATORY | | + + + + + + | % | 73.6 | 45.0 - 82.0 % | [facility] | | | Neutrophils | | | [facility] | | | | | | MEDICAL | | | | | | CENTER - | | | | | | LABORATORY | | + + + + + + | % | 14.8 (L) | 20.0 - 45.0 % | [facility] | | | Lymphocytes | | | [facility] | | | | | | MEDICAL | | | | | | CENTER - | | | | | | LABORATORY | | + + + + + + | % Monocytes | 7.3 | 4.0 - 12.0 % | [facility] | | | | | | [facility] | | | | | | MEDICAL | | | | | | CENTER - | | | | | | LABORATORY | | + + + + + + | % | 3.3 | 0.0 - 5.0 % | [facility] | | | Eosinophils | | | [facility] | | | | | | MEDICAL | | | | | | CENTER - | | | | | | LABORATORY | | + + + + + + | % Basophils | 1.0 | 0.0 - 1.0 % | [facility] | | | | | | [facility] | | | | | | MEDICAL | | | | | | CENTER - | | | | | | LABORATORY | | + + + + + + | Absolute | 13.40 (H) | 1.80 - 8.50 | [facility] | | | Neutrophils | | K/uL | [facility] | | | | | | MEDICAL | | | | | | CENTER - | | | | | | LABORATORY | | + + + + + + | Absolute | 2.70 | 0.60 - 3.20 | [facility] | | | Lymphocytes | | K/uL | [facility] | | | | | | MEDICAL | | | | | | CENTER - | | | | | | LABORATORY | | + + + + + + | Absolute | 1.30 (H) | 0.00 - 1.00 | [facility] | | | Monocytes | | K/uL | [facility] | | | | | | MEDICAL | | | | | | CENTER - | | | | | | LABORATORY | | + + + + + + | Absolute | 0.60 (H) | 0.00 - 0.40 | [facility] | | | Eosinophils | | K/uL | [facility] | | | | | | MEDICAL | | | | | | CENTER - | | | | | | LABORATORY | | + + + + + + | Absolute | 0.20 (H) | 0.00 - 0.10 | [facility] | | | Basophils | | K/uL | [facility] | | | | | | MEDICAL | | | | | | CENTER - | | | | | | LABORATORY | | + + + + + + + + | Specimen | + + | Blood | + + + + + + + | Performing | Address | City/State/Zipcode | Phone Number | | Organization | | | | + + + + + | [facility] | [address] | [place] | [phone] | | [facility] | | [address] | | | - LABORATORY | | | | + + + + + documented in this encounter Visit Diagnoses Not on filedocumented in this encounter Admitting Diagnoses + + | Diagnosis | + + | Abscess of deltoid region Cellulitis and abscess of upper arm and forearm | + + documented in this encounter Administered Medications + +---------+ +------+-------+------+ | Medication Order | MAR | Action | Dose | Rate | Site | | | Action | Date | | | | + +---------+ +------+-------+------+ | cefTRIAXone (ROCEPHIN) 2 g in | New Bag | 08/28/19 | 2 g | 100 | | | sodium chloride 0.9% 50 mL IVPB | | 18 9:30 | | mL/hr | | | 2 g, Intravenous, Administer over | | AM PST | | | | | 30 Minutes, EVERY 24 HOURS | | | | | | | (Daily), First dose on Sun | | | | | | | 08/25/17 at 1030, Activate system | | | | | | | and mix before use., Indications: | | | | | | | Cellulitis | | | | | | + +---------+ +------+-------+------+ +---------+ +-----+-------+---+ | New Bag | 08/27/19 | 2 g | 100 | | | | 18 9:56 | | mL/hr | | | | AM PST | | | | +---------+ +-----+-------+---+ | New Bag | 08/26/19 | 2 g | 100 | | | | 18 9:00 | | mL/hr | | | | AM PST | | | | +---------+ +-----+-------+---+ + +---+ | | | + +---+ | diphenhydrAMINE (BENADRYL) 12.5 | | | mg/5 mL liquid 25 mg 25 mg, | | | Oral, EVERY 4 HOURS PRN, Itching, | | | Starting [facility] 08/22/17 at 2021, | | | Oral route is preferred., | | + +---+ | | | + +---+ | diphenhydrAMINE (BENADRYL) | | | injection 12.5 mg 12.5 mg, | | | Intravenous, EVERY 4 HOURS PRN, | | | Itching, Starting [facility] 08/22/17 at | | | 2021, Oral route is preferred., | | + +---+ | | | + +---+ | diphenhydrAMINE (BENADRYL) | | | tablet 25 mg 25 mg, Oral, EVERY | | | 4 HOURS PRN, Itching, Starting | | | [facility] 08/22/17 at 2021, Oral route | | | is preferred., | | + +---+ | | | + +---+ + +---------+ +---+---+---+ | lactated ringers (LR) infusion | New Bag | 08/26/19 | | | | | at 10-100 mL/hr, Intravenous, | | 18 3:56 | | | | | CONTINUOUS, Starting 08/26/17 | | PM PST | | | | | at 1530, TKO., | | | | | | + +---------+ +---+---+---+ +---+---+ | | | +---+---+ + +-------+ +------+---+---+ | melatonin tablet 3 mg 3 mg, | Given | 08/24/19 | 3 mg | | | | Oral, NIGHTLY PRN, Insomnia, | | 18 9:24 | | | | | Starting May 08/22/17 at 2021 | | PM PST | | | | + +-------+ +------+---+---+ +---+---+ | | | +---+---+ + +---------+ +---------+---+ + | nicotine (NICODERM) 21 mg/24 hr | Patch | 08/28/19 | 1 patch | | Deltoid- | | 1 patch 1 patch, Transdermal, | Applied | 18 9:31 | | | Left | | DAILY, First dose on 08/25/17 | | AM PST | | | | | at 1300 | | | | | | + +---------+ +---------+---+ + + + +---------+---+ + | Patch Applied | 08/27/19 | 1 patch | | Back-Rig | | | 18 10:02 | | | ht Upper | | | AM PST | | | | + + +---------+---+ + | Patch Applied | 08/26/19 | 1 patch | | Arm-Left | | | 18 8:43 | | | Upper | | | AM PST | | | | + + +---------+---+ + +---+---+ | | | +---+---+ + +-------+ +-------+---+---+ | oxyCODONE (ROXICODONE) tablet | Given | 08/28/19 | 20 mg | | | | 5-20 mg 5-20 mg, Oral, EVERY 3 | | 18 9:36 | | | | | HOURS PRN, Pain, Starting Fri | | AM PST | | | | | 08/23/17 at 1832, First dose must | | | | | | | be the lowest dose, can titrate | | | | | | | to effective dose by repeat of | | | | | | | lowest dose every 60 minutes prn | | | | | | | pain, may not exceed maximum dose | | | | | | | ordered per interval. Use [employer]ero | | | | | | | Sedation Scale., | | | | | | + +-------+ +-------+---+---+ +-------+ +-------+---+---+ | Given | 08/28/19 | 20 mg | | | | | 18 6:20 | | | | | | AM PST | | | | +-------+ +-------+---+---+ | Given | 08/28/19 | 20 mg | | | | | 18 2:55 | | | | | | AM PST | | | | +-------+ +-------+---+---+ +---+---+ | | | +---+---+ documented in this encounter
--- OUTSIDE RECORDS SUMMARY | ~2020-03-20 | XMS | Encounter Summary ---
Demographics + + + | Address | [address] | | | [place] [address] | + + + | Home Phone | | + + + | Preferred Language | Unknown | + + + | Marital Status | | + + + | Hinduism Affiliation | 1013 | + + + | Race | Unknown | + + + | Ethnic Group | Not or | + + + Author + + + | Author | [facility] | | | and [place] | + + + | Organization | [facility] | | | [...] Team Providers + +------+ + | Care Agricultural Research Director Name | Role | Phone | [...] +--------+--------+ + + + + Encounter Details +--------+ + + + + | Date | Type | Department | Care Team | Description | +--------+ + + + + | 08/22/ | Hospital | [facility] | Madisyn Ya | Abscess of deltoid | | 2018 - | Encounter | [facility] | MD Juliann [address] | region (Primary Dx); | | | | [address] | [address] [place], | Heroin abuse; | | 08/28/ | | [place] [address] | [place] [address] | Chronic hepatitis C | | 2018 | | [phone] | [phone] | without hepatic coma | | | | | | (HCC); Substance | | | | | Akash Briceño, | abuse | | | | | [address] | | | | | | [place], [place] | | | | | | [address] Chemo, | | | | | | Micah Suazo MD [address] | | | | | | [address] [place] | | | | | | [place] [address] | | | | | | [phone] | | | | | | | | +--------+ + + + [...] + + + | Blood Pressure | 123/83 | 08/28/2017 8:47 AM | | | | | PST | | + + + + + | Pulse | 72 | 08/28/2017 8:47 AM | | | | | PST | | + + + + + | Temperature | 35.8 C (96.4 F) | 08/28/2017 8:47 AM | | | | | PST | | + + + + + | Respiratory Rate | 16 | 08/28/2017 8:47 AM | | | | | PST | | + + + + + | Oxygen Saturation | 99% | 08/28/2017 8:47 AM | | | | | PST [...] controlled. Hospital Course: Pt was admitted to [facility] for a incision and drainage of right [...] is for her to be discharged to [facility] for continued recovery and rehabilitation. She will [...] SpO2: 96% 94% 94% 99% Weight: Height: @[id number]@ Recent Results (from the past 24 hour(s)) [...] PA-C 08/28/17. This not was dictated using [employer] Voice recognition system. There may be minor [...] pain medication is c ompleted continue with evzb-cdf-rmlepjm anti-inflammatories as needed for right shoulder yevgeniy [...] mg of acetaminophen (Tylenol) per day. Hydrocodone-acetaminophen (Sanborn ) and Oxycodone-acetaminophen (Percocet) have 325 mg acetaminophen per tablet. Regular stren gth acetaminophen is 325 mg per tablet. Extra [...] might be different fro m the original. [facility] Hospitalist Progress Note Jessica Damon is [...] as outlined above. Andres Capone 08/27/2017 19:23 [facility] Micha Valladares MD - 08/27/2017 8:03 AM [...] Danielson MD - 08/25/2017 4:45 PM PST [facility] Hospitalist Progress Note Jessica Damon is [...] as outlined above. Hira Mullins 08/25/2017 16:45 [facility] Portions of this chart may have been created with [employer] voice recognition software. Occasi onal wrong-word or [...] 8:35 This note was dictated using the [employer] voice recognition system. Minor errors in grammar may have occurred Hira Danielson MD - 08/24/2017 3:04 PM PST [facility] Hospitalist Progress Note Jessica Damon is [...] as outlined above. Hira Mullins 08/24/2017 15:04 [facility] Portions of this chart may have been created with [employer] voice recognition software. Occasi onal wrong-word or sound-alike substitutions may have occurred due to the inherent galdamez itations of voice recognition software. Please read the chart carefully and recognize, using context, where these substitutions have occurred Manjula Case, LINH - 08/24/2017 1:29 PM PSTVascular access team [...] ood well. Thank you for this referral. Jitendra, Yonathan Pisano PA-C - 08/24/2017 8:53 AM PSTFormatting of this note might be different from the or iginal. Name:Jessica Shaw Date: 08/24/2017 SUBJECTIVE: Stable; notes increased pain [...] 8:53 This note was dictated using the [employer] voice recognition system. Minor errors in grammar may have occurred Maciel Jin, PharmD - 08/24/2017 8:32 AM PSTFormatting of [...] Procedure Component Value Units Date/Time Culture, Blood [[id number]] (Normal) Collected: 08/22/172044 Order Status: Completed Lab Status: Preliminary result Updated: 08/23/17 0851 Specimen: Blood from Peripheral Blood Culture No growth: Monitored continually by instrument for 5 days Culture, Blood [[id number]] (Normal) Collected: 08/22/172030 Order Status: Completed Lab Status: Preliminary result Updated: 08/23/17 0851 Specimen: Blood from Line Culture No growth: Monitored continually by instrument for 5 days Culture, Wound, Smear, w/Anaerobe [[id number]] Collected: 08/22/171809 Order Status: Sent Lab Status: In process Updated: 08/22/171809 Specimen: Wound from Arm Narrative: The following orders were created for panel order Culture, Wound, Smear, w/Anaerobe. Procedure Abnormality Status --------- ------ Culture, Wound, Smear[[id number]] Preliminary result Culture, Anaerobic[[id number]] In process Please view results for these tests on the individual orders. Culture, Wound, Smear [[id number]] Collected: 08/22/171809 Order Status: Completed Lab Status: Preliminary result Updated: 08/23/17 0847 Specimen: Wound from Arm Culture No growth to date Gram Stain Result 4+ White Blood Cells 4+ Gram positive cocci 2+ Gram positive bacilli Culture, Anaerobic [[id number]] Collected: 08/22/171809 Order Status: Resulted Lab Status: [...] given on 08/22/17 @ 1700, followed by nugyễn ntenance vancomycin 1000 mg IVPB q12h 2. [...] strength, and directions X Pharmacy list names: [facility] [place] X Outside Information Vaccines up to [...] performed and electronically signed by Carly David, Drift Miner 19:59 Reviewed by Timo Vaca PharmMikaela 08/23/2017 20:20 oYnathan Ham PA-C - 08/23/2017 5:36 PM PST [...] 75 Temp 98.6 - 97.5 - Resp 17 18 18 18 Weight - - - - Height - - - - SPO2 95 94 93 95 BMI - - - - I/O last 3 completed shifts: In: 2450 [P.O.:650; I.V.:1450; IV Piggyback:350] Out: 3150 [Urine:3050; Other:100] Vitals: 08/23/17 1159 08/23/17 1245 08/23/17 1600 08/23/17 1722 BP: 118/68 108/58 Pulse: 75 79 72 75 Resp: Temp: 37 C (98.6 F) 36.4 C [...] 17:36 This note was dictated using the [employer] voice recognition system. Minor errors in grammar may have occurred aford, Dexter Wade PharmD - 08/23/2017 11:04 AM PSTFormatting of this note might be different from the ary finney. VANCOMYCIN PER PHARMACY PROTOCOL: Subjective/Objective: Jessica Damon [...] Intake/Output Summary (Last 24 hours) at 08/24/17 0547 Last data filed at 01/26/18 2126 Gross per 24 hour Intake 800 ml Output 1450 ml Net -650 ml Temp: [36.4 C (97.5 F)-37 C (98.6 F)] 37 C (98.6 F) Pulse: [66-79] 72 Resp: [16-18] 16 BP: (103-123)/(58-68) 104/61 Micro/Cultures/Diagnostics: Microbiology Results (Last 14 Days by Collected Date with Culture/Sensitivity) Procedure Component Value Units Date/Time Culture, Blood [[id number]] (Normal) Collected: 08/22/172044 Order Status: Completed Lab Status: Preliminary result Updated: 08/23/17 0851 Specimen: Blood from Peripheral Blood Culture No growth: Monitored continually by instrument for 5 days Culture, Blood [[id number]] (Normal) Collected: 08/22/172030 Order Status: Completed Lab Status: Preliminary result Updated: 08/23/17 0851 Specimen: Blood from Line Culture No growth: Monitored continually by instrument for 5 days Culture, Wound, Smear, w/Anaerobe [[id number]] Collected: 08/22/171809 Order Status: Sent Lab Status: In process Updated: 08/22/171809 Specimen: Wound from Arm Narrative: The following orders were created for panel order Culture, Wound, Smear, w/Anaerobe. Procedure Abnormality Status --------- ------ Culture, Wound, Smear[[id number]] Preliminary result Culture, Anaerobic[[id number]] In process Please view results for these tests on the individual orders. Culture, Wound, Smear [[id number]] Collected: 08/22/171809 Order Status: Completed Lab Status: Preliminary result Updated: 08/23/17 0847 Specimen: Wound from Arm Culture No growth to date Gram Stain Result 4+ White Blood Cells 4+ Gram positive cocci 2+ Gram positive bacilli Culture, Anaerobic [[id number]] Collected: 08/22/171809 Order Status: Resulted Lab Status: [...] signed by: Annmarie Blanco RN 08/22/2017 22:33 Deepika Cristina , PharmD - 08/22/2017 4:12 PM PSTFormatting [...] Procedure Component Value Units Date/Time Culture, Blood [[id number]] Order Status: Sent Lab Status: No result Specimen: Blood from Line Culture, Blood [[id number]] Order Status: Sent Lab Status: No result [...] was s een in the ER in [place], [place] on 08/18/17 and received a prescription for Keflex 500 mg qid which she began to take. Unfortunately, she noted increasing pain and redness over the pas t 36 hours and now has come to [facility] for evaluation and care. She last [...] might be different fr om the original. [place] HOSPITALIST CONSULT NOTE Patient: Jessica Damon : 1965: Age: 52 y.o. MedRec: [id number] Admission date: 08/22/2017 Hospital day # : [...] by mouth 3 times daily. Historical Provid ani, ALLERGIES: Allergies Allergen Reactions Sulfa Antibiotics Other (See Comments) "lip swelling" CURRENT MEDICATIONS: Current Facility-Administered Medications Medication Dose Route Frequency Provider Last Rate Last Dose piperacillin-tazobactam (ZOSYN) 3.375 g in sodium chloride 0.9% 100 mL IVPB 3.375 g In travenous 3 times per day Norman Alfaro MD [Sep] vancomycin 1 g in sodium chloride 0.9% 250 mL IVPB 1 g Intravenous Once Amina wilfredo Rosales PharmD [SEP Hold] vancomycin per pharmacy [...] signed by: Norman Alfaro MD 08/22/2017 16:06 [facility] Portions of this chart may have been created with [employer] voice recognition software. Occasi onal wrong-word or [...] might be diffe rent from the original. [facility] Jessica Damon Emergency Department Encounter Note [address] [place] [address] PCP:No Physician on file [phone] CHIEF COMPLAINT: [...] were reviewed along with EMS notes and half-way record s if applicable. (See chart for [...] 08/28/2017. Pt will have adequate pain management 1/30/18 Patient will have no injuries or falls [...] to right arm after MD removed GEOFFREY adeel, medicated with PO Oxycodone PRN. Indep endent in the room with ambulation. Dressing to right upper arm c/d/i. Pt denies nausea, shira erating a regular diet well. Voiding on her own with no difficulty. PICC line to left upper arm removed per MD orders, pressure was held for 10 min, no s/s of bleeding noted. Pt will go home today. lan of Jsoh - Radha Rodriguez RN - 08/28/2017 10:22 AM PSTDischarge Planning: Discharge order obtained. Per provider Ryland, would like patient seen in one week wit Dr. Ayala. CM contacted Dr. Ayala's office and obtained appointment for 09/03/17 at 1145. CM added to follow up in [facility] to show on patient's discharge paperwork. In addition , CM to patient room to discuss follow up. Patient informed of date/time for follow up with Dr. Ayala. Patient agreeable and denies any additional questions, complaints, or anuj rns regarding anticipated plan to discharge home today. Disposition: Home, no needs. Electronically signed by: Radha George RN 08/28/2017 10:24 lan sukhwinder Moreno - Chelita Nelson RN - 08/28/2017 4:12 [...] on general diet, tolerating well. lan of Care - Angelina , Jake Davidson RN - 08/27/2017 6:13 PM PSTProblem: Patient [...] calm, and cooperative throughout shift. lan of Josh - Chelita Wiggins RN - 08/27/2017 4:28 AM PSTProblem: Patient [...] on general diet, tolerating well. lan of Josh Valencia Carmona RN - 08/26/2017 4:47 PM PSTProblem: Patient [...] Awaiting for pt return. p Note - Micha Posada MD - 08/26/2017 4:42 PM PST [address] [address] OPERATIVE REPORT MICHA AYALA MD Patient: JESSICA DAMON Admitting: MICHA AYALA MR #: [id number] LOC: PT TYPE: Adm Date: 08/22/2017 : 1965 DATE OF SURGERY AND DATE OF DICTATION: 08/26/2017 OPERATING SURGEON: Micha Ayala MD DURABILITY TECHNICIAN: TITO Maldonado. ANESTHESIOLOGIST: Lam Granados MD PREOPERATIVE [...] was seen in the emergency room at [place], [place], where she was given a prescription for Keflex. In spite of this, she noted increasing pain and redness and ultimately was brought to the emergency room at [facility] where she was found to have a [...] 08/26/2017 16:42:33 Transcribed on 08/26/2017 17:21:13 by [facility] job# [id number] Confirmation #: [id number] p Note - Devon ball, Micha Suazo MD - 08/26/2017 4:42 PM PSTOp note dictation # [id number]. nterval H&P Note (unlinked) - Micha Mayer MD - 08/26/2017 3:43 PM PSTSURGICAL INTERIM [...] signed by: Micha Ayala MD, 08/26/2017 15:43 [facility] Urvashi Fernandez - 08/26/2017 7:48 AM PSTFaxed referra l to [facility] in [place]. Electronically signed by: Urvashi Sutton 08/26/2017 7:48 lan of Josh - Yordan Wiggins RN - 08/26/2017 5:21 AM PSTProblem: Patient [...] 20 mg PRN. Urinating well to the [facility] e commode. Last bowel movement was 08/24/2017. Patient had no injuries or falls during this s hift. Patient was NPO after midnight. lan of Josh - Bakari Benoit RN - 08/25/2017 5:08 [...] admitted for Abscess of deltoid region [L02.419]. Physiotherapist'S Assistant visit was part of routine rounding. Spiritual Evaluation: Patient was resting in a bed and welcomed spiritual care. She is from [facility] to return home. She is awaiting her dogs and her job there. 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 She is a Muslim and has attended [employer] in the past. Spiritual Interventions: Enrichment Assistant attended, offered care, listened actively and explored [...] for sleep with good results. lan of Bakari Lomas RN - 08/24/2017 3:38 PM PSTProblem: Patient [...] for pain with good relief. lan of Josh - Yonathan Gutierrez RRT - 08/23/2017 5:39 PM PSTProblem: Patient [...] done well on room air. lan of Bakari Martins RN - 08/23/2017 4:07 PM PSTProblem: Patient [...] well. Voiding with out difficulty. lan of [place] [facility] - Edelmira Vo LICSW - 08/23/2017 12:49 PM PSTDischarge Planning Goal: Pt to be discharged in a safe manner Summary /Intervention: Met with patient regarding discharge plans. Pt is sitting up in bed, presents as lucia natarajan. Pt was driven to the ER by [...] recently connected with the [facility]. She has been connected with Suboxone therapy, she is also working with N.A.and group therapy through the [facility] Pt lacks primary care, rewriter provided options for primary care. Lockstitch Pocket Setter to see who is available in [place]. Telephone call to [facility] ( [phone]) [facility] has a nurse practictoner available, Kennedy Ruiz. He (like all their providers) require medical information to review prior to accepting patients. Their fax number is [phone]) Plan: Continue to assess Pt intends to [...] by: LISA Castro 08/23/2017 17:03 lan of Caterina Angulo RRT - 08/23/2017 5:43 AM PSTProblem: Patient Care [...] 93 % on room air lan of Josh - Annmarie Adhikari RN - 08/23/2017 2:59 [...] Micha Moore MD - 08/22/2017 6:00 PM [facility] ER [address] [facility] [address] OPERATIVE REPORT MICHA AYALA MD Patient: JESSICA DAMON Admitting: MICHA AYALA MR #: [id number] LOC: PT TYPE: Adm Date: 08/22/2017 : 1965 DATE OF SURGERY AND DATE OF DICTATION: 08/22/2017. OPERATING SURGEON: Micha Ayala MD. DURABILITY TECHNICIAN: TITO Maldonado. ANESTHESIOLOGIST: Lam Granados MD. PREOPERATIVE DIAGNOSIS: Right shoulder intradeltoid abscess. POSTOPERATIVE DIAGNOSIS: Right shoulder intradeltoid abscess. TITLE OF OPERATION: Incision, drainage, and debridement of intradeltoid abscess, right shoulder, with wound VAC application. HISTORY AND REASON FOR SURGERY: Jessica Damon is a 52-year-old female who resides in [place], [place]. She has a habit of skin popping with heroin. She was performing heroin injections into her right shoulder about a week ago and then developed some redness in her shoulder. She was seen in an emergency room in [place], [place], and was given a prescription for Keflex. Unfortunately, she noted increasing pain and redness over the past 36 hours and came to [facility] emergency room today for evaluation and care. [...] Transcribed on 08/22/2017 18:30:55 by kate job# [id number] Confirmation #: [id number] p Note - Devon son, Micha Suazo MD - 08/22/2017 6:00 PM PSTOp note dictation # [id number]. documented in this encounter Plan of Treatment [...] | + +--------+ + + + | REPAIR ROTATOR CUFF | | 08/22/2017 | Abscess of deltoid | | | W/ OR W/O | | 4:41 PM | region [L02.419] | | | ACROMIOPLASTY | | PST | | | + [...] + | [facility] | [address] | [place] | [phone] | | [facility] | | [address] | | | - LABORATORY | | [...] (H) | 7 - 18 mg/dL | [facility] | | | | | | [facility] | | | | | | MEDICAL | | | | | | CENTER - | | | | | | LABORATORY | | + + + + + + | Creatinine | 0.91 | 0.60 - 1.30 | [facility] | | | | | mg/dL | [facility] | | | | | | MEDICAL | | | | | | CENTER - | | | | | | LABORATORY | | + + + + + + | eGFR, | >60Comment: GLOMERULAR | >=60 | [facility] | | | non- | FILTRATION | mL/min/1.73m2 | [facility] | | | Yemeni | RATE,ESTIMATED | | MEDICAL | | | | mL/min/1.83k3Kpgs than | | CENTER - | | [...] | | | | | mg/dL | [facility] | | | | | [...] [address] | [place] | [phone] | | [facility] | | [address] | | | - LABORATORY | | [...] | + + + + + | [address] | [address] | [place] | [phone] | | [facility] | | [address] | | | - LABORATORY | | [...] [address] | [place] | [phone] | | [facility] | | [address] | | | - LABORATORY | | [...] + | Dangelo, Rad Results In - 08/24/2017 12:22 PM PST [...] | 0.67 | 0.60 - 1.30 | [facility] | | | | | mg/dL | [facility] | | | | | | MEDICAL | | | | | | CENTER - | | | | | | LABORATORY | | + + + + + + | eGFR, | >60Comment: GLOMERULAR | >=60 | [facility] | | | non- | FILTRATION | mL/min/1.73m2 | [facility] | | | Yemeni | RATE,ESTIMATED | | MEDICAL | | | | mL/min/1.12c5Ngdf than | | CENTER - | | [...] [address] | [place] | [phone] | | [facility] | | [address] | | | - LABORATORY | | [...] | Last Dose | | | [facility] | | | | | | MEDICAL | | | | | | CENTER - | | | | | | LABORATORY | | + +-------+ + + + | Time of | | | [facility] | | | Last Dose | | | [facility] | | | | | | MEDICAL | | | | | | CENTER - | | | | | | LABORATORY | | + +-------+ + + + | Vancomycin | 11.2 | <=20.0 ug/mL | [facility] | | | Trough | | | [facility] | | [...] ST. | [address] | [place], [place] | [phone] | | [facility] | | [address] | | | - LABORATORY | | [...] (H) | 4.0 - 11.0 K/uL | [facility] | | | Cells | | | [facility] | | [...] [address] | [place] | [phone] | | [facility] | | [address] | | | - LABORATORY | | [...] test | | | | | | ([id number]). | | | | + + + + + + + + | Specimen | + + | Blood | + + + + + | Narrative | Performed At | + + + | Performed at: [address] [address], | REFERENCE LAB | | [place], [place] [id number] Product Director: Jordan Currie MD, Phone: | [facility] | | [phone] | | + + + + + + + + | Performing | Address | City/State/Zipcode | Phone Number | | Organization | | | | + + + + + | REFERENCE LAB | [address] | [place], [place] | [phone] | | [facility] | [address] | [address] | | + + + + + [...] | | Direct | | mg/dl | [facility] | | | | [...] + + | [facility] | [address] | [place] | [phone] | | [facility] | | [address] | | | - LABORATORY | | | | + + + + + Magnesium (08/23/2017 3:40 AM PST) + +---------+ + + + | Component | Value | Ref Range | Performed | Pathologist | | | | | At | Signature | + +---------+ + + + | Magnesium | 1.7 (L) | 1.8 - 2.5 mg/dL | [facility] | | | | [...] [address] | [place] | [phone] | | [facility] | | [address] | | | - LABORATORY | | [...] | 0.00 | 0.00 - 0.10 | [facility] | | | Basophils | | K/uL | [facility] | | | | | [...] [address] | [place] | [phone] | | [facility] | | [address] | | | - LABORATORY | | [...] [address] | [place] | [phone] | | [facility] | | [address] | | | - LABORATORY | | [...] appended report. These | mmol/L | [facility] | | [...] | appended report. These | | [facility] | | | [...] | appended report. These | | [facility] | | | [...] 8 | 7 - 18 mg/dL | [facility] | | | | | | [facility] | | | | | | MEDICAL | | | | | | CENTER - | | | | | | LABORATORY | | + + + + + + | Creatinine | 0.57 (L) | 0.60 - 1.30 | [facility] | | | | | mg/dL | [facility] | | | | | | MEDICAL | | | | | | CENTER - | | | | | | LABORATORY | | + + + + + + | eGFR, | >60Comment: GLOMERULAR | >=60 | [facility] | | | non- | FILTRATION | mL/min/1.73m2 | [facility] | | | Yemeni | RATE,ESTIMATED | | MEDICAL | | | | mL/min/1.65a6Nsav than | | CENTER - | | [...] + | [facility] [facility] | [address] | [place] | [phone] | | [facility] | | [address] | | | - LABORATORY | | [...] | | | | incubation. | | [facility] | | | [...] [address] | [place] | [phone] | | [facility] | | [address] | | | - LABORATORY | | [...] + + | [facility] | [address] | [place] | [phone] | | [facility] | | [address] | | | - LABORATORY | | | | + + + + + Culture, Anaerobic (08/22/2017 6:10 PM PST) + + + + + + | Component | Value | Ref Range | Performed | Pathologist | | | | | At | Signature | + + + + + + | Culture | No anaerobes isolated. | | [facility] | | | | | [...] [address] | [place] | [phone] | | [facility] | | [address] | | | - LABORATORY | | [...] | | | | intermediusComment: | | [facility] | | | | Streptococcus is usually [...] ST. | [address] | [place] | [phone] | | [facility] | | [address] | | | - LABORATORY | | [...] | Dangelo, Rad Results In - 08/22/2017 6:09 PM PST [...] 49 | 22 - 269 U/L | [facility] | | | | | | [facility] [...] [address] | [place] | [phone] | | [facility] | | [address] | | | - LABORATORY | | [...] 7 | 7 - 18 mg/dL | [facility] | | | | | | [facility] | | | | | | MEDICAL | | | | | | CENTER - | | | | | | LABORATORY | | + + + + + + | Creatinine | 0.56 (L) | 0.60 - 1.30 | [facility] | | | | | mg/dL | [facility] | | | | | | MEDICAL | | | | | | CENTER - | | | | | | LABORATORY | | + + + + + + | eGFR, | >60Comment: GLOMERULAR | >=60 | [facility] | | | non- | FILTRATION | mL/min/1.73m2 | [facility] | | | Yemeni | RATE,ESTIMATED | | MEDICAL | | | | mL/min/1.33n9Hrmd than | | CENTER - | | [...] | | | | mg/dL | [facility] | | | | | | MEDICAL | | | | | | CENTER - | | | | | | LABORATORY | | + + + + + + | BUN/Creatin | 12.5 | | [facility] | | | ine Ratio | | | [facility] | [...] + | [facility] | [address] | [place] | [phone] | | [facility] | | [address] | | | - LABORATORY | | [...] 0.20 (H) | 0.00 - 0.10 | [facility] | [...] + | [facility] | [address] | [place] | [phone] | | [facility] | | [address] | | | - LABORATORY | | | | + + + + + documented in this encounter Visit Diagnoses + + | Diagnosis | + + | Abscess of deltoid region - Primary Cellulitis and abscess of upper arm and forearm | + + | Heroin abuse (HCC) | + + | Chronic hepatitis C without hepatic coma (HCC) | + + | Substance abuse (HCC) Other, mixed, or unspecified nondependent drug abuse, | | unspecified | + + | Hepatitis C Unspecified viral hepatitis C without hepatic coma | + + documented in this encounter Admitting Diagnoses + + [...] PST | | | | +---------+ +-----+-------+---+ +---+---+ | | | +---+---+ + +-------+ +--------+---+---+ | clindamycin (CLEOCIN) capsule | Given | 08/22/19 | 450 mg | | | | 450 mg 450 mg, Oral, ONCE, Mya | | 18 12:54 | | | | | 08/22/17 at 1125, For 1 dose, | | PM PST | | | | | Indications: SEPSIS OF UNKNOWN | | | | | | | ETIOLOGY | | | | | | + +-------+ +--------+---+---+ + +---+ | | | + +---+ | diphenhydrAMINE (BENADRYL) 12.5 | | | mg/5 mL liquid 25 mg 25 mg, | | | Oral, EVERY 4 HOURS PRN, Itching, | | | Starting May 08/22/17 at 2021, | | | Oral route is preferred., | | + +---+ | | | + +---+ | diphenhydrAMINE (BENADRYL) | | | injection 12.5 mg 12.5 mg, | | | Intravenous, EVERY 4 HOURS PRN, | | | Itching, Starting [facility] 08/22/17 at | | | 2021, Oral route is preferred., | | + +---+ | | | + +---+ | diphenhydrAMINE (BENADRYL) | | | tablet 25 mg 25 mg, Oral, EVERY | | | 4 HOURS PRN, Itching, Starting | | | May 08/22/17 at 2021, Oral route | | | is preferred., | | + +---+ | | | + +---+ + +-------+ +--------+---+---+ | fentaNYL (PF) injection 25 mcg | Given | 08/22/19 | 25 mcg | | | | 25 mcg, Intravenous, EVERY 5 MIN | | 18 7:26 | | | | | PRN, Pain, Starting May 08/22/17 | | PM PST | | | | | at 1746, Maximum total dose 200 | | | | | | | mcg. PACU IV Narcotic Priority: | | | | | | | Only use fentanyl for immediate | | | | | | | post-op pain (one dose) or | | | | | | | breakthrough pain when any other | | | | | | | IV narcotics ordered have been | | | | | | | ineffective (if ordered). If | | | | | | | both morphine and hydromorphone | | | | | | | are ordered, use morphine first, | | | | | | | and use hydromorphone if morphine | | | | | | | ineffective., Recovery/Phase I | | | | | | + +-------+ +--------+---+---+ +-------+ +--------+---+---+ | Given | 08/22/19 | 25 mcg | | | | | 18 6:47 | | | | | | PM PST | | | | +-------+ +--------+---+---+ | Given | 08/22/19 | 25 mcg | | | | | 18 6:30 | | | | | | PM PST | | | | +-------+ +--------+---+---+ +---+---+ | | | +---+---+ + +-------+ +--------+---+---+ | fentaNYL (PF) injection 25 mcg | Given | 08/26/19 | 25 mcg | | | | 25 mcg, Intravenous, EVERY 5 MIN | | 18 5:30 | | | | | PRN, Pain, Starting 08/26/17 | | PM PST | | | | | at 1631, Maximum total dose 200 | | | | | | | mcg. PACU IV Narcotic Priority: | | | | | | | Only use fentanyl for immediate | | | | | | | post-op pain (one dose) or | | | | | | | breakthrough pain when any other | | | | | | | IV narcotics ordered have been | | | | | | | ineffective (if ordered). If | | | | | | | both morphine and hydromorphone | | | | | | | are ordered, use morphine first, | | | | | | | and use hydromorphone if morphine | | | | | | | ineffective., Recovery/Phase I | | | | | | + +-------+ +--------+---+---+ +-------+ +--------+---+---+ | Given | 08/26/19 | 25 mcg | | | | | 18 5:25 | | | | | | PM PST | | | | +-------+ +--------+---+---+ | Given | 08/26/19 | 25 mcg | | | | | 18 5:20 | | | | | | PM PST | | | | +-------+ +--------+---+---+ +---+---+ | | | +---+---+ + +-------+ + +---+---+ | HYDROcodone-acetaminophen | Given | 08/22/19 | 1 tablet | | | | (NORCO) 5-325 mg per tablet 1 | | 18 12:54 | | | | | tablet 1 tablet, Oral, ONCE, May | | PM PST | | | | | 08/22/17 at 1125, For 1 dose | | | | | | + +-------+ + +---+---+ +---+---+ | | | +---+---+ + +-------+ +--------+---+---+ | HYDROmorphone (DILAUDID) | Given | 08/26/19 | 0.5 mg | | | | injection 0.2-0.5 mg 0.2-0.5 mg, | | 18 6:02 | | | | | Intravenous, EVERY 10 MIN PRN, | | PM PST | | | | | Pain, Starting 08/26/17 at | | | | | | | 1631, Maximum total dose 4 mg. | | | | | | | PACU IV Narcotic Priority: Only | | | | | | | use fentanyl for immediate | | | | | | | post-op pain (one dose) or | | | | | | | breakthrough pain when any other | | | | | | | IV narcotics ordered have been | | | | | | | ineffective (if ordered). If | | | | | | | both morphine and hydromorphone | | | | | | | are ordered, use morphine first, | | | | | | | and use hydromorphone if morphine | | | | | | | ineffective., Recovery/Phase I | | | | | | + +-------+ +--------+---+---+ +-------+ +--------+---+---+ | Given | 08/26/19 | 0.5 mg | | | | | 18 5:57 | | | | | | PM PST | | | | +-------+ +--------+---+---+ | Given | 08/26/19 | 0.5 mg | | | | | 18 5:25 | | | | | | PM PST | | | | +-------+ +--------+---+---+ +---+---+ | | | +---+---+ + +-------+ +--------+---+---+ | iohexol (OMNIPAQUE 350) 350 | Given | 08/22/19 | 85 mLs | | | | mg/mL injection 85 mL 85 mL, | | 18 2:08 | | | | | Intravenous, ONCE PRN, Other, for | | PM PST | | | | | CT contrast study, Starting May | | | | | | | 08/22/17 at 1408, For 1 dose, | | | | | | | Radiology | | | | | | + +-------+ +--------+---+---+ +---+---+ | | | +---+---+ + +-------+ +-------+---+---+ | ketorolac (TORADOL) injection | Given | 08/24/19 | 30 mg | | | | 30 mg 30 mg, Intravenous, ONCE, | | 18 9:05 | | | | | 08/24/17 at 0830, For 1 dose | | AM PST | | | | + +-------+ +-------+---+---+ +---+---+ | | | +---+---+ + +---------+ +---+---+---+ | lactated ringers (LR) [...] 9:24 | | | | | Starting [facility] 08/22/17 at 2 | | PM PST | | | | + +-------+ +------+---+---+ +---+---+ | | | +---+---+ + +-------+ +------+---+---+ | morphine injection 6 mg 6 mg, | Given | 08/22/19 | 6 mg | | | | Intravenous, ONCE, May 08/22/17 at | | 18 2:19 | | | | | 1330, For 1 dose | | PM PST | | | [...] | oxyCODONE (ROXICODONE) tablet | Given | 08/23/19 | 10 mg | | | | 2.5-10 mg 2.5-10 mg, Oral, EVERY | | 18 5:06 | | | | | 3 HOURS PRN, Pain, Starting May | | PM PST | | | | | 08/22/17 at 2021, First dose must | | | | [...] | | | | | Sedation Scale., Post-op/Phase | | | | | | | II | | | | | | + +-------+ +-------+---+---+ +-------+ +-------+---+---+ | Given | 08/23/19 | 10 mg | | | | | 18 11:00 | | | | | | AM PST | | | | +-------+ +-------+---+---+ | Given | 08/23/19 | 10 mg | | | | | 18 8:06 | | | | | | AM PST | | | | +-------+ +-------+---+---+ +---+---+ | | | +---+---+ + +-------+ [...] +-------+ +-------+---+---+ +---+---+ | | | +---+---+ + +---------+ +---------+-------+---+ | piperacillin-tazobactam (ZOSYN) | New Bag | 08/22/19 | 3.375 g | 200 | | | 3.375 g in sodium chloride 0.9% | | 18 3:07 | | mL/hr | | | 100 mL IVPB 3.375 g, | | PM PST | | | | | Intravenous, Administer over 0.5 | | | | | | | Hours, ONCE, May 08/22/17 at 1435, | | | | | | | For 1 dose, Activate system and | | | | | | | mix before use., Indications: | | | | | | | SKIN AND SOFT TISSUE ABSCESS | | | | | | + +---------+ +---------+-------+---+ +---+---+ | | | +---+---+ + +---------+ +---------+ +---+ | piperacillin-tazobactam (ZOSYN) | New Bag | 08/25/19 | 3.375 g | 25 mL/hr | | | 3.375 g in sodium chloride 0.9% | | 18 6:29 | | | | | 100 mL IVPB 3.375 g, | | AM PST | | | | | Intravenous, Administer over 4 | | | | | | | Hours, EVERY 8 HOURS (3 times per | | | | | | | day), First dose (after last | | | | | | | modification) on [facility] 08/22/17 at | | | | | | | 2330, Activate system and mix | | | | | | | before use., Indications: SKIN | | | | | | | AND SOFT TISSUE ABSCESS | | | | | | + +---------+ +---------+ +---+ +---------+ +---------+ +---+ | New Bag | 08/24/19 | 3.375 g | 25 mL/hr | | | | 18 9:24 | | | | | | PM PST | | | | +---------+ +---------+ +---+ | New Bag | 08/24/19 | 3.375 g | 25 mL/hr | | | | 18 2:27 | | | | | | PM PST | | | | +---------+ +---------+ +---+ +---+---+ | | | +---+---+ + +---------+ +-----+--------+---+ | vancomycin 1 g in sodium | New Bag | 08/25/19 | 1 g | 166.7 | | | chloride 0.9% 250 mL IVPB 1 g, | | 18 4:59 | | mL/hr | | | Intravenous, Administer over 90 | | AM PST | | | | | Minutes, EVERY 12 HOURS INTERVAL, | | | | | | | First dose on May 08/22/17 at | | | | | | | 1700, Activate system and mix | | | | | | | before use., Indications: SKIN | | | | | | | AND SOFT TISSUE ABSCESS | | | | | | + +---------+ +-----+--------+---+ +---------+ +-----+--------+---+ | New Bag | 08/24/19 | 1 g | 166.7 | | | | 18 6:36 | | mL/hr | | | | PM PST | | | | +---------+ +-----+--------+---+ | New Bag | 08/24/19 | 1 g | 166.7 | | | | 18 5:30 | | mL/hr | | | | AM PST | | | | +---------+ +-----+--------+---+ +---+---+ | | | +---+---+ documented in this encounter
--- OUTSIDE RECORDS SUMMARY | ~2020-03-20 | XMS | Encounter Summary ---
Demographics + + + | Address | [address] | | | [place] [address] | + + + | Home Phone | | + + + | Preferred Language | Unknown | + + + | Marital Status | | + + + | Judaism Affiliation | 1013 | + + + | Race | Unknown | + + + | Ethnic Group | Not or | + + + Author + + + | Author | [facility] | | | and [place] | + + + | Organization | [facility] | | | and [...] Team Providers + +------+ + | Care Metrology Specialist Name | Role | Phone | + +------+ + | Miguel Gomez | PCP | | + +------+ + Reason for Referral Evaluate & Treat (Routine) +--------+ + + + + + | Status | Reason | Specialty | Diagnoses / | Referred By | Referred To | | | | | Procedures | Contact | Contact | +--------+ + + + + + | Closed | Specialty | Radiology - | Diagnoses | | [facility] | | | Services | Diagnostic | Chronic | Marialuisa, | [facility] | | | Required | Ultrasound | hepatitis C | [place] | [facility] | | | | | without | LITHOGRAPHIC PLATE MA[address]ER [address] | [address] | | | | | hepatic coma | [address] | | | | | (HCC) | [address] | [place], [place] | | | | | Procedures | [place], | [address] | | | | | [place], ABDOMEN | [place] [address] | Phone: | | | | | LIMITED | Phone: | [phone] | | | | | | [phone] | Fax: | | | | | | Fax: | [phone] | | | | | | [phone] | | +--------+ + + + + + Reason for Visit +--------+--------+ + | Reason | Onset | Comments | | | Date | | +--------+--------+ + | LABS | 11/27/ | imaging | | | 2018 | | +--------+--------+ + Encounter Details +--------+ + + + + | Date | Type | Department | Care Team | Description | +--------+ + + + + | 11/27/ | Telephone | [facility] | [facility], | LABS (imaging) | | 2019 | | GASTROENTEROLOGY | [address] | | | | | [address] | [address] | | | | | [address] [place], [place] | [place], [place] | | | | | [address] | [address] | | | | | [phone] | | | +--------+ + + + [...] | | | + +---+---+---+ + + +---------+ + | Alcohol Use | Drinks/Week | oz/Week | Comments | + + +---------+ + | Yes | | | rarely | + + +---------+ + + + + | Sex Assigned at | Date Recorded | | | | + + + | Not on file | | + + + documented as of this encounter Functional Status + + + [...] + + documented as of this encounter Miscellaneous Notes Telephone Encounter - Bouchra Wick CMA - 12/01/2018 10:40 AM PDTLeft message that la b orders faxed to [facility] and ultrasound orders to [facility].Electronically s igned by Bouchra Wick CMA at 12/01/2018 10:40 AM PDTTelephone Encounter - Zaki Wick CMA - 12/01/2018 7:32 AM PDTFaxed lab orders to [facility] and ultrasound order to [facility]. elephone Encounter - Bouchra Wick CMA - 11/27/2018 12:52 PM PDTLeft message that labs and imaging have been ordered. Where would she like these orders sent?Electronically s igned by Bouchra Wick CMA at 11/27/2018 12:54 PM PDTTelephone Encounter - Ashley Norris - 11/27/2018 11:11 AM PDTPatient called and was wondering about getting her US and la bs done. Spoke with Ammy who is going to speak with Fabi to find out if labs are supposed to be ordered and she will call the patient back. Please call her at [phone] ally signed by Cintia Norris at 11/27/2018 11:13 AM PDTdocumented in this encounter Plan of Treatment + + +--------+ + + | Name | Type | Priori | Associated Diagnoses | Order Schedule | | | | ty | | | + + +--------+ + + | Referral ABDOMINAL | Outpatient | Routin | Chronic hepatitis | Ordered: 11/27/2018 | | [facility] | Referral | e | C without hepatic | | | | | | coma (HCC) | | + + +--------+ + + documented as of this encounter Visit Diagnoses + + | Diagnosis | + + | Chronic hepatitis C without hepatic coma (HCC) - Primary | + + documented in this encounter"
--- OUTSIDE RECORDS SUMMARY | ~2020-03-20 | XMS | Encounter Summary ---
Demographics + + + | Address | [address] | | | [place] [address] | + + + | Home Phone | | + + + | Preferred Language | Unknown | + + + | Marital Status | | + + + | Hoahaoism Affiliation | 1013 | + + + | Race | Unknown | + + + | Ethnic Group | Not or | + + + Author + + + | Author | [facility] | | | and [place] | + + + | Organization | [facility] | | | and [...] Team Providers + +------+ + | Care Raw Juice Weigher Name | Role | Phone | + +------+ + | Miguel Gomez | PCP | | + +------+ + Reason for Visit +--------+--------+ + | Reason | Onset | Comments | | | Date | | +--------+--------+ + | LABS | 12/31/ | | | | 2019 | | +--------+--------+ + Encounter Details +--------+ + + + + | Date | Type | Department | Care Team | Description | +--------+ + + + + | 12/31/ | Telephone | [facility] [place] | [facility], | LABS | | 2019 | | GASTROENTEROLOGY | [address] | | | | | [address] | [address] | | | | | [address] [place], [place] | [place], [place] | | | | | [address] | [address] | | | | | [phone] | | | +--------+ + + + [...] Telephone Encounter - Bouchra Wick CMA - 12/31/2018 11:48 AM PDTLeft message that we received those labs results that were ordered by PCP and Fabi is needing more labs ordered. These have been faxed to [facility]. elephone Encounter - Josep Leung - 12/31/2018 11:18 AM PDT Name of Caller: Leslie Boyer Name of Patient: Leslie Boyer Reason for call: Patient called and wanted to know if we have received her labs that she mcbride d a few days ago at [facility]. Informed the patient that we have not receiv ed them. Patient going to contact them again to see if they can fax to our department. Luba rocha wanted to know if the labs that she had there will be good and so she doesn't have to rep eat labs at [facility] ? Routing clinical staff. Once dept received labs will give to clinical staff to review. Provider/Nurse: Marialuisa/ Call back number: [phone] documented in this encou nter Plan of Treatment Not on filedocumented as of this encounter Visit Diagnoses Not on filedocumented in this encounter"
--- OUTSIDE RECORDS SUMMARY | ~2020-03-20 | XMS | Encounter Summary ---
Demographics + + + | Address | [address] | | | [place] [address] | + + + | Home Phone | | + + + | Preferred Language | Unknown | + + + | Marital Status | | + + + | Spiritism Affiliation | 1013 | + + + | Race | Unknown | + + + | Ethnic Group | Not or | + + + Author + + + | Author | [facility] | | | and [place] | + + + | Organization | [facility] | | | and [...] Team Providers + +------+ + | Care Inspector Cold Working Name | Role | Phone | + [...] | Telephone | [facility] [place] | [facility], | LABS | | 2019 | | GASTROENTEROLOGY | [address] | | | | | [address] | [address] | | | | | [address] [place], [place] | [place], [place] | | | | | [address] | [address] | | | | | [phone] | | | +--------+ + + + [...] Encounter - Bouchra Wick CMA - 12/31/2018 12:50 PM PDTNotified patient clay t lab orders have been faxed to [facility] elephone Encounter - Sita Ochoa - 12/31/2018 12:00 PM PDTPa tient returned call to Ammy regarding lab orders. Per patient "she would like those orders to be sent to [facility] instead of [facility] in [place]" . Please advise, patient can be reached at [phone] signed by Sita Ochoa at 12/31/2018 12:02 PM PDTdocumented in this encounter Plan of Treatment Not on filedocumented as of this encounter Visit Diagnoses Not on filedocumented in this encounter
--- OUTSIDE RECORDS SUMMARY | ~2020-03-20 | XMS | Encounter Summary ---
Demographics + + + | Address | [address] | | | [place] [address] | + + + | Home Phone | | + + + | Preferred Language | Unknown | + + + | Marital Status | | + + + | Anabaptism Affiliation | 1013 | + + + | Race | Unknown | + + + | Ethnic Group | Not or | + + + Author + + + | Author | [facility] | | | and [place] | + + + | Organization | [facility] | | | [...] Team Providers + +------+ + | Care Loan Adviser Name | Role | Phone | + [...] Description | +--------+---------+ + + + | 08/22/ | Surgery | [facility]ET[facility] OLIVAR[facility] | Micha Ayala | I&D of Right | | 2017 | | [facility] | MD Abel [address] | Shoulder Abscess and | | | | [address] | [place] | Wound Vac Placement | | | | [place] | [address] | | | | | [phone] | | | | | | [phone] | | | +--------+---------+ + + + [...] + + + | Blood Pressure | 118/90 | 08/22/2017 6:15 PM | | | | | PST | | + + + + + | Pulse | 79 | 08/22/2017 6:15 PM | | | | | PST | | + + + + + | Temperature | 36.4 C (97.5 F) | 08/22/2017 5:54 PM | | | | | PST | | + + + + + | Respiratory Rate | 13 | 08/22/2017 6:15 PM | | | | | PST | | + + + + + | Oxygen Saturation | 96% | 08/22/2017 6:15 PM | | | | | PST | | + + + + + | Inhaled Oxygen | - | - | | | Concentration | | | | + + + + + | Weight | 65.8 kg (145 lb) | 08/22/2017 11:03 AM | | | [...] controlled. Hospital Course: Pt was admitted to [facility] for a incision and drainage of right [...] is for her to be discharged to [facility] for continued recovery and rehabilitation. She will [...] SpO2: 96% 94% 94% 99% Weight: Height: @[id number]@ Recent Results (from the past 24 hour(s)) [...] PA-C 08/28/17. This not was dictated using [employer] [place] Voice recognition system. There may be minor [...] pain medication is c ompleted continue with vqje-sgm-ijhpndl anti-inflammatories as needed for right shoulder yevgeniy [...] mg of acetaminophen (Tylenol) per day. Hydrocodone-acetaminophen (Racine ) and Oxycodone-acetaminophen (Percocet) have 325 mg acetaminophen per tablet. Regular [facility] acetaminophen is 325 mg per tablet. Extra [...] 3 days after discharge, contact the doc helder's office. documented in this encounter Medications at [...] might be different fro m the original. [facility] Hospitalist Progress Note Jessica Damon is [...] atleast 2 weeks after removal of drai alfred Anthony d/w Infectious disease Pharmacy tomorrow. 2. [...] as outlined above. Andres Capone 08/27/2017 19:23 [facility] Micha Valladares MD - 08/27/2017 8:03 AM [...] switch to oral antibiotics. Micha Ayala MD onia Sosa RN - 08/26/2017 6:42 PM PSTPt just arrived, to 310 post surgery. Vital signs stable. Alert and Oriented x 4. Pt pain score 7, will medicate. GEOFFREY drain with T elfa and Tegaderm. Sanguinous drainage, dressing has scant amounts of sanguinous drainage. Hira Danielson MD - 08/25/2017 4:45 PM PST [facility] Hospitalist Progress Note Jessica Damon is [...] as outlined above. Hira Mullins 08/25/2017 16:45 [facility] Portions of this chart may have been created with [employer] [place] voice recognition software. Occasi onal wrong-word or [...] 8:35 This note was dictated using the [employer] [place] voice recognition system. Minor errors in grammar may have occurred Hira Danielson MD - 08/24/2017 3:04 PM PST [facility] Hospitalist Progress Note Jessica Damon is [...] as outlined above. Hira Mullins 08/24/2017 15:04 [facility] Portions of this chart may have been created with [employer] [place] voice recognition software. Occasi onal wrong-word or [...] ood well. Thank you for this referral. Yonathna Ham PA-C - 08/24/2017 8:53 AM PSTFormatting of this note might be different from the or iginal. Name:Jessica Damon Todays Date: 08/24/2017 SUBJECTIVE: Stable; notes [...] 8:53 This note was dictated using the [employer] [place] voice recognition system. Minor errors in grammar [...] Procedure Component Value Units Date/Time Culture, Blood [[id number]] (Normal) Collected: 08/22/172044 Order Status: Completed Lab Status: Preliminary result Updated: 08/23/17850 Specimen: Blood from Peripheral Blood Culture No growth: Monitored continually by instrument for 5 days Culture, Blood [[id number]] (Normal) Collected: 08/22/172030 Order Status: Completed Lab Status: Preliminary result Updated: 08/23/1751 Specimen: Blood from Line Culture No growth: Monitored continually by instrument for 5 days Culture, Wound, Smear, w/Anaerobe [[id number]] Collected: 08/22/171809 Order Status: Sent Lab Status: In process Updated: 08/22/171809 Specimen: Wound from Arm Narrative: The following orders were created for panel order Culture, Wound, Smear, w/Anaerobe. Procedure Abnormality Status --------- ------ Culture, Wound, Smear[[id number]] Preliminary result Culture, Anaerobic[[id number]] In process Please view results for these tests on the individual orders. Culture, Wound, Smear [[id number]] Collected: 08/22/171809 Order Status: Completed Lab Status: Preliminary result Updated: 08/23/1747 Specimen: Wound from Arm Culture No growth to date Gram Stain Result 4+ White Blood Cells 4+ Gram positive cocci 2+ Gram positive bacilli Culture, Anaerobic [[id number]] Collected: 08/22/171809 Order Status: Resulted Lab Status: [...] strength, and directions X Pharmacy list names: [facility], [place] X Outside Information Vaccines up to [...] performed and electronically signed by Carly David, Riding Teacher 19:59 Reviewed by Timo Vaca PharmD 08/23/2017 [...] Pulse: [phone] Resp: 18 18 Temp: 37 C (98.6 F) 36.4 [...] 17:36 This note was dictated using the Media[employer] [place] voice recognition system. Minor errors in grammar [...] Procedure Component Value Units Date/Time Culture, Blood [[id number]] (Normal) Collected: 08/22/175 Order Status: Completed Lab Status: Preliminary result Updated: 08/23/17 0851 Specimen: Blood from Peripheral Blood Culture No growth: Monitored continually by instrument for 5 days Culture, Blood [[id number]] (Normal) Collected: 08/22/172030 Order Status: Completed Lab Status: Preliminary result Updated: 08/23/17 0851 Specimen: Blood from Line Culture No growth: Monitored continually by instrument for 5 days Culture, Wound, Smear, w/Anaerobe [[id number]] Collected: 08/22/171809 Order Status: Sent Lab Status: In process Updated: 08/22/171809 Specimen: Wound from Arm Narrative: The following orders were created for panel order Culture, Wound, Smear, w/Anaerobe. Procedure Abnormality Status --------- ------ Culture, Wound, Smear[[id number]] Preliminary result Culture, Anaerobic[[id number]] In process Please view results for these tests on the individual orders. Culture, Wound, Smear [[id number]] Collected: 08/22/171809 Order Status: Completed Lab Status: Preliminary result Updated: 08/23/17 0847 Specimen: Wound from Arm Culture No growth to date Gram Stain Result 4+ White Blood Cells 4+ Gram positive cocci 2+ Gram positive bacilli Culture, Anaerobic [[id number]] Collected: 08/22/171809 Order Status: Resulted Lab Status: [...] arrival to floor from pacu. Luis A gamez in pacu states the wound vac has [...] signed by: Annmarie Blanco RN 08/22/2017 22:33 eepika Pérez , PharmD - 08/22/2017 4:12 PM PSTFormatting [...] Procedure Component Value Units Date/Time Culture, Blood [[id number]] Order Status: Sent Lab Status: No result Specimen: Blood from Line Culture, Blood [[id number]] Order Status: Sent Lab Status: No result [...] was s een in the ER in [place], [place] on 08/18/17 and received a prescription [...] might be different fr om the original. [place], [place] HOSPITALIST CONSULT NOTE Patient: Jessica Damon : 1965: Age: 52 y.o. MedRec: [id number] Admission date: 08/22/2017 Hospital day # : [...] by mouth 3 times daily. Historical Provid MD ani ALLERGIES: Allergies Allergen Reactions Sulfa Antibiotics Other [...] signed by: Norman Alfaro MD 08/22/2017 16:06 [facility] Portions of this chart may have been created with Media[employer] [place] voice recognition software. Occasi onal wrong-word or [...] might be diffe rent from the original. [facility] Jessica Damon Emergency Department Encounter Note [address] [place] [address] PCP:No Physician on file [phone] CHIEF COMPLAINT: [...] were reviewed along with EMS notes and snf record s if applicable. (See chart for [...] Pt will go home today. lan of [facility] - Radha Rodriguez RN - 08/28/2017 10:22 AM PSTDischarge Planning: Discharge order obtained. Per provider Ryland, would like patient seen in one week [facility] Dr. Ayala. CM contacted Dr. Ayala's office [...] Radha George RN 08/28/2017 10:24 lan of [facility] - Chelita Nelson, LINH - 08/28/2017 4:12 AM PSTProblem: Patient Care [...] is on general diet, tolerating well. lan [facility] , Valencia Millard RN - 08/26/2017 4:47 [...] Suazo MD - 08/26/2017 4:42 PM PST [address] [address] OPERATIVE REPORT MICHA AYALA MD Patient: JESSICA DAMON Admitting: MICHA AYALA MR #: [id number] LOC: PT TYPE: Adm Date: 08/22/2017 : 1965 DATE OF SURGERY AND DATE OF DICTATION: 08/26/2017 OPERATING SURGEON: Micha Ayala MD ANTISQUEAK WORKER: TITO Maldonado. ANESTHESIOLOGIST: Lam Granados MD PREOPERATIVE [...] was seen in the emergency room at [place], [place], where she was given a prescription for Keflex. In spite of this, she noted increasing pain and redness and ultimately was brought to the emergency room at [facility] where she was found to have a [...] 08/26/2017 16:42:33 Transcribed on 08/26/2017 17:21:13 by [facility] job# [id number] Confirmation #: [id number] p Note - Arethaani ball, Micha Suazo MD - 08/26/2017 4:42 PM PSTOp note dictation # [id number]. nterval H&P Note (unlinked) - Radha kostaMicha [...] signed by: Micha Ayala MD, 08/26/2017 15:43 [facility] lan of Urvashi Fernandez - 08/26/2017 7:48 AM PSTFaxed referra l to [facility] in [place]. Electronically signed by: Urvashi Sutton 08/26/2017 7:48 [...] 20 mg PRN. Urinating well to the [facility] e commode. Last bowel movement was 08/24/2017. Patient had no injuries or falls during this s hift. Patient was NPO after midnight. lan of [facility] - Bakari Benoit RN - 08/25/2017 5:08 [...] admitted for Abscess of deltoid region [L02.419]. Geographic Area Intelligence Officer visit was part of routine rounding. Spiritual Evaluation: Patient was resting in a bed and welcomed spiritual care. She is from [place] [facility] to return home. She is awaiting her dogs and her job there. 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 She is a Sikhism and has attended [employer] [facility] in the past. Spiritual Interventions: Rotary Engraver attended, offered care, listened actively and explored [...] done well on room air. lan of [facility] Bakari Faith RN - 08/23/2017 4:07 PM PSTProblem: Patient [...] well. Voiding with out difficulty. lan of Josh - Edelmira Vo LICSW - 08/23/2017 12:49 [...] recently connected with the [facility] at [facility]. She has been connected with Suboxone therapy, she is also working with N.A.and group therapy through the Recovery Clinic Pt lacks primary care, group underwriter provided options for primary care. Injection Molding Machine Offbearer to see who is available in [place]. Telephone call to [facility] ) [facility] has a nurse practictoner available, Kennedy Ruiz. He (like all their providers) require medical information to review prior to accepting patients. Their fax number is ) Plan: Continue to assess Pt intends to [...] room air lan of Care - Annmarie Adhkiari RN - 08/23/2017 2:59 AM PSTProblem: Patient [...] Micha Moore MD - 08/22/2017 6:[address] [id number] OPERATIVE REPORT MICHA AYALA MD Patient: JESSICA DAMON Admitting: MICHA AYALA MR #: [id number] LOC: PT TYPE: Adm Date: 08/22/2017 : 1965 DATE OF SURGERY AND DATE OF DICTATION: 08/22/2017. OPERATING SURGEON: Micha Ayala MD. ANTISQUEAK WORKER: TITO Maldonado. ANESTHESIOLOGIST: Lam Granados MD. PREOPERATIVE DIAGNOSIS: Right shoulder intradeltoid abscess. POSTOPERATIVE DIAGNOSIS: Right shoulder intradeltoid abscess. TITLE OF OPERATION: Incision, drainage, and debridement of intradeltoid abscess, right shoulder, with wound VAC application. HISTORY AND REASON FOR SURGERY: Jessica Damon is a 52-year-old female who resides in [place], [place]. She has a habit of skin popping with heroin. She was performing heroin injections into her right shoulder about a week ago and then developed some redness in her shoulder. She was seen in an emergency room in [place], [place], and was given a prescription for Keflex. Unfortunately, she noted increasing pain and redness over the past 36 hours and came to [facility] emergency room today for evaluation and care. [...] 08/22/2017 18:00:11 Transcribed on 08/22/2017 18:30:55 by [facility] job# [id number] Confirmation #: [id number] p Note - Micha Fernandes MD - 08/22/2017 6:00 PM PSTOp note dictation # [id number]. documented in this encounter Plan of Treatment [...] | | | Cells | | | . [facility] | | | | | | MEDICAL | | | | | | CENTER - | | | | | | LABORATORY | | + + + + + + | Red Blood | 3.81 | 3.70 - 5.20 | [facility] | | | Cells | | M/uL | [facility] | | | | | | MEDICAL [...] | Basophils | | K/uL | [facility] | | | | [...] [address] | [place] | [phone] | | [facility] | | [address] | | | - LABORATORY | | [...] | 0.91 | 0.60 - 1.30 | [place] | | | | | mg/dL | [facility] | | | | | | MEDICAL | | | | | | CENTER - | | | | | | LABORATORY | | + + + + + + | eGFR, | >60Comment: GLOMERULAR | >=60 | [facility] | | | non- | FILTRATION | mL/min/1.73m2 | [facility] | | | Turkmen | RATE,ESTIMATED | | MEDICAL | | | | mL/min/1.40m4Tuvx than | | CENTER - | | [...] + | [facility] | [address] | [place] | [phone] | | [facility] | | [address] | | | - LABORATORY | | [...] [address] | [place] | [phone] | | [facility] | | [address] | | | - LABORATORY | | [...] | | in | | | [facility] | | [...] + | [facility] | [address] | [place] | [phone] | | [facility] | | [address] | | | - LABORATORY | | [...] | 0.67 | 0.60 - 1.30 | [place] | | | | | mg/dL | [facility] | | | | | | MEDICAL | | | | | | CENTER - | | | | | | LABORATORY | | + + + + + + | eGFR, | >60Comment: GLOMERULAR | >=60 | [place] | | | non- | FILTRATION | mL/min/1.73m2 | [facility] | | | Turkmen | RATE,ESTIMATED | | MEDICAL | | | | mL/min/1.47t3Ibzv than | | CENTER - | | [...] [address] | [place] | [phone] | | [facility] | | [address] | | | - LABORATORY | | [...] | | Last Dose | | | [facility] | | | | | | MEDICAL | | | | | | CENTER - | | | | | | LABORATORY | | + +-------+ + + + | Time of | | | [facility] | | | Last Dose | | | [facility] | | [...] [address] | [place] | [phone] | | [facility] | | [address] | | | - LABORATORY | | [...] | | | Cells | | | [facility] | | | | | | MEDICAL | | | | | | CENTER - | | | | | | LABORATORY | | + + + + + + | Red Blood | 3.70 | 3.70 - 5.20 | [facility] | | | Cells | | M/uL | [facility] | | | | | | MEDICAL | | | | | | CENTER - | | | | | | LABORATORY | | + + + + + + | Hemoglobin | 10.5 (L) | 11.5 - 16.0 | [facility] | | | | | g/dL | [facility] | | | | | | MEDICAL [...] ST. | [address] | [place] | [phone] | | [facility] | | [address] | | | - LABORATORY | | [...] test | | | | | | ([id number]). | | | | + + + + + + + + | Specimen | + + | Blood | + + + + + | Narrative | Performed At | + + + | Performed at: 01 - [facility] [address] [address] [address], | REFERENCE LAB | | [place], [place] [id number] Photographer Finish: Jordan Currie MD, Phone: | [facility] | | [phone] | | + + + + + + + + | Performing | Address | City/State/Zipcode | Phone Number | | Organization | | | | + + + + + | REFERENCE LAB | [address] | [place], [place] | [phone] | | [facility] | Drive [facility] | [address] | | + + + + + [...] | Direct | | mg/dl | [facility] | | | | [...] [address] | [place] | [phone] | | [facility] | | [address] | | | - LABORATORY | | [...] + | [facility] | [address] | [place] | [phone] | | [facility] | | [address] | | | - LABORATORY | | [...] [address] | [place] | [phone] | | [facility] | | [address] | | | - LABORATORY | | [...] + | [facility] | [address] | [place] | [phone] | | [facility] | | [address] | | | - LABORATORY | | [...] appended report. These | mmol/L | [facility] | | | | results have been [...] mL/min/1.73m2 | [facility] | | | [place] | RATE,ESTIMATED | | MEDICAL | | | | mL/min/1.73c2Conh than | | CENTER - | | [...] [address] | [place] | [phone] | | [facility] | | [address] | | | - LABORATORY | | [...] + | [facility] | [address] | [place] | [phone] | | [facility] | | [address] | | | - LABORATORY | | [...] | | | | incubation. | | [facility] | | | | | [...] [address] | [place] | [phone] | | [facility] | | [address] | | | - LABORATORY | | [...] + | [facility] | [address] | [place] | [phone] | | [facility] | | [address] | | | - LABORATORY | | [...] | | | | intermediusComment: | | [facility] | | | | Streptococcus is usually [...] + | [facility] | [address] | [place], [place] | [phone] | | [facility] | | [address] | | | - LABORATORY | | [...] + | [facility] | [address] | [place] | [phone] | | [facility] | | [address] | | | - LABORATORY | | [...] | | | | mmol/L | [facility] | | | | [...] mL/min/1.73m2 | [facility] | | | [place] | RATE,ESTIMATED | | MEDICAL | | | | mL/min/1.03e1Szml than | | CENTER - | | [...] [address] | [place] | [phone] | | [facility] | | [address] | | | - LABORATORY | | [...] [address] | [place] | [phone] | | [facility] | | [address] | | | - LABORATORY | | [...] 2 g in | New Bag | 01/31/20 | 2 g | 100 | | [...] HOURS PRN, Itching, | | | Starting [facility] 08/22/17 at 2021, | | | Oral route is preferred., | | + +---+ | | | + +---+ | diphenhydrAMINE (BENADRYL) | | | injection 12.5 mg 12.5 mg, | | | Intravenous, EVERY 4 HOURS PRN, | | | Itching, Starting [facility] 08/22/17 at | | | 2021, Oral [...]
--- OUTSIDE RECORDS SUMMARY | ~2020-03-20 | XMS | Encounter Summary ---
Demographics + + + | Address | [address] | | | [place] [address] | + + + | Home Phone | | + + + | Preferred Language | Unknown | + + + | Marital Status | | + + + | Jew Affiliation | 1013 | + + + [...] | + + +---------+ + | Wily Block ECON | Unknown | | + + +---------+ + Care Team Providers + +------+ + | Care Marine Service Station Attendant Name | Role | Phone | + +------+ + | Miguel Gomez | PCP | | + +------+ + Encounter Details +--------+ + + + + | Date | Type | Department | Care Team | Description | +--------+ + + + + | 11/27/ | Orders Only | [facility] [place] | [facility], | Chronic hepatitis C | | 2019 | | GASTROENTEROLOGY | [address] | without hepatic coma | | | | [address] [place] | [address] | (HCC) (Primary Dx) | | | | [address] [place], [place] | [place], [place] | | | | | [address] | [address] | | | | | [phone] | | | +--------+ + + + [...] as of this encounter Plan of Treatment + +------+--------+ + + | Name | Type | Priori | Associated Diagnoses | Order Schedule | | | | ty | | | + +------+--------+ + + | HIV AG/AB, 4th Gen, | Lab | Routin | Chronic hepatitis | 1 Occurrences | | Reflex | | e | C without hepatic | starting 11/27/2018 | | | | | coma (HCC) | until 02/27/2019 | + +------+--------+ + + | Hepatitis C | Lab | Routin | Chronic hepatitis | Expected: | | Genotyping | | e | C without hepatic | 11/27/2018, Expires: | | | | | coma (HCC) | 03/27/2019 | + +------+--------+ + + | Hepatitis C RNA, | Lab | Routin | Chronic hepatitis | Expected: | | Quant, NAAT | | e | C without hepatic | 11/27/2018, Expires: | | | | | coma (HCC) | 03/27/2019 | + +------+--------+ + + | Alpha Fetoprotein, | Lab | Routin | Chronic hepatitis | Expected: | | Tumor Marker | | e | C without hepatic | 11/27/2018, Expires: | | | | | coma (HCC) | 03/27/2019 | + +------+--------+ + + | Exchw-3-Tempatgdvfp, | Lab | Routin | Chronic hepatitis | Expected: | | Total | | e | C without hepatic | 11/27/2018, Expires: | | | | | coma (HCC) | 03/27/2019 | + +------+--------+ + + | Mitochondrial Ab, M2 | Lab | Routin | Chronic hepatitis | Expected: | | | | e | C without hepatic | 11/27/2018, Expires: | | | | | coma (HCC) | 02/27/2019 | + +------+--------+ + + | Antinuclear Ab, | Lab | Routin | Chronic hepatitis | Expected: | | Titer + Pattern | | e | C without hepatic | 11/27/2018, Expires: | | | | | coma (HCC) | 02/27/2019 | + +------+--------+ + + | Smooth Muscle Ab | Lab | Routin | Chronic hepatitis | Expected: | | | | e | C without hepatic | 11/27/2018, Expires: | | | | | coma (HCC) | 03/30/2019 | + +------+--------+ + + | CBC with | Lab | Routin | Chronic hepatitis | 1 Occurrences | | Differential | | e | C without hepatic | starting 11/27/2018 | | | | | coma (HCC) | until 03/27/2019 | + +------+--------+ + + | Comprehensive | Lab | Routin | Chronic hepatitis | Expected: | | Metabolic Panel | | e | C without hepatic | 11/27/2018, Expires: | | | | | coma (HCC) | 03/27/2019 | + +------+--------+ + + | Ceruloplasmin | Lab | Routin | Chronic hepatitis | Expected: | | | | e | C without hepatic | 11/27/2018, Expires: | | | | | coma (HCC) | 03/27/2019 | + +------+--------+ + + | Protime INR | Lab | Routin | Chronic hepatitis | Expected: | | | | e | C without hepatic | 11/27/2018, Expires: | | | | | coma (HCC) | 03/27/2019 | + +------+--------+ + + | Ferritin | Lab | Routin | Chronic hepatitis | Expected: | | | | e | C without hepatic | 11/27/2018, Expires: | | | | | coma (HCC) | 03/27/2019 | + +------+--------+ + + | Iron and Transferrin | Lab | Routin | Chronic hepatitis | Expected: | | | | e | C without hepatic | 11/27/2018, Expires: | | | | | coma (HCC) | 03/27/2019 | + +------+--------+ + + | Hepatitis A Ab, IgM | Lab | Routin | Chronic hepatitis | Expected: | | | | e | C without hepatic | 11/27/2018, Expires: | | | | | coma (HCC) | 02/27/2019 | + +------+--------+ + + documented as of this encounter Visit Diagnoses + + | Diagnosis | + + | Chronic hepatitis C without hepatic coma (HCC) - Primary | + + documented in this encounter"
--- OUTSIDE RECORDS SUMMARY | ~2020-03-20 | XMS | Encounter Summary ---
Demographics + + + | Address | [address] | | | [place] [address] | + + + | Home Phone | | + + + | Preferred Language | Unknown | + + + | Marital Status | | + + + | Temple Affiliation | 1013 | + + + | Race | Unknown | + + + | Ethnic Group | Not or | + + + Author + + + | Author | [facility] | | | and [place] | + + + | Organization | [facility] | | [...] Team Providers + +------+ + | Care Sales And Service Agent Name | Role | Phone | + +------+ + | No, Physician | PCP | Unavailable | + +------+ + Reason for Visit Auth/Cert +--------+--------+ + + + + | [...] | +--------+ + + + + | 08/26/ | Anesthesia | [facility] | Lam Granados, | | | 2017 | Event | [facility] | MD [address] | | | | | [address] | [place] | | | | | [place] | [address] | | | | | [address] | | | | | | [phone] | | | +--------+ + + + + Anesthesia Record + + + + + | Procedure Name | Responsible | Anesthesia Start | Anesthesia Stop Time | | | Anesthesiologist | Time | | + + + + + | INCISION AND | Lam Granados MD | 08/26/17 1602 | 08/26/17 1642 | | DRAINAGE RIGHT | | | | | SHOULDER WITH WOUND | | | | | CLOSURE OVER DRAIN | | | | | (Right Shoulder) | | | | + + + + + +----+---+ + + | Da | T | Event | Comment | | te | i | | | | | m | | | | | e | | | +----+---+ + + | 01 | 1 | | | | /2 | 5 | | | | 9/ | 5 | | | | 20 | 2 | | | | 18 | | | | +----+---+ + + | | 1 | An Checkout | Pre-use anesthesia machine/equipment checkout. | | | 5 | | | | | 5 | | | | | 6 | | | +----+---+ + + | | 1 | An Start | Reassessment prior to anesthesia induction/procedure. | | | 6 | | | | | 0 | | | | | 2 | | | +----+---+ + + | | 1 | AN | Per surgeon request | | | 6 | Antibiotic | | | | 0 | declined | | | | 5 | | | +----+---+ + + | | 1 | Preoxygenat | | | | 6 | ed | | | | 0 | | | | | 8 | | | +----+---+ + + | | 1 | An | | | | 6 | Induction | | | | 0 | | | | | 9 | | | +----+---+ + + | | 1 | An | | | | 6 | Intubation | | | | 1 | | | | | 0 | | | +----+---+ + + | | 1 | AN Bite | | | | 6 | Block | | | | 1 | | | | | 1 | | | +----+---+ + + | | 1 | [place] | | | | 6 | 43-degrees | | | | 2 | | | | | 0 | | | +----+---+ + + | | 1 | First | | | | 6 | Inc/Proc St | | | | 2 | | | | | 2 | | | +----+---+ + + | | 1 | [place] off | | | | 6 | | | | | 3 | | | | | 7 | | | +----+---+ + + | | 1 | an stop | | | | 6 | data | | | | 3 | | | | | 7 | | | +----+---+ + + | | 1 | An Stop | Patient handed off to recovery nurse. | | | 4 | | | | | 2 | | | +----+---+ + + +------+ | Meds | +------+ + +---------+ | Name | Total | + +---------+ | midazolam | 2 mg | + +---------+ | fentaNYL | 100 mcg | + +---------+ | lidocaine 2% (PF) | 60 mg | + +---------+ | propofol | 130 mg | + +---------+ | dexamethasone | 10 mg | + +---------+ | ondansetron | 4 mg | + +---------+ | ketamine | 125 mg | + +---------+ | HYDROmorphone | 2 mg | + +---------+ | lactated ringers (LR) infusion | 550 mL | + +---------+ + + | Name | + + | N2O Flow Rate (L/Min) | + + | O2 Flow Rate (L/Min) | + + | Insp O2 | + + | Exp SEV | + + | Air Flow Rate (L/Min) | + + + + | No blood administrations on file. | + + +--------+ + + + | Type | Details | Placement | Removal | +--------+ + + + | Drain/ | 08/22/17; 1746; Wound Vac; per | 08/22/171746 by | 08/26/171622 by | | Device | protocol/policy; changed to | Milvia Stokes RN | Aydee Nevarez RN | | Site | different LDA type; 08/26/17; | | | | | 1623 | | | +--------+ + + + | Read | 08/22/17; 1753; Right; shoulder; | 08/22/171753 by | 08/26/171899 by | | only - | 08/26/171899 | Milvia Stokes RN | Chelita Wiggins RN | | | | | | | Incisi | | | | | on | | | | +--------+ + + + | PICC | 08/24/17; 1230; [facility]; Yes; | 08/24/17 1230 by | 08/28/17 1030 by | | Single | Chlorhexidine/Isopropyl Alcohol; | Manjula F | Gary Velasquez RN | | Lumen | Yes; Yes; All; Patient room; | LIN[facility] Palacios | | | | Program Developer; linh smith; | | | | | Registered nurse; Yes; New | | | | | indication for central line | | | | | (e.g., hemodynamic monitoring, | | | | | fluid/medication administration, | | | | | etc.); basilic vein (medial side | | | | | of arm), left; pressure | | | | | injectable catheter (BARD lot # | | | | | [id number]); 4 Fr, length (specify) | | | | | (trimmed to 47cm, inserted | | | | | 44cm); 0; distraction, | | | | | intradermal injection, tolerated | | | | | well, appears comfortable; | | | | | ultrasound visualization with | | | | | modified seldinger technique at | | | | | bedside; placement verified by | | | | | x-ray; short term use; 08/28/17; | | | | | 1030 | | | +--------+ + + + | Airway | Placement Date: 08/26/17; | 08/26/17 1610 by | 08/26/17 1700 by | | | Placement Time: 161 (created via | Lam Granados MD | Bouchra Yi RN | | | procedure documentation); Mask | | | | | Ventilation: EZ; Attempts: 1; | | | | | Airway Type: laryngeal mask; | | | | | Size: 4; Trauma: none; Placement | | | | | Check: exhaled CO2 detection | | | | | device; Removal: per protocol; | | | | | Removal Date: 08/26/17; Removal | | | | | Time: 1700 | | | +--------+ + + + | Drain/ | 08/26/17; 1632; #1; Right; | 08/26/17 1632 by | 08/28/17 0800 by | | Device | anterior; shoulder; collapsible | Aydee Nevarez RN | Gary Velasquez RN | | Site | closed device; short term use ( | | | | | removed this morning. ); | | | | | 08/28/17; 0800 | | | +--------+ + + + documented in this encounter Social History + + + +--------+------+ | [...] + + documented as of this encounter OR Notes Anesthesia Postprocedure Evaluation - Lam Granados MD - 08/26/2017 6:28 PM PSTFormlorenai ng of this note might be different from the original. ANESTHESIA POSTANESTHESIA EVALUATION Leslie Leung 52 y.o. female 1965 [id number] Procedure(s) INCISION AND DRAINAGE RIGHT SHOULDER WITH WOUND CLOSURE OVER DRAIN (Right Chantel ulder) Cooperates? Yes Mental Status Performs simple tasks. Respiratory Satisfactory - Airway patent (self maintained). Cardiovascular Satisfactory - Blood pressure and heart rate acceptable Temperature Satisfactory Pain Satisfactory N/V Control Satisfactory Hydration Satisfactory - No signs of dehydration Complications None apparent Pain within expected limits; did not request postop block. Vitals: 08/26/17 1750 08/26/17 1800 08/26/17 1815 BP: (!) 160/99 (!) 132/95 142/77 Pulse: 80 59 60 Temp: Resp: 14 8 12 SpO2: 90% 99% 98% Electronically signed by Lam Granados MD 08/26/2017 18:28 [facility]ron[facility] signed by Lam Granados MD at 07/30 6:29 PM PSTAnesthesia Procedure Notes - Lam Granados MD - 08/26/2017 4:25 PM PS TAssociated Order(s): ANE AIRWAY NOTEAnesthesia Airway Placement 08/26/2017 16:10 Preprocedure check: patient identified, suction, airway equipment checked, oxygen, airway a ssessed and patient reassessment prior to induction Rapid Sequence Induction: no Mask ventilation: easy Attempts: 1 Airway type: laryngeal mask Size: 4 Cuffed: cuffed Route, reference point: center of mouth Trauma: none Tube placement verification: carbon dioxide detection Performing provider: LAM GRANADOS Electronically Signed by: Lam Granados MD ESig date/time: 16:25 nesthesia Preprocedu re Evaluation - Lam Granados MD - 08/26/2017 3:01 PM PSTFormatting of this note might b e different from the original. ANESTHESIA PREANESTHESIA EVALUATION Leslie Leung 52 y.o. female 1965 [id number] Procedure(s): INCISION AND DRAINAG RIGHT SHOULDER WITH WOUND CLOSURE (Right ) Medical history, anesthesia, medications, allergy, NPO status verified histories reviewed. ECG reviewed. Labs reviewed. Review of Systems / Med History Psychology (+) substance abuse (Heroin (endorses using on day of admission)) Renal Lab Results Component Value Date CREA 0.67 08/24/2017 BUN 12 08/24/2017 NA 141 08/24/2017 K 3.7 08/24/2017 CL 108 08/24/2017 CO2 28 08/24/2017 . Gastrointestinal/Hepatic (+) hepatitis: type C Other Lab Results Component Value Date WBC 17.4 (H) 08/23/2017 HGB 10.5 (L) 08/23/2017 HCT 31.7 (L) 08/23/2017 MCV 85.8 08/23/2017 PLT 284 08/23/2017 . Physical Exam Airway MP II, TM >3 FB, Mouth opening >2 FB. Neck: full ROM, extends >30 degrees. Dental Rayshawn ssly normal except where noted below.; (+) missing teeth and Poor dentition. CV Rhythm regular. Rate Normal. (-) murmur. Pulm Clear to auscultation bilaterally. Neuro Grossly normal. Anesthesia Plan ASA 3E Type: General. Induction: Intravenous. Potential problems: None anticipated. Monitors: Standard ASA monitors. Consent statement:Anesthetic plan, alternatives, risks and benefits discussed with patient. Risks discussed included (but were not limited to): sore throat, nausea, heart problems, re spiratory events, pain, perioperative CV events, failed or inadequate block, bleeding, nerve damage, intravascular injection. Consenting person understands and agrees to proceed. PARQ. Dr. Mclain requests I consider interscalene block. Initial reservations given infection . However, I placed an IJ without incident on day of admission and she is now on her 5th da y of antibiotics; moreover, it would be a single-shot. Having assessed her, there is no swe lling or acute infection at the site. Interscalene single-shot peripheral nerve block requested by surgeon for postoperative pain control. Full PARQ held. All questions answered. Plan GA w/ LMA. Patient declines PREOP ERATIVE block. She is willing to have placed post-operatively if she requests in PACU. . documented in this en counter Plan of Treatment Not on filedocumented as of this encounter Procedures + +--------+ + + + | Procedure Name | Priori | Date/Time | Associated Diagnosis | Comments | | | ty | | | | + +--------+ + + + | ANE AIRWAY NOTE | Routin | 08/26/2017 | | Results for this | | | e | 4:25 PM | | procedure are in the | | | | PST | | results section. | + +--------+ + + + documented in this encounter Results Anesthesia Airway Note (08/26/2017 4:25 PM PST) + + + | Narrative | Performed At | + + + | Lam Granados MD 08/26/2017 16:28 Anesthesia Airway | | | Placement 08/26/2017 16:10 Preprocedure check: patient identified, | | | suction, airway equipment checked, oxygen, airway assessed and | | | patient reassessment prior to induction Rapid Sequence Induction: no | | | Mask ventilation: easy Attempts: 1 Airway type: laryngeal mask | | | Size: 4 Cuffed: cuffed Route, reference point: center of mouth | | | Trauma: none Tube placement verification: carbon dioxide detection | | | Performing provider: LAM GRANADOS Electronically Signed by: | | | Lam Granados MD ESig | | | date/time: 08/26/2017 16:25 | | + + + + + | Procedure Note | + + | Lam Granados MD - 08/26/2017 4:25 PM PST Anesthesia Airway Placement08/26/2017 | | 16:10Preprocedure check: patient identified, suction, airway equipment checked, oxygen, | | airway assessed and patient reassessment prior to inductionRapid Sequence Induction: | | noMask ventilation: easyAttempts: 1Airway type: laryngeal maskSize: 4Cuffed: | | cuffedRoute, reference point: center of mouthTrauma: noneTube placement verification: | | carbon dioxide detectionPerforming provider: LAM GRANADOS TElectronically Signed by: | | Lam Granados MD ESig date/time: 08/26/2017 16:25 | | | |Size: 4 | |Cuffed: cuffed | |Route, reference point: center of mouth | |Trauma: none | |Tube placement verification: carbon dioxide detection | |Performing provider: LAM GRANADOS | | | | | |Electronically Signed by: Lam Granados MD ESig date/time: 16:25 | | | + + documented in this encounter Visit Diagnoses Not on filedocumented in this encounter Administered Medications + +--------+ +-------+------+------+ | Medication Order | MAR | Action | Dose | Rate | Site | | | Action | Date | | | | + +--------+ +-------+------+------+ | dexamethasone (PF) 10 mg/mL | Given | 08/26/19 | 10 mg | | | | injection Intravenous, PRN, | | 18 4:15 | | | | | Starting 08/26/17 at 1615, | | PM PST | | | | | Anesthesia Intra-op | | | | | | + +--------+ +-------+------+------+ +---+---+ | | | +---+---+ + +-------+ +--------+---+---+ | fentaNYL (PF) injection | Given | 08/26/19 | 50 mcg | | | | Intravenous, PRN, Pain, Starting | | 18 4:09 | | | | | 08/26/17 at 1602, Anesthesia | | PM PST | | | | | Intra-op | | | | | | + +-------+ +--------+---+---+ +-------+ +--------+---+---+ | Given | 08/26/19 | 50 mcg | | | | | 18 4:02 | | | | | | PM PST | | | | +-------+ +--------+---+---+ +---+---+ | | | +---+---+ + +-------+ +------+---+---+ | HYDROmorphone (DILAUDID) 2 | Given | 08/26/19 | 1 mg | | | | mg/mL injection Intravenous, | | 18 4:31 | | | | | PRN, Pain, Starting Sat08/26/17 | | PM PST | | | | | at 1625, Anesthesia Intra-op | | | | | | + +-------+ +------+---+---+ +-------+ +------+---+---+ | Given | 08/26/19 | 1 mg | | | | | 18 4:25 | | | | | | PM PST | | | | +-------+ +------+---+---+ +---+---+ | | | +---+---+ + +-------+ +-------+---+---+ | ketamine 50 mg/mL injection | Given | 08/26/19 | 50 mg | | | | PRN, Starting 08/26/17 at | | 18 4:22 | | | | | 1615, Anesthesia Intra-op | | PM PST | | | | + +-------+ +-------+---+---+ +-------+ +-------+---+---+ | Given | 08/26/19 | 75 mg | | | | | 18 4:15 | | | | | | PM PST | | | | +-------+ +-------+---+---+ [...] | | +---+---+ + +-------+ +-------+---+---+ | lidocaine (PF) 2% injection | Given | 08/26/19 | 60 mg | | | | PRN, Starting Sat08/26/17 at | | 18 4:09 | | | | | 1609, Anesthesia Intra-op | | PM PST | | | | + +-------+ +-------+---+---+ +---+---+ | | | +---+---+ + +-------+ +------+---+---+ | midazolam (VERSED) 1 mg/mL | Given | 08/26/19 | 2 mg | | | | injection Intravenous, PRN, | | 18 4:02 | | | | | Anxiety, Starting Sat08/26/17 at | | PM PST | | | | | 1602, Anesthesia Intra-op | | | | | | + +-------+ +------+---+---+ +---+---+ | | | +---+---+ + +-------+ +------+---+---+ | ondansetron (ZOFRAN) injection | Given | 08/26/19 | 4 mg | | | | PRN, Nausea, Vomiting, Starting | | 18 4:15 | | | | | 08/26/17 at 1615, Anesthesia | | PM PST | | | | | Intra-op | | | | | | + +-------+ +------+---+---+ +---+---+ | | | +---+---+ + +-------+ +--------+---+---+ | propofol (DIPRIVAN) injection | Given | 08/26/19 | 130 mg | | | | Intravenous, PRN, Starting Mon | | 18 4:09 | | | | | 08/26/17 at 1609, Anesthesia | | PM PST | | | | | Intra-op | | | | | | + +-------+ +--------+---+---+ +---+---+ | | | +---+---+ documented in this encounter"
--- OUTSIDE RECORDS SUMMARY | ~2020-03-20 | XMS | Encounter Summary ---
Demographics + + + | Address | [address] | | | [place] [address] | + + + | Home Phone | | + + + | Preferred Language | Unknown | + + + | Marital Status | | + + + | Methodist Affiliation | 1013 | + + + | Race | Unknown | + + + | Ethnic Group | Not or | + + + Author + + + | Author | [facility] | | | and [place] | + + + | Organization | [facility] | | [...] Team Providers + +------+ + | Care As400 Analyst Name | Role | Phone | + +------+ + | Miguel Gomez | PCP | | + +------+ + Encounter Details +--------+ + + + + | Date | Type | Department | Care Team | Description | +--------+ + + + + | 03/25/ | Telephone | [facility] | [facility], | | | 2018 | | MED CTR | PharmD [address] | | | | | PHARMACOTHERAPY | [place], [place] | | | | | CLINIC [address] | [id number] | | | | | [place], [place] | | | | | | [address] | | | | | | [phone] | | | +--------+ + + + [...] this encounter Miscellaneous Notes Telephone Encounter - Pop Garcias, PharmD - 03/25/2019 2:14 PM PDTHave not been able to reach patient. We have tried to call twice and sent a physical letter. Two weeks have pass ed and no contact. I called [facility] and they report that they were able to speak wit h the patient and delivered her Mavyret 03/24. Tried to call patient again and phone went straight to [place]. Left message asking her to call back. If nothing in a week will discharge patient back to [facility] yanely Garcias, Nam 03/25/2019 14:18 documented in this encounter Plan of Treatment Not on filedocumented as of this encounter Visit Diagnoses Not on filedocumented in this encounter"
--- OUTSIDE RECORDS SUMMARY | ~2020-03-20 | XMS | Encounter Summary ---
Demographics + + + | Address | [address] | | | [place] [address] | + + + | Home Phone | | + + + | Preferred Language | Unknown | + + + | Marital Status | | + + + | Restoration Affiliation | 1013 | + + + | Race | Unknown | + + + | Ethnic Group | Not or | + + + Author + + + | Author | [facility] | | | and [place] | + + + | Organization | [facility] | | | [...] Team Providers + +------+ + | Care Mortar Carrier Name | Role | Phone | + +------+ + | Miguel Gomez | PCP | | + +------+ + Encounter Details +--------+ + + + + | Date | Type | Department | Care Team | Description | +--------+ + + + + | 02/21/ | Abstract | [facility] | Provider, | | | 2019 | | GASTROENTEROLOGY | MD Abbe [address] | | | | | [address] [facility] | Claire Crook | | | | | [address] [place], [place] | [place] [address] | | | | | [address] | | | | | | [phone] | | | +--------+ + + + [...] + +--------+ + + + | HEPATITIS A, B, C | Routin | 09/19/2017 | | Results for this | | PANEL, REFLEX | e | | | procedure are in the | | | | | | results section. | + +--------+ + + + documented in this encounter Results Hepatitis A, B, C Panel, Reflex (09/19/2017) + + + + + + | Component | Value | Ref Range | Performed | Pathologist | | | | | At | Signature | + + + + + + | HEP A IGM | Non Reactive | Non Reactive | | | + + + + + + | Hepatitis B | Negative | | | | | Surface | | | | | | Ag, | | | | | | External | | | | | + + + + + + | Hepatitis B | Non Reactive | Non Reactive | | | | Core Ab, | | | | | | Total | | | | | + + + + + + | HCV Ab | Positive | | | | + + + + + + | Signal/Cuto | 38.98 | | | | | ff | | | | | + + + + + + + + | Specimen | + + | Blood | + + documented in this encounter Visit Diagnoses Not on filedocumented in this encounter"
--- OUTSIDE RECORDS SUMMARY | ~2020-03-20 | XMS | Encounter Summary ---
Demographics + + + | Address | [address] | | | [place] [address] | + + + | Home Phone | | + + + | Preferred Language | Unknown | + + + | Marital Status | | + + + | Evangelical Affiliation | 1013 | + + + | Race | Unknown | + + + | Ethnic Group | Not or | + + + Author + + + | Author | [facility] | | | and [place] | + + + | Organization | [facility] | | | [...] Team Providers + +------+ + | Care Insurance Verification Rep Name | Role | Phone | + +------+ + | Miguel Gomez | PCP | | + +------+ + Reason for Visit + +--------+ + | Reason | Onset | Comments | | | Date | | + +--------+ + | Medication Prior | 03/11/ | | | Authorization | 2019 | | + +--------+ + Encounter Details +--------+ + + + + | Date | Type | Department | Care Team | Description | +--------+ + + + + | 03/11/ | Telephone | [facility] | Pop Garcias, | Medication Prior | | 2019 | | MED CTR | PharmD [address] | Authorization | | | | PHARMACOTHERAPY | [place], [place] | | | | | CLINIC [address] | [id number] | | | | | [place], [place] | | | | | | [address] | | | | | | [phone] | | | +--------+ + + + [...] encounter Miscellaneous Notes Telephone Encounter - Pop Garcias PharmD - 03/13/2019 11:35 AM PDT2nd attempt: no answe r left message. Will send letter Pop Garcias PharmD 03/13/2019 11:37 elephone Encounte r - Pop Garcias PharmD - 03/11/2019 2:16 PM PDT1st attempt: no answer left message to christin all back Wanted to update Leslie that her PA has been approved and to give her [facility] pharmacy's phone number. Will try again later this week. Pop Garcias PharmD 03/11/2019 14:18 documented in this encounter Plan of Treatment Not on filedocumented as of this encounter Visit Diagnoses Not on filedocumented in this encounter"
--- OUTSIDE RECORDS SUMMARY | ~2020-03-20 | XMS | Encounter Summary ---
Demographics + + + | Address | [address] | | | [place] [address] | + + + | Home Phone | | + + + | Preferred Language | Unknown | + + + | Marital Status | | + + + | Orthodoxy Affiliation | 1013 | + + + | Race | Unknown | + + + | Ethnic Group | Not or | + + + Author + + + | Author | [facility] | | | and [place] | + + + | Organization | [facility] | | | [...] Team Providers + +------+ + | Care Radiation Technician Name | Role | Phone | + +------+ + | Miguel Gomez | PCP | | + +------+ + Reason for Visit +--------+--------+ + | Reason | Onset | Comments | | | Date | | +--------+--------+ + | LABS | 12/30/ | | | | 2019 | | +--------+--------+ + Encounter Details +--------+ + + + + | Date | Type | Department | Care Team | Description | +--------+ + + + + | 12/30/ | Telephone | [facility] [place] | [facility], | LABS | | 2019 | | GASTROENTEROLOGY | [address] | | | | | [address] | [address] | | | | | [address] [place], [place] | [place], [place] | | | | | [address] | [address] | | | | | [phone] | | | +--------+ + + + [...] Telephone Encounter - Bouchra Wick CMA - 12/30/2018 12:48 PM PDTLeft message remindi ng patient to get her labs drawn at [facility]. documented in this encounter Plan of Treatment Not on filedocumented as of this encounter Visit Diagnoses Not on filedocumented in this encounter"
--- OUTSIDE RECORDS SUMMARY | ~2020-03-20 | XMS | Encounter Summary ---
Demographics + + + | Address | [address] | | | [place] [address] | + + + | Home Phone | | + + + | Preferred Language | Unknown | + + + | Marital Status | | + + + | Anglican Affiliation | 1013 | + + + [...] Team Providers + +------+ + | Care Gasoline Engine Inspector Name | Role | Phone | + +------+ + | No, Physician | PCP | Unavailable | + +------+ + Reason for Visit +---------+ + | Reason | Comments | +---------+ + | Post Op | I&D right shoulder wound closure DOS 08/26/17 | +---------+ + Encounter Details +--------+---------+ + + + | Date | Type | Department | Care Team | Description | +--------+---------+ + + + | 09/03/ | Office | [facility] | Ernesto Mclain | [facility] orthopedic | | 2018 | Visit | ORTHOPEDIC SURGERY | MD Abel Lam | surgery, follow-up | | | | [address] | [place] | exam (Primary Dx) | | | | [place] | [id number] | | | | | [address] | | | | | | [phone] | | | +--------+---------+ + + + [...] documented as of this encounter Progress Notes Ernesto Mclain MD - 09/03/2017 11:45 AM PSTMs. 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 She was treated on 08/22/17 with inc ision and drainage of the shoulder with wound VAC application. She was then taken back to [facility] on 08/26/17 for debridement, removal of wound VAC, and closure over a drain. She was able to have the drain removed on the first postoperative day and was discharged on oral ant ibiotics. Today, she returns for follow-up of her right shoulder and notes that overall her pain is minimal. Exam: Examination of the right shoulder reveals that there is no residual swelling or redne ss. The incision is healing nicely. There is no visible drainage. Neurovascular function is intact to the right hand. Advice: Today we have removed the sutures and applied Steritapes and benzoin. The patient no longer appears toxic and wants to return to work. We therefore will release her to [employer] work activities as of 09/06/17. We have encouraged her to complete her course of o ral antibiotics as prescribed. We will plan to see Ms. Leung back in the future as needed. documented in thi s encounter Plan of Treatment Not on filedocumented as of this encounter Visit Diagnoses + + | Diagnosis | + + | S/P orthopedic surgery, follow-up exam - Primary Follow-up examination, following | | other surgery | + + documented in this encounter"
--- OUTSIDE RECORDS SUMMARY | ~2020-03-20 | XMS | Encounter Summary ---
Demographics + + + | Address | [address] | | | [place] [address] | + + + | Home Phone | | + + + | Preferred Language | Unknown | + + + | Marital Status | | + + + | Buddhism Affiliation | 1013 | + + + [...] Team Providers + +------+ + | Care Accredited Pharmacy Technician Name | Role | Phone | + +------+ + | Miguel Gomez | PCP | | + +------+ + Encounter Details +--------+ + + + + | Date | Type | Department | Care Team | Description | +--------+ + + + + | 03/03/ | Orders Only | [facility] | Chronic hepatitis C | | 2019 | | [facility] | PharmD [address] | without hepatic coma | | | | PHARMACOTHERAPY | [place], [place] | (HCC) (Primary Dx) | | | | CLINIC [address] | [id number] | | | | | [place], [place] | | | | | | [address] | | | | | | [phone] | | | +--------+ + + + [...]
--- OUTSIDE RECORDS SUMMARY | ~2020-03-20 | XMS | Clinical Summary ---
Demographics + + + | Address | [address] | | | [place] [address] | + + + | Home Phone | | + + + | Preferred Language | Unknown | + + + | Marital Status | | + + + | Pentecostal Affiliation | 1013 | + + + | Race | Unknown | + + + | Ethnic Group | Not or | + + + Author + + + | Author | [facility] | | | and [place] | + + + | Organization | [facility] | | [...] Team Providers + +------+ + | Care Slot Floor Person Name | Role | Phone | + +------+ + | Miguel Gomez | PCP | | + +------+ + Allergies + + + + + + | Active Allergy | Reactions | Severity | Noted | Comments | | | | | Date | | + + + + + + | Sulfa Antibiotics | Other (See Comments) | | 05/06/20 | "lip swelling" | | | | | 17 | | + + + + + + Medications + + + +---------+------+------+-------+ | Medication | Sig | Dispensed | Refills | Star | End | Statu | | | | | | t | Date | s | | | | | | Date | | | + + + +---------+------+------+-------+ | aspirin 81 mg | Take 81 mg by mouth | | 0 | | | Activ | | chewable tablet | Daily. | | | | | e | + + + +---------+------+------+-------+ | methadone 1 mg/mL | Take 130 mg by mouth | | 0 | | | Activ | | solution | Daily. | | | | | e | + + + +---------+------+------+-------+ Active Problems + + + | Problem | Noted Date | + + + | Abscess of deltoid region | 08/22/2017 | + + + | Substance abuse | 08/22/2017 | + + + | Hepatitis C | 08/22/2017 | + + + | Heroin abuse | 08/22/2017 | + + + Family History + + +------+ + | Medical History | Relation | Name | Comments | + + +------+ + | Cancer | Father | | Prostate | + + +------+ + | Diabetes | Mother | | | + + +------+ + | Hypertension | Mother | | | + + +------+ + | Osteoporosis | Mother | | | + + +------+ + | TIA | Mother | | | + + +------+ + + +------+--------+ + | Relation | Name | Status | Comments | + +------+--------+ + | Father | | | | + +------+--------+ + | Mother | | | | + +------+--------+ + Social History + + + +--------+------+ [...] on file | | + + + Last Filed Vital Signs + + + + + | Vital Sign | Reading | Time Taken | Comments | + + + + + | Blood Pressure | 141/86 | 02/26/2019 2:11 PM | | | | | PDT | | + + + + + | Pulse | 80 | 02/26/2019 2:11 PM | | | | | PDT | | + + + + + | Temperature | 36.1 C (97 F) | 02/26/2019 2:11 PM | | | | | PDT | | + + + + + | Respiratory Rate | 18 | 02/26/2019 2:11 PM | | | | | PDT | | + + + + + | Oxygen Saturation | 98% | 02/26/2019 2:11 PM | | | | | PDT [...] | | + + + + + Plan of Treatment + + + + + | Health Maintenance | Due Date | Last | Comments | | | | Done | | + + + + + | Vaccine: | | | | | Pneumococcal 19-64 | 9 | | | | (1 of 1 - PPSV23) | | | | + + + + + | Cervical Cancer | | | | | Screening (Pap) | 3 | | | + + + + + | Colorectal Cancer | | | | | Screening | 3 | | | | (Colonoscopy) | | | | + + + + + | Vaccine: Zoster (1 | | | | | of 2) | 3 | | | + + + + + | Breast Cancer | | | | | Screening | 8 | | | + + + + + | Vaccine: Influenza | | 09/10/19 | | | (#1) | 0 | 18, | | | | | 08/07/19 | | | | | 13 | | + + + + + | Vaccine: | | 12/15/19 | | | Dtap/Tdap/Td (2 - | 2 | 12 | | | Td) | | | | + + + + + | Hepatitis C | Completed | 08/08/20 | | | Screening | | 19, | | | | | 03/03/20 | | | | | 19, | | | | | 02/27/20 | | | | | 19, | | | | | Addition | | | | | al | | | | | history | | | | | exists | | + + + + + Results Not on filefrom Last 3 Months Insurance + +--------+ +--------+ +---------+--------+ | Payer | Benefi | Subscriber | Effect | Phone | Address | Type | | | t Plan | ID | titus | | | | | | / | | Dates | | | | | | Group | | | | | | + +--------+ +--------+ +---------+--------+ | [employer] | [employer] | [id number] | | [phone] | | Medica | | MEDICAID HMO | HEALTH | | [id number]-Pr | 1 | | id | | | MDCD | | esent | | | | | | [place] | | | | | | + +--------+ +--------+ +---------+--------+ + +--------+ +--------+ + + | Guarantor Name | Accoun | Relation to | Date | Phone | Billing Address | | | t Type | Patient | of | | | | | | | | | | + +--------+ +--------+ + + | Leslie Boyer | Person | Self [birth year] | [address] | | D | al/Fam | | 1965 | [phone] | [place] [address] | | | [place] | | | 0 (Home) | | + +--------+ +--------+ + + Advance Directives + + + + + | Type | Date Recorded | Patient | Explanation | | | | Professor Of Visual Arts | | + + + + + | Power of | | | | | Ball Fringe Machine Operator | | | | + + + + + | Advance | 08/23/2017 10:03 | | | | Directive | AM | | | + + + + + + + + + + | Code Status | Date | Date | Comments | | | Activated | Inactivated | | + + + + + | Full Code | 08/22/2017 | 08/28/2017 | | | | 8:22 PM | 12:54 PM | | + + + + +
--- OUTSIDE RECORDS SUMMARY | ~2020-03-20 | XMS | Encounter Summary ---
Demographics + + + | Address | [address] | | | [place] [address] | + + + | Home Phone | | + + + | Preferred Language | Unknown | + + + | Marital Status | | + + + | Voodoo Affiliation | 1013 | + + + | Race | Unknown | + + + | Ethnic Group | Not or | + + + Author + + + | Author | [facility] | | | and [place] | + + + | Organization | [facility] | | | [...] Team Providers + +------+ + | Care District Sales Manager Name | Role | Phone | + [...] + + + + | 08/22/ | Anesthesia | DEMETRIUS OLIVARES | Lam Granados, | | | 2017 | Event | [facility] | [address] | | | | | [address] | [place], [place] | | | | | [place], [place] | [address] | | | | | [id number] | | | | | | [phone] | Ernesto Strong | | | | | | MD [facility] [address] | | | | | | [address] [place] | | | | | | [place] [address] | | | | | | | | | | | | | | +--------+ + + + + Anesthesia Record + + + + + | Procedure Name | Responsible | Anesthesia Start | Anesthesia Stop Time | | | Anesthesiologist | Time | | + + + + + | I&D of Right | Lam Granados MD | 08/22/178 | 08/22/17 6035 | | Shoulder Abscess and | | | | | Wound Vac Placement | | | | | (N/A Shoulder) | | | | + + + + + +----+---+ + + | Da | T | Event | Comment | | te | i | | | | | m | | | | | e | | | +----+---+ + + | 01 | 1 | | | | /2 | 6 | | | | 5/ | 2 | | | | 20 | 7 | | | | 18 | | | | +----+---+ + + | | 1 | An Checkout | Pre-use anesthesia machine/equipment checkout. | | | 6 | | | | | 3 | | | | | 5 | | | +----+---+ + + | | 1 | An Start | Reassessment prior to anesthesia induction/procedure. | | | 6 | | | | | 3 | | | | | 8 | | | +----+---+ + + | | 1 | AN | Per surgeon request until cultures sent. | | | 6 | Antibiotic | | | | 3 | declined | | | | 9 | | | +----+---+ + + | | 1 | Preoxygenat | | | | 6 | ed | | | | 4 | | | | | 5 | | | +----+---+ + + | | 1 | An | | | | 6 | Induction | | | | 4 | | | | | 6 | | | +----+---+ + + | | 1 | An | | | | 6 | Intubation | | | | 4 | | | | | 7 | | | +----+---+ + + | | 1 | CVC Start | | | | 6 | | | | | 5 | | | | | 4 | | | +----+---+ + + | | 1 | CVC Stop | | | | 7 | | | | | 0 | | | | | 4 | | | +----+---+ + + | | 1 | First | | | | 7 | Inc/Proc St | | | | 1 | | | | | 9 | | | +----+---+ + + | | 1 | Antibiotic | | | | 7 | Given | | | | 2 | | | | | 2 | | | +----+---+ + + | | 1 | AN No | TOF 4/4 with sustained tetanus. | | | 7 | Residual | | | | 3 | NMB | | | | 9 | | | +----+---+ + + | | 1 | Breathing | | | | 7 | Spontaneous | | | | 3 | ly | | | | 9 | | | +----+---+ + + | | 1 | Oropharynx | | | | 7 | Suctioned | | | | 4 | | | | | 1 | | | +----+---+ + + | | 1 | Moving | | | | 7 | Purposefull | | | | 4 | y | | | | 7 | | | +----+---+ + + | | 1 | Extubated | | | | 7 | Awake | | | | 4 | | | | | 7 | | | +----+---+ + + | | 1 | an stop | | | | 7 | data | | | | 4 | | | | | 7 | | | +----+---+ + + | | 1 | An Stop | Patient handed off to recovery nurse. | | | 5 | | | | | 7 | | | +----+---+ + + +------+ | Meds | +------+ + +---------+ | Name | Total | + +---------+ | midazolam | 2 mg | + +---------+ | fentaNYL | 100 mcg | + +---------+ | lidocaine 2% (PF) | 70 mg | + +---------+ | propofol | 140 mg | + +---------+ | succinylcholine | 80 mg | + +---------+ | dexamethasone | 10 mg | + +---------+ | ondansetron | 4 mg | + +---------+ | vancomycin 1 g in sodium chloride | 1 g | | 0.9% 250 mL IVPB | | + +---------+ | morphine | 10 mg | + +---------+ | LR (Infusion) | 800 mL | + +---------+ + + | [...] Removal | +--------+ + + + | Periph | 08/22/17; 1324; Left; Other | 08/22/17 1324 by | 08/24/17 1027 by | | eral | (specify) (shoulder); | Valentina Simon, | Bakari Leggett RN | | IV | [id number] catheter system; | RN | | | | 20 gauge; lumen/catheter not | | | | | patent; healing within | | | | | expectations; 08/24/17; 1027 | | | +--------+ + + + | Airway | Placement Date: 08/22/17; | 08/22/171646 by | 08/22/171746 by | | | Placement Time: 1646 (created via | Lam Granados MD | Lam Granados MD | | | procedure documentation); Mask | | | | | Ventilation: N/A; Airway Grade: | | | | | 2a; External Maneuvers: CP, BURP; | | | | | Successful Technique: Mac; | | | | | Laryngoscope Blade Size: 3; | | | | | Attempts: 1; Airway Type: | | | | | endotracheal; Size: 6.5; Airway | | | | | Tube Secured At: 22; Trauma: | | | | | none; Other Equipment: stylette; | | | | | Placement Check: exhaled CO2 | | | | | detection device, bilateral chest | | | | | rise; Removal Date: 08/22/17; | | | | | Removal Time: 1746 | | | +--------+ + + + | CVC | 08/22/17; 1700 (created via | 08/22/17 1700 by | 08/26/17 0731 by | | Double | procedure documentation); 1; Yes; | Lam Granados MD | Maryellen Sosa, | | Lumen | Chlorhexidine/Isopropyl Alcohol; | | RN | | | Yes; Yes; Large sterile drape, | | | | | Sterile gown, Sterile gloves, | | | | | Cap, Mask, All; OR; Dialysis Social Worker; | | | | | Lam Granados MD; New | | | | | indication for central line | | | | | (e.g., hemodynamic monitoring, | | | | | fluid/medication administration, | | | | | etc.); internal jugular vein, | | | | | left; under GA; 16; 7 Fr; | | | | | ultrasound guided; Leslie Leung | | | | | 08/22/2017 PROCEDURE: Central | | | | | Venous Line LOCATION: left | | | | | Internal Jugular Vein | | | | | INDICATION: Hemodynamic | | | | | monitoring intraoperatively, | | | | | fluid therapy, frequent labs. | | | | | PREPROCEDURE VERIFICATION: The | | | | | patient was identified with two | | | | | unique identifiers; procedure and | | | | | sidedness confirmed with care | | | | | team members and the patient as | | | | | appropriate. Informed consent as | | | | | to the indications for the | | | | | central line was done. SEDATION | | | | | & ANALGESIA: General | | | | | endotracheal anesthesia STERILE | | | | | TECHNIQUE: Cap, Mask, Gown, Hand | | | | | Hygiene, Sterile Gloves, Sterile | | | | | Drapes DESCRIPTION: The patient | | | | | was positioned with head away | | | | | from the site of access and | | | | | trendelenburg position as | | | | | tolerated. After pt was prepped | | | | | and fully draped, a sterile | | | | | ultrasound probe was used to | | | | | visualize the vein and | | | | | differentiate it from arteries. | | | | | An 18 gauge needle was advanced | | | | | into the vein with the return of | | | | | venous blood. A wire was advanced | | | | | into the vein and the needle | | | | | removed without difficulty and | | | | | minimal ectopy. After skin janessa | | | | | with scalpel, a dilator was | | | | | passed over the wire and removed. | | | | | Then, a 7 Nauruan 16 cm 2-lumen | | | | | central venous catheter was | | | | | threaded over the wire and the | | | | | wire was removed. Each lumen was | | | | | cleared of air by blood | | | | | aspiration and flush and sutured | | | | | in place. The central line was | | | | | covered with a clear sterile | | | | | occlusive dressing. | | | | | COMPLICATIONS: NONE ; PVC's | | | | | induced, other (see comments); | | | | | all ports aspirated blood; | | | | | removed in past; 08/26/17; 0731 | | | +--------+ + + + | Drain/ | 08/22/17; 1747; Wound Vac; per | 08/22/17 1747 by | 08/26/17 1623 by | | Device | protocol/policy; changed to | Milvia Stokes RN | Aydee Nevarez RN | | Site | different LDA type; 08/26/17; | | | | | 1623 | | | +--------+ + + + | Read | 08/22/17; 1753; Right; shoulder; | 08/22/171753 by | 08/26/171899 by | | only - | 08/26/17; 1899 | Milvia Stokes RN | Chelita Wiggins [...] Postprocedure Evaluation - Lam Granados MD - 08/22/2017 5:58 PM PSTFormatti ng of this note might be different from the original. ANESTHESIA POSTANESTHESIA EVALUATION Leslie Leung 52 y.o. female 1965 [id number] Procedure(s) I&D of Right Shoulder Abscess and Wound Vac Placement (N/A Shoulder) Cooperates? Yes Mental Status Performs simple tasks. Respiratory Satisfactory - Airway patent (self maintained). Cardiovascular Satisfactory - Blood pressure and heart rate acceptable Temperature Satisfactory Pain Satisfactory N/V Control Satisfactory Hydration Satisfactory - No signs of dehydration Complications None apparent pCXR reviewed and L IJ crosses midline appropriately and is well-positioned. Okay to use. Patient wide awake and doing well. Vitals: 08/22/17 1419 08/22/17 1442 08/22/17 1754 BP: 120/76 117/54 Pulse: 81 81 92 Temp: 36.4 C (97.5 F) Resp: 16 SpO2: 100% 99% 98% Electronically signed by Lam Granados MD 08/22/2017 17:57 [facility] by Lam Granados MD at 07/30 5:58 PM PSTAnesthesia Procedure Notes - Lam Granados MD - 08/22/2017 5:35 PM PS TAssociated Order(s): ANE CENTRAL VENOUS NOTECentral Venous Line Placement 08/22/2017 17:00 Indication: intravenous access Insertion reason: new indication for central line Line #: 1 Prep solution: chlorhexidine/isoproplyl alcohol Preparation: central line kit used, staff scrubbed hands and prep allowed to dry Sterile barriers used: cap, mask, sterile gown, sterile gloves, large sterile drape and all Patient was: under GA Vein: left internal jugular Size: 7 Fr Number of Lumens: double lumen Localizaton technique: ultrasound Radiology image stored in patient's chart: ultrasound Catheter depth at skin: 16 cm Port patency: all ports flushed Placement verification: saline column, pvc induced, ultrasound visualization of wire in vei n and aspiration venous colored blood Securement: transparent dressing, sutures and dressing per hospital protocol Complications: no complications noted at this time Person recording: electrical calibrator Performed by: LAM GRANADOS Comments: Leslie Leung 08/22/2017 PROCEDURE: Central Venous Line LOCATION: left Internal Jugular Vein INDICATION: Hemodynamic monitoring intraoperatively, fluid therapy, frequent labs. PREPROCEDURE VERIFICATION: The patient was identified with two unique identifiers; procedure and sidedness confirmed w ith care team members and the patient as appropriate. Informed consent as to the indications for the central line was done. SEDATION & ANALGESIA: General endotracheal anesthesia STERILE TECHNIQUE: Cap, Mask, Gown, Hand Hygiene, Sterile Gloves, Sterile Drapes DESCRIPTION: The patient was positioned with head away from the site of access and trendelenburg positio n as tolerated. After pt was prepped and fully draped, a sterile ultrasound probe was used t o visualize the vein and differentiate it from arteries. An 18 gauge needle was advanced int o the vein with the return of venous blood. A wire was advanced into the vein and the needle removed without difficulty and minimal ectopy. After skin janessa with scalpel, a dilator was passed over the wire and removed. Then, a 7 Nauruan 16 cm 2-lumen central venous catheter wa s threaded over the wire and the wire was removed. Each lumen was cleared of air by blood as piration and flush and sutured in place. The central line was covered with a clear sterile occlusive dressing. COMPLICATIONS: NONE Location performed: OR Electronically Signed by: Lam Granados MD ESig date/time: 08/22/2017 17:35 nesthesia Procedure Notes - Lam Granados MD - 08/22/2017 5:34 PM PSTAssociated Order(s): ANE AIRWAY NOTEAne sthesia Airway Placement 08/22/2017 16:47 Preprocedure check: patient identified, suction, airway equipment checked, oxygen, airway a ssessed and patient reassessment prior to induction Rapid Sequence Induction: no Mask ventilation: N/A External maneuver: BURP and cricoid pressure Successful technique: Mac Laryngoscope blade size: 3 Airway grade: 2a (Partial view of glottis) Other equipment: stylette Attempts: 1 Airway type: endotracheal Size: 6.5 Cuffed: cuffed Route, reference point: right side of mouth Tube depth: 22 cm Tube secured with: adhesive tape Trauma: none Tube placement verification: carbon dioxide detection and bilateral chest rise Performing provider: LAM GRANADOS Electronically Signed by: Lam Granados MD ESig date/time: 17:34 nesthesia Preprocedu re Evaluation - Lam Granados MD - 08/22/2017 4:17 PM PSTFormatting of this note might b e different from the original. ANESTHESIA PREANESTHESIA EVALUATION Leslie Leung 52 y.o. female 1965 [id number] Procedure(s): I&D of Right Shoulder Abscess and Wound Vac Placement (N/A Shoulder) Medical history, anesthesia, medications, allergy, NPO status verified histories reviewed. ECG reviewed. Labs reviewed. Review of Systems / Med History Cardiovascular No results found for this or any previous visit. . Psychology (+) substance abuse (Heroin (endorses using this AM 0700)) Renal Lab Results Component Value Date CREA 0.56 (L) 08/22/2017 BUN 7 08/22/2017 NA 136 08/22/2017 K 4.1 08/22/2017 CL 103 08/22/2017 CO2 24 08/22/2017 . Gastrointestinal/Hepatic (+) hepatitis: type C Other Lab Results Component Value Date WBC 18.3 (H) 08/22/2017 HGB 11.4 (L) 08/22/2017 HCT 34.1 08/22/2017 MCV 85.3 08/22/2017 PLT 290 08/22/2017 . Physical Exam Airway MP II, TM [...] problems: None anticipated. Monitors: Standard ASA monitors. CVC to aid in hemodynamic monitoring and /or hemostasis. Consent statement:Anesthetic plan, alternatives, risks and benefits discussed with patient. Risks discussed included (but were not limited to): sore throat, nausea, heart problems, re spiratory events, pain, perioperative CV events, . Consenting person understands and agrees to proceed. PARQ. IV Access discussion with Dr. Mclain. 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 Will place IJ CVC per surgeon and patient request. Consider full stomach. RSI. documented in this en counter Plan of Treatment Not on filedocumented as of this encounter Procedures + +--------+ + + + | Procedure Name | Priori | Date/Time | Associated Diagnosis | Comments | | | ty | | | | + +--------+ + + + | ANE CENTRAL VENOUS | Routin | 08/22/2017 | | Results for this | | NOTE | e | 5:35 PM | | procedure are in the | | | | PST | | results section. | + +--------+ + + + | ANE AIRWAY NOTE | Routin | 08/22/2017 | | Results for this | | | e | 5:34 PM | | procedure are in the | | | | PST | | results section. | + +--------+ + + + documented in this encounter Results Anesthesia Central Venous Catheter Note (08/22/2017 5:35 PM PST) + + + | Narrative | Performed At | + + + | Lam Granados MD 08/22/2017 17:36 Central Venous Line | | | Placement 08/22/2017 17:00 Indication: intravenous access | | | Insertion reason: new indication for central line Line #: 1 Prep | | | solution: chlorhexidine/isoproplyl alcohol Preparation: central line | | | kit used, staff scrubbed hands and prep allowed to dry Sterile | | | barriers used: cap, mask, sterile gown, sterile gloves, large | | | sterile drape and all Patient was: under GA Vein: left internal | | | jugular Size: 7 Fr Number of Lumens: double lumen Localizaton | | | technique: ultrasound Radiology image stored in patient's chart: | | | ultrasound Catheter depth at skin: 16 cm Port patency: all ports | | | flushed Placement verification: saline column, pvc induced, | | | ultrasound visualization of wire in vein and aspiration venous | | | colored blood Securement: transparent dressing, sutures and dressing | | | per hospital protocol Complications: no complications noted at this | | | time Person recording: electrical calibrator Performed by: LAM GRANADOS | | | Comments: Leslie Leung 08/22/2017 PROCEDURE: Central Venous | | | Line LOCATION: left Internal Jugular Vein | | | INDICATION: Hemodynamic monitoring intraoperatively, fluid therapy, | | | frequent labs. PREPROCEDURE VERIFICATION: The patient was | | | identified with two unique identifiers; procedure and sidedness | | | confirmed with care team members and the patient as appropriate. | | | Informed consent as to the indications for the central line was done. | | | SEDATION & ANALGESIA: General endotracheal anesthesia | | | STERILE TECHNIQUE: Cap, Mask, Gown, Hand Hygiene, Sterile Gloves, | | | Sterile Drapes DESCRIPTION: The patient was positioned with head | | | away from the site of access and trendelenburg position as | | | tolerated. After pt was prepped and fully draped, a sterile | | | ultrasound probe was used to visualize the vein and differentiate it | | | from arteries. An 18 gauge needle was advanced into the vein with | | | the return of venous blood. A wire was advanced into the vein and | | | the needle removed without difficulty and minimal ectopy. After skin | | | janessa with scalpel, a dilator was passed over the wire and removed. | | | Then, a 7 Nauruan 16 cm 2-lumen central venous catheter was | | | threaded over the wire and the wire was removed. Each lumen was | | | cleared of air by blood aspiration and flush and sutured in place. | | | The central line was covered with a clear sterile occlusive | | | dressing. COMPLICATIONS: NONE Location performed: OR | | | Electronically Signed by: Lam Granados MD | | | ESig date/time: 08/22/2017 17:35 | | + + + + + | Procedure Note | + + | Lam Granados MD - 08/22/2017 5:35 PM PST Central Venous Line Placement08/22/2017 | | 17:00Indication: intravenous accessInsertion reason: new indication for central lineLine | | #: 1Prep solution: chlorhexidine/isoproplyl alcoholPreparation: central line kit used, | | staff scrubbed hands and prep allowed to drySterile barriers used: cap, mask, sterile | | gown, sterile gloves, large sterile drape and allPatient was: under GAVein: left | | internal jugularSize: 7 FrNumber of Lumens: double lumenLocalizaton technique: | | ultrasoundRadiology image stored in patient's chart: ultrasoundCatheter depth at skin: | | 16 cmPort patency: all ports flushedPlacement verification: saline column, pvc induced, | | ultrasound visualization of wire in vein and aspiration venous colored bloodSecurement: | | transparent dressing, sutures and dressing per hospital protocolComplications: no | | complications noted at this timePerson recording: inserterPerformed by: LAM GRANADOS | | TComments: Leslie Leung 08/22/2017PROCEDURE: Central Venous LineLOCATION: left | | Internal Jugular Vein INDICATION: Hemodynamic monitoring intraoperatively, | | fluid therapy, frequent labs. PREPROCEDURE VERIFICATION: The patient was identified with | | two unique identifiers; procedure and sidedness confirmed with care team members and | | the patient as appropriate. Informed consent as to the indications for the central line | | was done. SEDATION & ANALGESIA: General endotracheal anesthesiaSTERILE TECHNIQUE: Cap, | | Mask, Gown, Hand Hygiene, Sterile Gloves, Sterile DrapesDESCRIPTION:The patient was | | positioned with head away from the site of access and trendelenburg position as | | tolerated. After pt was prepped and fully draped, a sterile ultrasound probe was used to | | visualize the vein and differentiate it from arteries. An 18 gauge needle was advanced | | into the vein with the return of venous blood. A wire was advanced into the vein and the | | needle removed without difficulty and minimal ectopy. After skin janessa with scalpel, a | | dilator was passed over the wire and removed. Then, a 7 Nauruan 16 cm 2-lumen central | | venous catheter was threaded over the wire and the wire was removed. Each lumen was | | cleared of air by blood aspiration and flush and sutured in place. The central line was | | covered with a clear sterile occlusive dressing.COMPLICATIONS: NONELocation performed: | | OR Electronically Signed by: Lam Granados MD ESi date/time: | | 08/22/2017 17:35 | |PREPROCEDURE VERIFICATION: | |The patient was identified with two unique identifiers; procedure and sidedness confirmed w ith care team members and the patient as appropriate. Informed consent as to the indications for the central line was done. | | | |SEDATION & ANALGESIA: General endotracheal anesthesia | | | |STERILE TECHNIQUE: | |Cap, Mask, Gown, Hand Hygiene, Sterile Gloves, Sterile Drapes | | | |DESCRIPTION: | |The patient was positioned with head away from the site of access and trendelenburg positio n as tolerated. After pt was prepped and fully draped, a sterile ultrasound probe was used t o visualize the vein and | |differentiate it from arteries. An 18 gauge needle was advanced into the vein with the retu rn of venous blood. A wire was advanced into the vein and the needle removed without difficu lty and minimal ectopy. After skin | |janessa with scalpel, a dilator was passed over the wire and removed. Then, a 7 Nauruan 16 cm 2-lumen central venous catheter was threaded over the wire and the wire was removed. Each jess men was cleared of air by blood | |aspiration and flush and sutured in place. | | | |The central line was covered with a clear sterile occlusive dressing. | | | |COMPLICATIONS: NONE | | | |Location performed: OR | | | |Electronically Signed by: Lam Granados MD ESig date/time: 08/22/2017 17:35 | + + Anesthesia Airway Note (08/22/2017 5:34 PM PST) + + + | Narrative | Performed At | + + + | Lam Granados MD 08/22/2017 17:35 Anesthesia Airway | | | Placement 08/22/2017 16:47 Preprocedure check: patient identified, | | | suction, airway equipment checked, oxygen, airway assessed and | | | patient reassessment prior to induction Rapid Sequence Induction: no | | | Mask ventilation: N/A External maneuver: BURP and cricoid pressure | | | Successful technique: Mac Laryngoscope blade size: 3 Airway | | | grade: 2a (Partial view of glottis) Other equipment: stylette | | | Attempts: 1 Airway type: endotracheal Size: 6.5 Cuffed: cuffed | | | Route, reference point: right side of mouth Tube depth: 22 cm Tube | | | secured with: adhesive tape Trauma: none Tube placement | | | verification: carbon dioxide detection and bilateral chest rise | | | Performing provider: LAM GRANADOS Electronically Signed by: | | | Lam Granados MD ESig | | | date/time: 08/22/2017 17:34 | | + + + + + | Procedure Note | + + | Lam Granados MD - 08/22/2017 5:34 PM PST Anesthesia Airway Placement08/22/2017 | | 16:47Preprocedure check: patient identified, suction, airway equipment checked, oxygen, | | airway assessed and patient reassessment prior to inductionRapid Sequence Induction: | | noMask ventilation: N/AExternal maneuver: BURP and cricoid pressureSuccessful | | technique: MacLaryngoscope blade size: 3 Airway grade: 2a (Partial view of | | glottis)Other equipment: styletteAttempts: 1Airway type: endotrachealSize: 6.5Cuffed: | | cuffedRoute, reference point: right side of mouthTube depth: 22 cmTube secured with: | | adhesive tapeTrauma: noneTube placement verification: carbon dioxide detection and | | bilateral chest risePerforming provider: LAM GRANADOS TElectronically Signed by: Lam | | MD Reyes Suresh date/time: 08/22/2017 17:34 | |Other equipment: stylette | |Attempts: 1 | |Airway type: endotracheal | |Size: 6.5 | |Cuffed: cuffed | |Route, reference point: right side of mouth | |Tube depth: 22 cm | |Tube secured with: adhesive tape | |Trauma: none | |Tube placement verification: carbon dioxide detection and bilateral chest rise | |Performing provider: LAM GRANADOS | | | | | |Electronically Signed by: MD Chelo Barbosa date/time: 17:34 | | | + + documented in this encounter Visit Diagnoses Not on filedocumented in this encounter Administered Medications + +--------+ +-------+------+------+ | Medication Order | MAR | Action | Dose | Rate | Site | | | Action | Date | | | | + +--------+ +-------+------+------+ | dexamethasone (PF) 10 mg/mL | Given | 08/22/19 | 10 mg | | | | injection Intravenous, PRN, | | 18 5:26 | | | | | Starting May 08/22/17 at 1726, | | PM PST | | | | | Anesthesia Intra-op | | | | | | + +--------+ +-------+------+------+ +---+---+ | | | +---+---+ + +-------+ +---------+---+---+ | fentaNYL (PF) injection | Given | 08/22/19 | 100 mcg | | | | Intravenous, PRN, Pain, Starting | | 18 4:46 | | | | | May 08/22/17 at 1646, Anesthesia | | PM PST | | | | | Intra-op | | | | | | + +-------+ +---------+---+---+ +---+---+ | | | +---+---+ + +---------+ +---+---+---+ | lactated ringers (LR) infusion | New Bag | 08/22/19 | | | | | Intravenous, CONTINUOUS PRN, | | 18 4:38 | | | | | Starting May 08/22/17 at 1638, | | PM PST | | | | | Anesthesia Intra-op | | | | | | + +---------+ +---+---+---+ +---+---+ | | | +---+---+ + +-------+ +-------+---+---+ | lidocaine (PF) 2% injection | Given | 08/22/19 | 70 mg | | | | PRN, Starting May 08/22/17 at | | 18 4:46 | | | | | 1646, Anesthesia Intra-op | | PM PST | | | | + +-------+ +-------+---+---+ +---+---+ | | | +---+---+ + +-------+ +------+---+---+ | midazolam (VERSED) 1 mg/mL | Given | 08/22/19 | 2 mg | | | | injection Intravenous, PRN, | | 18 4:38 | | | | | Anxiety, Starting May 08/22/17 at | | PM PST | | | | | 1638, Anesthesia Intra-op | | | | | | + +-------+ +------+---+---+ +---+---+ | | | +---+---+ + +-------+ +-------+---+---+ | morphine 10 mg/mL injection | Given | 08/22/19 | 10 mg | | | | Intravenous, PRN, Pain, Starting | | 18 5:20 | | | | | May 08/22/17 at 1720, Anesthesia | | PM PST | | | | | Intra-op | | | | | | + +-------+ +-------+---+---+ +---+---+ | | | +---+---+ + +-------+ +------+---+---+ | ondansetron (ZOFRAN) injection | Given | 08/22/19 | 4 mg | | | | PRN, Nausea, Vomiting, Starting | | 18 5:26 | | | | | May 08/22/17 at 1726, Anesthesia | | PM PST | | | | | Intra-op | | | | | | + +-------+ +------+---+---+ +---+---+ | | | +---+---+ + +-------+ +--------+---+---+ | propofol (DIPRIVAN) injection | Given | 08/22/19 | 140 mg | | | | Intravenous, PRN, Starting May | | 18 4:46 | | | | | 08/22/17 at 1646, Anesthesia | | PM PST | | | | | Intra-op | | | | | | + +-------+ +--------+---+---+ +---+---+ | | | +---+---+ + +-------+ +-------+---+---+ | succinylcholine (ANECTINE) | Given | 08/22/19 | 80 mg | | | | injection Intravenous, PRN, | | 18 4:46 | | | | | Starting [facility] 08/22/17 at 1646, | | PM PST | | | [...] | | | | First dose on [facility] 08/22/17 at | | | | | [...]
--- OUTSIDE RECORDS SUMMARY | ~2020-03-20 | XMS | Encounter Summary ---
Demographics + + + | Address | [address] | | | [place] [address] | + + + | Home Phone | | + + + | Preferred Language | Unknown | + + + | Marital Status | | + + + | Moravian Affiliation | 1013 | + + + [...] | + + +---------+ + | Wily Vegay | ECON | Unknown | | + + +---------+ + Care Team Providers + +------+ + | Care Scrummaster Name | Role | Phone | + +------+ + PCP | Unavailable | + +------+ + Encounter Details +--------+ + + + + | Date | Type | Department | Care Team | Description | +--------+ + + + + | 07/22/ | Hospital | [facility] | Aldair Vences MD | | | 2004 | Encounter | [facility] | [address] | | | | | EMERGENCY [address] | [place] | | | | | [place] | [phone] | | | | | [address] | | | | | | [phone] | Physician, Er | | +--------+ + [...]
--- OUTSIDE RECORDS SUMMARY | ~2020-03-20 | XMS | Encounter Summary ---
Demographics + + + | Address | [address] | | | [place] [address] | + + + | Home Phone | | + + + | Preferred Language | Unknown | + + + | Marital Status | | + + + | Protestant Affiliation | 1013 | + + + | Race | Unknown | + + + | Ethnic Group | Not or | + + + Author + + + | Author | [facility] | | | and [place] | + + + | Organization | [facility] | | | [...] Team Providers + +------+ + | Care Bee Worker Name | Role | Phone | + +------+ + | No, Physician | PCP | Unavailable | + +------+ + Reason for Visit + +--------+ + | Reason | Onset | Comments | | | Date | | + +--------+ + | Letter for | 08/29/ | | | School/Work | 2018 | | + +--------+ + Encounter Details +--------+ + + + + | Date | Type | Department | Care Team | Description | +--------+ + + + + | 08/29/ | Telephone | [facility] | Ernesto Mclain | Letter for | | 2017 | | ORTHOPEDIC SURGERY | MD [address] | School/Work | | | | [address] | [place] | | | | | [place] | [id number] | | | | | [address] | | | | | | [phone] | | | +--------+ + + + [...] this encounter Miscellaneous Notes Telephone Encounter - Ursula Rudolph, Train Engineer - 08/29/2017 2:49 PM PSTCalled antonio ent concerning her message that per Dr. Mclain patient should take at least 1 week off fr om work to have time to heal. Patient verbalized understanding. Patient would like a letter at her visit. P M PSTTelephone Encounter - Estrella Montague - 08/29/2017 11:19 AM PSTPaitent called stating that she needs to know if she can go back to work. 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 Patient would need a note for work if the Dr orona dvises her to not go back to work immediately. Please call Leslie at [phone] DOS 08/22/17 Irrigation, debridement and removal of wound VAC with closure over a #15 round drain documented in this encounter Plan of Treatment Not on filedocumented as of this encounter Visit Diagnoses Not on filedocumented in this encounter"
--- OUTSIDE RECORDS SUMMARY | ~2020-03-20 | XMS | Encounter Summary ---
Demographics + + + | Address | [address] | | | [place] [address] | + + + | Home Phone | | + + + | Preferred Language | Unknown | + + + | Marital Status | | + + + | Roman Catholic Affiliation | 1013 | + + + | Race | Unknown | + + + | Ethnic Group | Not or | + + + Author + + + | Author | [facility] | | | and [place] | + + + | Organization | [facility] | | [...] Team Providers + +------+ + | Care Paramedic Name | Role | Phone | + +------+ + | Miguel Gomez | PCP | | + +------+ + Reason for Visit + +--------+ + | Reason | Onset | Comments | | | Date | | + +--------+ + | Lab Order | 03/04/ | | | | 2018 | | + +--------+ + Encounter Details +--------+ + + + + | Date | Type | Department | Care Team | Description | +--------+ + + + + | 03/04/ | Telephone | [facility] | Pop Garcias, | Lab Order | | 2019 | | [facility] | PharmD [address] | | | | | PHARMACOTHERAPY | [place], [place] | | | | | CLINIC [address] | [phone] | | | | | [place], [place] | | | | | | [address] | | | | | | [phone] | | | +--------+ + + + [...] Telephone Encounter - Pop Garcias PharmD - 03/04/2019 9:41 AM PDTCalled interapth as w e were sent only results for a HBsAG and anti HBs, but no Hep B Core AB. They have not scan alec in her orders yes so not sure if it was missed or not. The hot plate plywood press laborer I spoke to said she is able to add the order and get it ran. She will call back if she has questions. Pop Garcias PharmD 03/04/2019 9:44 documented in this encounter Plan of Treatment Not on filedocumented as of this encounter Visit Diagnoses Not on filedocumented in this encounter"
--- OUTSIDE RECORDS SUMMARY | ~2020-03-20 | XMS | Encounter Summary ---
Demographics + + + | Address | [address] | | | [place] [address] | + + + | Home Phone [...] Team Providers + +------+ + | Care Business Solutions Architect Name | Role | Phone | + +------+ + | Miguel Gomez | PCP | | + +------+ + Reason for Visit +---------+--------+ + | Reason | Onset | Comments | | | Date | | +---------+--------+ + | Results | 02/16/ | | | | 2019 | | +---------+--------+ + Encounter Details +--------+ + + + + | Date | Type | Department | Care Team | Description | +--------+ + + + + | 02/16/ | Telephone | [facility] [place] | [facility], | Results | | 2019 | | GASTROENTEROLOGY | [address] | | | | | [address] [place] | [address] | | | | | [address] [place], [place] | [place], [place] | | | | | [address] | [id number] | | | | | [phone] | | | +--------+ + + + [...] Telephone Encounter - Bouchra Wick CMA - 02/16/2019 2:56 PM PDTWent over results wi th patient. Labs are in order to be able to send her for treatment of HCV. The referral has been entered and approved. Told patient she should be hearing from GI pharmacist soon for tr eatment. Patient verbalized understanding. documented in this encounter Plan of Treatment Not on filedocumented as of this encounter Visit Diagnoses Not on filedocumented in this encounter"
--- OUTSIDE RECORDS SUMMARY | ~2020-03-20 | XMS | Encounter Summary ---
Demographics + + + | Address | [address] | | | [place] [address] | + + + | Home Phone [...] + + + | Author | [facility] | | | and [place] | + + + | Organization | [facility] | | | [...] Team Providers + +------+ + | Care Environmental Quality Analyst Name | Role | Phone | + +------+ + | Miguel Gomez | PCP | | + +------+ + Reason for Visit Evaluate & Treat (Routine) +--------+--------+ + + + + | Status | Reason | Specialty | Diagnoses / | Referred By | Referred To | | | | | Procedures | Contact | Contact | +--------+--------+ + + + + | Closed | | Infusion | Diagnoses | | Mohl, | | | | Therapy | Chronic | Marialuisa, | Pop W, | | | | | hepatitis C | Pascale, | PharmD [address] | | | | | without | [employer]ER [address] | | | | | hepatic coma | [address] | [place], | | | | | (HCC) | [address] | [place] [address] | | | | | | [place], | Phone: | | | | | | [place] [address] | [phone] | | | | | | Phone: | Fax: | | | | | | [phone] | [phone] | | | | | | Fax: | | | | | | | [phone] | | +--------+--------+ + + + + Encounter Details +--------+---------+ + + + | Date | Type | Department | Care Team | Description | +--------+---------+ + + + | 02/26/ | Office | DEMETRIUS OLIVARES | [facility] | Chronic hepatitis C | | 2019 | Visit | MED CTR | [address] | without hepatic coma | | | | PHARMACOTHERAPY | [address] | (HCC) (Primary Dx) | | | | CLINIC [address] | [place], [place] | | | | | [place], [place] | [address] | | | | | [address] | | | | | | [phone] | Pop Garcias W, | | | | | | PharmD [address] | | | | | | ST [place], [place] | | | | | | [address] | | | | | | | | +--------+---------+ + + + [...] + + + + | Weight | - | - | | + + + + + | Height | - | - | | + + + + + | Body Mass Index | - | - | | + [...] + + documented as of this encounter Patient Instructions Patient Instructions Pop Garcias PharmD - 02/26/2019 2:30 PM PDTFormatting of this not e might be different from the original. HEPATITIS C AFTER VISIT SUMMARY [facility] [phone] Instructions for Today: 1. You have been prescribed Mavyret three tablets by mouth daily," for 8 weeks. 2. I will call you once we have confirmation from the pharmacy that the medication has been approved by your insurance company. 3. Please call our clinic as soon as you receive your medication and ask to speak with Angel Luis burr. 4. You will be scheduled to have blood work done based on your start date. Thus it is very important you do not start taking your medication without calling the clinic first. 5. Please notify us of any medication changes including prescription medications, over-the- counter medications, herbal/naturopathic remedies, or supplements. 6. Please notify our clinic right away if you need a medication for heartburn because some of these medications will interact. 7. It is important that you remain compliant with your medication and do not miss any doses . Please call our clinic right away if you miss a dose. If you miss doses of your medication it may become less effective,may not cure Hepatitis C, and your insurance may stop covering the medication.The pill box provided in clinic today will help you keep track of your daily dose. 8. Avoid alcohol use as this can harm your liver. Use marijuana with caution as it is uncle ar if using it can increase your risk of cirrhosis. 9. Our clinic is open Saturday through Saturday from 8:00am until 4:30pm. We are NOT an emergen cy clinic and do not have an inventory controller number. If you are experiencing a life-threatening liam gency please call 911 or go to the nearest emergency room. If you are not experiencing a lif e-threatening emergency and call after business hours please leave a message and someone oneil l return your call the next business day. 10. Avoid over the counter NSAIDs (such as ibuprofen/Advil/Motrin, naproxen/Aleve) or Aspir in use as it can worsen your liver and kidney function and increase your risk of stomach/int estinal bleeding. Hepatitis C: Know the Facts Many people don t know the facts about hepatitis C. You may be concerned about things you ve heard. Read on to learn what s true about hepatitis C virus (HCV) infection and what s not. Facts about HCV infection: You can still have sex. Hepatitis C can be spread through sex, but this is uncommon. You r partner is safest if you use a latex condom correctly every time you have sex. If you re in a committed relationship, you may not need to change your habits. Talk it over with your partner and do what feels right for both of you. The risk of Hepatitis C being spread throu gh sex increases with multiple sex partners, sex during menses, sex when coinfected with HIV , unprotected anal intercourse, use of recreational drugs during sex, sex with STDs, group s ex, blood exposure during sex, and shared sex toys. Your family members are safe. Hepatitis C can only be spread through contact with infect ed blood. Touching, kissing, sneezing, and sharing food are all safe, as long as there is no blood exposure. But sharing anything that may have blood on it, like a toothbrush, needles, sharps,or razors, is not. Protect yourself and others by avoiding other people s blood. If you are bleeding, try to take care of the wound yourself. Anyone who helps you should wear latex gloves. Use blea ch to clean up any spilled blood. Cover open cuts or sores with a bandage so others will not be exposed to your blood. Most people with hepatitis C don t of it. Avoiding alcohol, losing weight,and ta ana other steps to protect your liver greatly reduces your chances of having life-threateni ng liver problems. If you are a woman, you can still become . Etswkb-mq-rgyqo HCV transmission occu rs in approximately 4% of HCV-infected women. Infants born to HCV-infected mothers should have follow-up for evaluation of possible HCV infection. If you are a woman, you can still breastfeed. If you are being treated for hepatitis C, or if your nipples are cracked or bleeding, you should not breastfeed. Otherwise, breastfeed ing with hepatitis C is safe. There is no vaccine for HCV. People who have been cured can get the disease again. It is important that you practice prevention strategies to avoid ongoing risk of exposure. You should avoid donating blood, tissue, or semen to prevent spreading Hepatitis C to ot hers. Avoid new use of injection drugs and remain abstinent from reusing. If you cannot abstai n from injection drugs use new, sterile needles and syringes each time you inject, do not re use needles or syringes, do not share needles or syringes, safely dispose of needles and syr inges, do not reuse or share other injection materials such as cookers, cottons, water, or d rug, and receive substance use treatment and support for safe injection practices. [id number] [facility]. [address] [place] [address], [place] [address]. All righ ts reserved. This information is not intended as a substitute for professional medical care. Always follow your healthcare professional's instructions Tylenol Containing Products *AVOID USE OR LIMIT TO 2,000 mg PER DAY FROM ALL SOURCES* Acehin Coldrine Midol PM Acetal Comtrex Midol Teen Acetaminophen Suspension Contac Day & Night Allergy/SInus Migrainex Acetaminophen Uniserts Suppository Contac Day & Night Colds and Flu Nyquil Actamin Coricidin Ornex Actifed Plus Coricidin D Pamprin Actifed Sinus Daytime/Nightime Coricidin Sinus Headache Percogesic Jessica-Aulander LiquiGel Dristan Cold Multi-Symptom Formula Robitussin Night Relief Allerest Headache Strength Drixoral Cold and Flu Sine-Aid Allergy Sinus Comtrex Drixoral Cough and Sore Throat SInarest Aminofen Dynafed EX Sinutab Anacin Aspirin Free Dyspel Stanback AF Aspirin-Free Exceeding Excedrin ES Groves's Cold Tablet for Children Aspirin-Free Pain Relief Excedrin PM Sudafed Cold and Cough Aspirin-Free Tyra Select Headache Femcaps Sudafed Severe Cold Aspirin-Free Tyra Head and Cold Feverall Adult Strength Tapanol Aspirin-Free Tyra Select Allergy-Sinus Feverall Jr. Tempra Bromo-Selzer Legatrin PM Triaminic Sore Throat Children's Cepacol Liquiprin for Children Tylenol and Tylenol Preparations Children's Dynafed Mapap Valorin Children's Tylenol Cold Plus Cough Midol Menstrual Regular Strength Multisymptom XS Hangove r Relief Acetaminophen Over-the counter medications containing acetaminophen (a common brand is Tylenol) should be avoided in patients with liver damage. Some prescription pain medications such as [place]a (hydrocodone with acetaminophen) and Pe rcocet (oxycodone with acetaminophen) contain Tylenol. It is important to always check with your health care provider before starting any prescribed pain medications. There are many brands of medications that may contain acetaminophen. This is not a compl ete list. Often product ingredients change with time so it is important to always check with your health care provider before purchasing any over- the-counter (non-prescribed) medicine . Natural Medicine Use Discuss with your pharmacist or doctor before starting any new natural medications or barakat pplements, home remedies, or homeopathic medications. When used together your hepatitis C me dication may not work as well. Do not take Katie's wort while being treated with some hepatitis C medications. Please a sk your pharmacist before taking. documented in this encounter Progress Notes Pop Garcias PharmD - 02/26/2019 2:30 PM PDT [facility] Infusion [facility] New Patient Visit: Hepatitis C Provider: Pop Garcias PharmD Visit Date: 02/26/2019 Patient: Leslie Wilson : 1965 CSN: [id number] Leslie Wilson is a 53 y.o. White non- female who has been referred to the [facility] by DL Ovalles for Hepatitis C medication treatme nt. ASSESSMENT Leslie has no prior history of Hepatitis C treatment. Patient genotype is 1a. Leslie's APRI=0 .506 and her ICD-10 diagnosis code is B18.2. Leslie does not have a history of depression, an xiety, emotional liability, irritability or insomnia. Patient is currently under the care of DL Ovalles. There have been no hospital admissions for ascites, hepatic encep halopathy, jaundice, or gastrointestinal bleed. Leslie does not have untreated hepatocellular carcinoma and does not have decompensated cirrhosis (Umpir-Bdjbzveo-Cxwf class B or C, typ ically with ascites, encephalopathy, coagulopathy, or hyperbilirubinemia). Leslie informed me that Hepatitis C most likely occurred 20 years ago due to history of IV d rug use. This risk is no longer a contributing factor to future contamination with the virus . Medications were reviewed for drug interactions. No significant interactions were identifie d. CAGE questionnaire reveals Leslie has no indication of having alcohol problems. Last use of alcohol: other night, typical is 1-2 drinks every few months Last use of marijuana: 9 months ago Last use of illicit drugs: 3 months ago, receiving treatment at the methadone clinic. Guideline recommendation had no limitations for genotype 1. Patient still has MODA insuran ce and their preferred is Mavyret for 8 weeks. Given patient has no cirrhosis and no drug in teractions that require specific treatment will go with what her insurance wants. Plan Hepatitis C: 1. Initiate treatment with Mavyret 100mg/40mg take three tablets by mouth daily with food f or 8 weeks. Patient prefers to use Amanda and an electronic prescription has been sent. Leslie has been advised that we will call her once insurance coverage of the medication has been c onfirmed. 2. Exposure of Hepatitis C occurred greater than 6 months ago and does not require retestin g for HCV RNA. 3. Leslie does not have coinfection with HIV. 4. Leslie does not have immunity to Hepatitis A and unknown immunity to Hepatitis B. Educa tion was provided regarding increased risk of accelerated hepatic fibrosis and liver failure with Hepatitis A/B coinfection 5. Leslie did not have her Hep B panel assessed with baseline labs. This needs to be done b efore treatment can be initiated. Wrote for Hep B panel to be drawn and gave her paper copi es of the orders as she wanted to have these drawn at [facility]. Reports she is a diffi cult stick. Orders Placed This Encounter Procedures Hepatitis B Surface Ab Standing Status: Future Standing Expiration Date: 02/27/2020 Hepatitis B Surface Ag Standing Status: Future Standing Expiration Date: 02/27/2020 Hepatitis B Core Ab, Total Standing Status: Future Standing Expiration Date: 02/27/2020 6. Current alcohol use is minimal. Risks of further liver toxicity from consuming alcohol, even moderate amounts (50 g/day or more), have been discussed and patient agrees to abstain from drinking alcohol during Hepatitis C treatment. 7. Patient is not currently on any hepatotoxic medications. Leslie is agreeable to calling u s prior to starting any new prescription or ilol-bqy-hhodnxm medications, herbals, or supple ments. 8.. Leslie rarely uses acetaminophen-containing products. Advised abstaining from use of the se products and provided with a list of OTC products that contain acetaminophen. Leslie agre es to comply with this recommendation or to avoid taking more than 2,000 mg (2 g) per day fr om all sources if abstinence cannot be achieved. 9. Leslie has been counseled to report any medications used for heartburn such as PPIs or H -2 blockers. 10. Leslie has been counseled to avoid NSAIDS and ASA containing products to prevent worsen ing of portal HTN and GI bleeding. Disease state and medication education was provided to Leslie including avoiding donation of blood, tissue or semen, never sharing razors, toothbrushes, nail clippers or other hygiene products that could be contaminated with blood to reduce the transmission of Hepatitis C to other individuals, the low risk of transmitting HCV sexually to their monogamous sex partner , sharing needles and equipment used to prepare illicit drugs is associated with increased r isk or transmitting and jese HCV, and that transmission of HCV to others in the house hold is rare. Leslie has been counseled that reinfection with HCV is possible and prevention strategies should be used bed bug exterminator if ongoing risk exists. Leslie has been counseled that th krzysztof risk of transmitting HCV sexually to their partner increases with multiple sex partners, s ex during menses, those co-infected with HIV, unprotected anal intercourse, use of recreatio nal drugs during sex, sex with STDs, group sex, blood exposure and shared sex toys. Subjective/Objective Reason for Visit: Initiation of Hepatitis C medication treatment. Hepatitis C was diagnosed prior to referral to our clinic and confirmed with a positive HCV RNA test and positive anti-HCV antibody test. Patient does not have a history of liver gilbert splant. Past medical and psychiatric history: Active Ambulatory Problems Diagnosis Date Noted Abscess of deltoid region 08/22/2017 Substance abuse 08/22/2017 Hepatitis C 08/22/2017 Heroin abuse 08/22/2017 Resolved Ambulatory Problems Diagnosis Date Noted No Resolved Ambulatory Problems Past Medical History: Diagnosis Date Hepatitis C Tobacco abuse Medical co-morbidities: Patient Active Problem List Diagnosis Abscess of deltoid region Substance abuse Hepatitis C Heroin abuse A complete verbal review of systems was conducted and patient reports no positive findings. Patient denies dark urine, jaundice, flu-like symptoms, pale stool, nausea, abdominal pain, dyspepsia, fatigue, arthralgia, neuropathy, nephropathy, glomerulonephritis, livedo reticul andry, lichen planus, cold agglutinin disease, paresthesia, myalgia, pruritus, sicca syndrome , spider nevi, distended abdominal veins, Alberto's nails, palmar erythema, gynecomastia, daina pheral edema and ascites. LABORATORY FINDINGS Lab Results Component Value Date ALT 31 08/23/2017 AST 37 08/23/2017 ALKPHOS 68 08/23/2017 BILITOT 0.3 08/23/2017 WBC 13.2 (H) 08/28/2017 MCV 85.9 08/28/2017 CREA 0.91 08/27/2017 HCT 32.7 (L) 08/28/2017 HGB 10.7 (L) 08/28/2017 CrCl cannot be calculated (Patient's most recent lab result is older than the maximum 3 day s allowed.). CrCl cannot be calculated (Patient's most recent lab result is older than the maximum 3 day s allowed.). No results found for this or any previous visit. Hepatitis C Ab Date Value Ref Range Status 08/23/2017 >11.0 (H) 0.0 - 0.9 s/co ratio Final Comment: Negative: < 0.8 Indeterminate: 0.8 - 0.9 Positive: > 0.9 The CDC recommends that a positive HCV antibody result be followed up with a HCV Nucleic Acid Amplification test (233410). HEP A IGM Date Value Ref Range Status 09/19/2017 Non Reactive Non Reactive Final Hepatitis B Core Ab, Total Date Value Ref Range Status 09/19/2017 Non Reactive Non Reactive Final Hepatitis B Surface Ag Date Value Ref Range Status 08/23/2017 Negative Negative Final Vaccine history: There is no immunization history on file for this patient. Vitals: BP 141/86 | Pulse 80 | Temp 36.1 C (97 F) (Oral) | Resp 18 | SpO2 98% Medications: Outpatient Medications aspirin 81 mg chewable tablet (Taking) Take 81 mg by mouth Daily. methadone 1 mg/mL solution (Taking) Take 130 mg by mouth Daily. I spent 30 minutes face to face with the patient, with over 50% of time spent in education of Leslie's medications, the risks and benefits of proceeding as above, and answering questio ns regarding treatment and outcomes. Kang SaucedaD DATE/TIME: 02/26/2019 14:15 documented in this encounter Plan of Treatment Not on filedocumented as of this encounter Procedures + +--------+ + + + | Procedure Name | Priori | Date/Time | Associated Diagnosis | Comments | | | ty | | | | + +--------+ + + + | LABS - EXTERNAL SCAN | | 03/02/2019 | | Results for this | | | | 12:00 AM | | procedure are in the | | | | PDT | | results section. | + +--------+ + + + documented in this encounter Results LABS - EXTERNAL SCAN (03/02/2019 12:00 AM PDT) + + + | Narrative | Performed At | + + + | Ordered by an | | | unspecified provider. | | + + + documented in this encounter Visit Diagnoses + + | Diagnosis | + + | Chronic hepatitis C without hepatic coma (HCC) - Primary | + + documented in this encounter
--- OUTSIDE RECORDS SUMMARY | ~2020-03-20 | XMS | Encounter Summary ---
Demographics + + + | Address | [address] | | | [place] [address] | + + + | Home Phone | | + + + | Preferred Language | Unknown | + + + | Marital Status | | + + + | Quaker Affiliation | 1013 | + + + | Race | Unknown | + + + | Ethnic Group | Not or | + + + Author + + + | Author | [facility] | | | and [place] | + + + | Organization | [facility] | | [...] Team Providers + +------+ + | Care Cut To Length Operator Name | Role | Phone | + +------+ + | Miguel Gomez | PCP | | + +------+ + Reason for Referral Evaluate & Treat (Routine) +--------+--------+ + + + + | Status | Reason | Specialty | Diagnoses / | Referred By | Referred To | | | | | Procedures | Contact | Contact | +--------+--------+ + + + + | Closed | | Infusion | Diagnoses | | Mohl, | | | | Therapy | Chronic | [place], | Pop W, | | | | | hepatitis C | Pascale, | PharmD [address] | | | | | without | CAFETERIA COOK [address] | | | | | hepatic coma | [address] | [place], | | | | | (HCC) | [address] | [place] [address] | | | | | | [place], | Phone: | | | | | | [place] [address] | [phone] | | | | | | Phone: | Fax: | | | | | | [phone] | [phone] | | | | | | Fax: | | | | | | | [phone] | | +--------+--------+ + + + + Reason for Visit +---------+--------+ + | Reason | Onset | Comments | | | Date | | +---------+--------+ + | Results | 02/11/ | Referral to GI pharmacist | | | 2018 | | +---------+--------+ + Encounter Details +--------+ + + + + | Date | Type | Department | Care Team | Description | +--------+ + + + + | 02/11/ | Telephone | [facility] | [facility], | Results (Referral to | | 2019 | | GASTROENTEROLOGY | [address] | GI pharmacist) | | | | [address] | [address] | | | | | [address] | [place] | | | | | [address] | [id number] | | | | | [phone] | | | +--------+ + + + [...] Encounter - Bouchra Wick CMA - 02/16/2019 9:35 AM PDTLeft message that la bs are stable and in order so that patient can be referred to GI pharmacist for treatment of HCV. Once that is approved the pharmacist will call her to set up appointment.Electronicall y signed by Bouchra Wick CMA at 02/16/2019 9:39 AM PDTTelephone Encounter - Av Turcios - 02/11/2019 3:06 PM PDTLabs have been received and copy given to Ammy.Loco butler signed by Gloria Turcios at 02/11/2019 3:06 PM PDTTelephone Encounter - Sue Turcios quinn L - 02/11/2019 1:35 PM PDTPatient called back saying that she had spoke with [facility] and the reason that they hadn't sent us the labs is because we didn't have an acct with them, this is her understanding. I will call [facility] and request the labs. They are be ing faxed over now. ele phone Encounter - Sita Ochoa - 02/11/2019 1:21 PM PDTPatient called to speak with Cande mcduffie or her clinical staff regarding "the labs that she had done weeks ago at [facility]. She would like to get those results". Please advise and call patient back at [phone] documented in this en counter Plan of Treatment + + +--------+ + + | Name | Type | Priori | Associated Diagnoses | Order Schedule | | | | ty | | | + + +--------+ + + | * [facility] | Outpatient | Routin | Chronic hepatitis | Ordered: 02/16/2019 | | PharmD - AMB | Referral | e | C without hepatic | | | Referral | | | coma (HCC) | | + + +--------+ + + documented as of this encounter Visit Diagnoses + + | Diagnosis | + + | Chronic hepatitis C without hepatic coma (HCC) - Primary | + + documented in this encounter
--- OUTSIDE RECORDS SUMMARY | ~2020-03-20 | XMS | Encounter Summary ---
Demographics + + + | Address | [address] | | | [place] [address] | + + + | Home Phone | | + + + | Preferred Language | Unknown | + + + | Marital Status | | + + + | Adventism Affiliation | 1013 | + + + [...] Team Providers + +------+ + | Care Fire Alarm Repairer Name | Role | Phone | + +------+ + | Miguel Gomez | PCP | | + +------+ + Encounter Details +--------+ + + + + | Date | Type | Department | Care Team | Description | +--------+ + + + + | 03/05/ | Documentati | DEMETRIUS OLIVARES | [facility], | | | 2019 | on | MED CTR | PharmD [address] | | | | | PHARMACOTHERAPY | [place], [place] | | | | | CLINIC [address] | [address] | | | | | [place], [place] | | | | | | [address] | | | | | | [phone] | | | +--------+ + + + [...] documented as of this encounter Progress Notes Pop Garcias PharmD - 03/05/2019 3:27 PM PDTPatient got her Hep B panel drawn. Anti-HBc: negative HBsAG: negative Anti-HBs: negative This means she has not been exposed to Hep B, does not have current infection, and is not i mmune to the virus. Will recommend vaccination and start process to get Hep C treatment. Pop Garcias PharmD 03/05/2019 15:29 documented in this encounter Plan of Treatment Not on filedocumented as of this encounter Visit Diagnoses Not on filedocumented in this encounter"
--- OUTSIDE RECORDS SUMMARY | ~2020-03-20 | XMS | Encounter Summary ---
Demographics + + + | Address | [address] | | | [place] [address] | + + + | Home Phone | | + + + | Preferred Language | Unknown | + + + | Marital Status | | + + + | Hindu Affiliation | 1013 | + + + [...] | | + + +---------+ + | [employer] ECON | Unknown | | + + +---------+ + Care Team Providers + +------+ + | Care Sports Management Professor Name | Role | Phone | + +------+ + | Miguel Gomez | PCP | | + +------+ + Encounter Details +--------+ + + + + | Date | Type | Department | Care Team | Description | +--------+ + + + + | 03/05/ | Orders Only | [facility] | [facility] | Chronic hepatitis C | | 2019 | | [facility] | PharmD [address] | without hepatic coma | | | | PHARMACOTHERAPY | [place], [place] | (HCC) (Primary Dx) | | | | CLINIC [address] | [id number] | | | | | [place], [place] | | | | | | [address] | | | | | | [phone] | | | +--------+ + + + [...]
--- NOTE | 2020-03-22 10:56 | EKG ---
[facility] [address] [facility] [place] [address] Signed Sinus rhythm with frequent premature ventricular complexes Otherwise normal ECG No previous ECGs available Confirmed by WARREN TOVAR MD ([id number] on 03/22/2020 10:56:12 AM Electronically Signed By: WARREN TOVAR MD 03/22/20 1056 PATIENT NAME: JESSICA COONEY Electrocardiogram DATE OF : 61 PHYSICIAN: WARREN TOVAR MD REPORT #: [id number] REPORT IS CONFIDENTIAL AND NOT TO BE RELEASED WITHOUT AUTHORIZATION
== END 2020-03-20 12:26 | disposition home or self-care (01) ==
LOC: ED 10:09
DX: R07.9 Chest pain, unspecified (principal); F17.200 Nicotine dependence, unspecified, uncomplicated; Z88.2 Allergy status to sulfonamides; Z88.1 Allergy status to other antibiotic agents
CPT/HCPCS: 36415; 71046; 80053; 84484; 85025; 93005; 93010; 99285-25